=== PATIENT | female | born 1950 | race Caucasian/White ===

== ENCOUNTER 2016-08-01 19:05 | Emergency (ER) | payer OTHER ==
[2016-08-01 19:18] VITALS: BP 133/67; PULSE 94; RESP 16; TEMP 98.1; O2SAT 89
--- NOTE | 2016-08-01 20:04 | EDPHY ---
H & P Time Seen by Provider: 08/01/16 19:35 HPI/ROS: CHIEF COMPLAINT: out of medication HISTORY OF PRESENT ILLNESS: Patient is a 66-year-old female with a history of scleroderma on chronic pain medicine who presents to the emergency department running out of her Oxy IR. She states that she had medicine due to the holiday. She has been unable to get into Dr. Mcfadden's office for refill. She has no new complaints. She has her typical pain. It is mild to moderate. No shortness of breath, chest pain, nausea or vomiting. REVIEW OF SYSTEMS: My complete review of systems is negative except as mentioned in the HPI. Past Medical/Surgical History: Cecal CA, Sjogren syndrome, Raynaud syndrome, bipolar disorder, SVT, depression , diabetes, coronary artery disease, scleroderma, Past surgical history: Includes hemicolectomy right hip ORIF, cholecystectomy, bilateral hernia repair Smoking Status: Heavy smoker Physical Exam: Vitals noted GENERAL: Well-appearing, in no acute distress, alert. HEENT: Eyes normal to inspection, normal pharynx, no signs of dehydration. NECK: No thyromegaly, no lymphadenopathy, supple. RESPIRATORY: Clear to auscultation bilaterally, no rales, rhonchi or wheezing. CVS: Regular rate and rhythm, no rubs, murmurs, or gallops. ABDOMEN: Soft, nontender, nondistended, no organomegaly. BACK: Normal to inspection, no CVA tenderness. SKIN: Normal color, no rash, warm, dry. No pallor. EXTREMITIES: No pedal edema, no calf tenderness, no joint swelling. NEURO/PSYCH: Alert and oriented x3, normal mood and affect Constitutional: Initial Vital Signs Temperature (C) 36.7 C 08/01/16 19:15 Heart Rate 94 08/01/16 19:15 Respiratory Rate 16 08/01/16 19:15 Blood Pressure 133/67 H 08/01/16 19:15 O2 Sat (%) 89 L 08/01/16 19:15 O2 Delivery Mode Room Air Allergies/Adverse Reactions: lorazepam [From Ativan] Allergy (Severe, Verified 08/01/16 19:13) fluconazole [From Diflucan] Allergy (Intermediate, Verified 08/01/16 19:13) Penicillins Allergy (Intermediate, Verified 08/01/16 19:13) Sulfa (Sulfonamide Antibiotics) Allergy (Intermediate, Verified 08/01/16 19:13) haloperidol [From Haldol] Allergy (Verified 08/01/16 19:13) haloperidol lactate [From Haldol] Allergy (Verified 08/01/16 19:13) levofloxacin Allergy (Verified 08/01/16 19:13) Quinolones Allergy (Verified 08/01/16 19:13) zolpidem tartrate [From Ambien] Allergy (Verified 08/01/16 19:13) Other-Enter Comments Home Medications: Medication Instructions Recorded Diltiazem HCl [Diltiazem 24Hr ER] 120 mg PO DAILY 04/05/14 Clopidogrel Bisulfate [Plavix (*)] 75 mg PO DAILY #14 tab 04/16/14 Levothyroxine [Synthroid 75 mcg 75 mcg PO DAILY06 #14 tab 04/16/14 (*)] Acetaminophen [Tylenol 325mg (*)] 650 mg PO Q4H PRN 06/21/16 Cholecalciferol Vit D3 [Vitamin D3 2,000 units PO DAILY18 06/21/16 (*)] Diazepam [Valium 5 MG (*)] 5 mg PO DAILY PRN 06/21/16 Eszopiclone [Lunesta] 2 mg PO HS 06/21/16 FLUoxetine [Prozac 20 MG (*)] 60 mg PO DAILY 06/21/16 Furosemide [Lasix 20 MG (*)] 20 mg PO DAILY 06/21/16 Olanzapine [Zyprexa] 5 mg PO HS 06/21/16 Ondansetron HCl [Zofran] 4 mg PO Q8H PRN 06/21/16 Pantoprazole Sodium 20 mg PO BID 06/21/16 Simvastatin [Zocor 10 mg] 10 mg PO HS 06/21/16 lamOTRIGine [Lamotrigine ER] 300 mg PO DAILY 06/21/16 oxyCODONE HCL/ACETAMINOPHEN 1 each PO BID PRN 06/21/16 [Percocet 10-325 mg Tablet] Acetaminophen [Tylenol 325mg (*)] 650 mg PO Q4HRS PRN #0 tab 06/25/16 Lidocaine 5% [Lidoderm 5% Patch 1 ea TD DAILY #30 patch 06/25/16 (*)] Patch Removal 1 ea TD DAILY21 #0 patch 06/25/16 Sodium Chloride [Salt Tablet] 1 gm PO BIDAC #60 tab 06/25/16 oxyCODONE IR [Oxycodone Ir (*)] 5 - 10 mg PO Q3HRS PRN #30 tab 06/25/16 oxyCODONE IR [Oxycodone Ir (*)] 5 mg PO TID #15 tab 08/01/16 Medical Decision Making ED Course/Re-evaluation: In the emergency department I discussed medication refill. The patient will be given a single prescription for pain medication. She was informed she will not be given a 2nd refilled from the emergency department. The patient was given warnings prior to leaving. She will return with worsening symptoms. Differential Diagnosis: My differential includes but is not limited to drug-seeking behavior, medication refill, scleroderma, chronic pain Departure - Departure Disposition: Home, Routine, Self-Care Clinical Impression: Medication refill Condition: Good Instructions: Medicine Refill (ED) Referrals: Fernanda Mcfadden MD [Primary Care Provider] - 2-3 days, call for appt. Prescriptions: oxyCODONE IR [Oxycodone Ir (*)] 5 mg PO TID #15 tab
== END 2016-08-01 20:18 | disposition home or self-care (01) ==
DX: Z76.0 Encounter for issue of repeat prescription (principal); E11.9 Type 2 diabetes mellitus without complications; I25.10 Atherosclerotic heart disease of native coronary artery without angina pectoris; F17.200 Nicotine dependence, unspecified, uncomplicated; Z85.038 Personal history of other malignant neoplasm of large intestine

== ENCOUNTER 2016-08-16 22:02 | Emergency (ER) | payer OTHER ==
[2016-08-16 22:16] VITALS: TEMP 98.1
[2016-08-16 22:59] LABS: % IMMATURE GRANULYOCYTES 0.3 % (0.0-1.1); ABSOLUTE IMMATURE GRANULOCYTES 0.04 10^3/uL (0.00-0.10); ADD DIFF? NO; ADD MORPH? NO; ADD SCAN? NO; ATYPICAL LYMPHOCYTE FLAG 10 (0-99); FRAGMENT RBC FLAG 20 (0-99); HEMATOCRIT 35.3 % (38.0-47.0); HEMOGLOBIN 11.8 g/dL (12.6-16.3); LEFT SHIFT FLG 0 (0-99); LIPEMIA HEMOLYSIS FLAG 80 (0-99); MEAN CELL HEMOGLOBIN 28.1 pg (27.9-34.1); MEAN CELL HEMOGLOBIN CONCENTR. 33.4 g/dL (32.4-36.7); MEAN PLATELET VOLUME 9.8 fL (8.7-11.7); PLATELET CLUMPS FLAG 0 (0-99); PLATELET COUNT 328 10^3/uL (150-400)
[2016-08-16 23:19] LABS: ANION GAP 12 mEq/L (8-16); CARBON DIOXIDE 22 mEq/l (22-31); CHLORIDE 92 mEq/L (97-110); CREATININE 0.4 mg/dL (0.6-1.0); ETHANOL SERUM < 10 mg/dL (0-10); GLOMERULAR FILTRATION RATE > 60; GLUCOSE 102 mg/dL (70-100); POTASSIUM 4.6 mEq/L (3.5-5.2); SALICYLATE < 1.0 mg/dL (2.0-20.0); SODIUM 126 mEq/L (134-144); SPECIMEN HEMOLYSIS 102
--- NOTE | 2016-08-17 00:09 | EDPHY ---
H & P Stated Complaint: convulsions, etoh, meds withdrawal? HPI/ROS: CHIEF COMPLAINT: Shaking HISTORY OF PRESENT ILLNESS: patient presents from her independent living facility with complaints of shaking. She says that she feels she needs more pain medication than she has been giving. She has chronic pain medications prescribed by paint sprayer sandblaster, but she feels that they are not being administered appropriately. She has multiple areas of chronic pain that they are treating, including a chronic T8 fracture of the DP managed by neurosurgery. No fever chills. No chest pain or shortness of breath. No abdominal pain. No injury to the arms or legs. She has chronic abnormalities of the feet that are at baseline and managed by clean out driller. No urinary complaints. No confusion. No headache or dizziness. Some shaking/ tremors that she reports are related to not having enough pain medication. No other associated complaints or modifying factors. REVIEW OF SYSTEMS: Ten systems reviewed and are negative unless otherwise noted in the HPI EXAMINATION General Appearance: Alert, no distress Head: normocephalic, atraumatic Eyes: Pupils equal and round, no conjunctival pallor or injection ENT, Mouth: Mucous membranes moist . Uvula midline. Neck: Normal inspection, supple, non-tender . Respiratory: Scattered rhonchi. No wheezing, consolidation or diminishment Cardiovascular: Regular rate and rhythm No wheezing rhonchi or crackles Gastrointestinal: Abdomen is soft and nontender. . No tympany, rigidity. Nonacute abdomen Back: mild tenderness at multiple levels. No step-off, crepitus or deformity. No midline tenderness. Neurological: A&O x4, Two through 12 grossly intact. Strength is 5/5 in all limbs. Sensory intact. No pronator drift. No tremor or seizure activity. NIH stroke scale 0. Skin: Warm and dry, no rash Extremities: mild tenderness to palpation of the right foot. There is a postop shoe in place. Range of motion is limited the right foot which is baseline. No point tenderness of the location. Neurovascular intact with brisk cap refill. Psychiatric: Mood and affect normal . No suicidal ideation. No homicidal ideation. DIFFERENTIAL DIAGNOSES: Including but not limited to: Chronic pain, narcotic dependency, narcotic abuse MDM: chronic pain with multiple levels of pain medication. The patient provides a story that she feels she would not be medicated appropriately. I have discussed the case with the charge nurse who spoke with the nurse at her facility. The nursing facility says that she has been abusing her medication at that facility, thus they have locked her medications up and/or monitoring the administration. She denies any suicidal homicidal ideation. Does state she persistently feels she is not having enough pain medication. She is resting comfortably, hemodynamically stable in no acute distress. 1:00 a.m. I have re-evaluated this patient. Blood pressure is 96/65. Patient says that this is not abnormal for her in the evenings. She normally runs 100-110 systolic and daytime, and does decrease at night. Pulse ox has been marginal on room air, but she does have home oxygen that she has used time to time. I will obtain a chest x-ray to make sure that there is no pneumonia, although she has no complaints of cough, chest pain or fever. I asked her again what her main concern is this evening, and she was here asking for more pain medication. I discussed with her that I declined to give her side she is under contract with a paint sprayer sandblaster. She Respects this and says she does not want to do anything to ruin her contract with this patient. awaiting chest x- ray at this time. Plan for discharge back home she had a chest x-ray be normal she remained comfortable with that plan. 1:20 a.m. x-ray reveals chronic changes without any signs of pneumonia. Additionally, she has no history of this. On examination her lungs are consistent with COPD. She remains hemodynamically stable with mild, permissive hypoxia consistent with what she says she has at home. She also has access to oxygen at her residence. She has no chest pain. We discussed in detail the pain management center, and she is in agreement that she should only take her existing pain medication. She will contact her paint sprayer sandblaster to discuss medication reconciliation. Discharge home in stable condition. SUPERVISION: Patient was evaluated in conjunction with the supervising physician. Please see their note for details. Source: Patient Exam Limitations: No limitations - Personal History Current Tetanus Diphtheria and Acellular Pertussis (TDAP): Yes Tetanus Vaccine Date: unsure - Medical/Surgical History Hx Asthma: No Hx Chronic Respiratory Disease: Yes Hx Diabetes: No Hx Cardiac Disease: Yes Hx Renal Disease: No Hx Cirrhosis: No Hx Alcoholism: No Hx HIV/AIDS: No Hx Splenectomy or Spleen Trauma: No Other PMH: pmh- cecal CA, scleroderma, sjogrens, raynauds, resp failure 2/2 COPD , Bipolar, SVT, severe deperssion, CAD, DM, 50-60% R internal carotid stenosis, 70-80% L internal carotid stenosis. psh- hemicolectomy, R hip ORIF, maikol, umbilical hernia - Social History Smoking Status: Light smoker Constitutional: Initial Vital Signs Temperature (C) 98.1 F 08/16/16 22:13 Heart Rate 88 08/16/16 22:13 Respiratory Rate 20 08/16/16 22:13 Blood Pressure 124/67 H 08/16/16 22:13 O2 Sat (%) 89 L 08/16/16 22:13 O2 Delivery Mode Room Air O2 (L/minute) 2 Allergies/Adverse Reactions: lorazepam [From Ativan] Allergy (Severe, Verified 08/16/16 22:13) fluconazole [From Diflucan] Allergy (Intermediate, Verified 08/16/16 22:13) Penicillins Allergy (Intermediate, Verified 08/16/16 22:13) Sulfa (Sulfonamide Antibiotics) Allergy (Intermediate, Verified 08/16/16 22:13) haloperidol [From Haldol] Allergy (Verified 08/16/16 22:13) haloperidol lactate [From Haldol] Allergy (Verified 08/16/16 22:13) levofloxacin Allergy (Verified 08/16/16 22:13) Quinolones Allergy (Verified 08/16/16 22:13) zolpidem tartrate [From Ambien] Allergy (Verified 08/16/16 22:13) Other-Enter Comments Home Medications: Medication Instructions Recorded Diltiazem HCl [Diltiazem 24Hr ER] 120 mg PO DAILY 04/05/14 Clopidogrel Bisulfate [Plavix (*)] 75 mg PO DAILY #14 tab 04/16/14 Levothyroxine [Synthroid 75 mcg 75 mcg PO DAILY06 #14 tab 04/16/14 (*)] Acetaminophen [Tylenol 325mg (*)] 650 mg PO Q4H PRN 06/21/16 Cholecalciferol Vit D3 [Vitamin D3 2,000 units PO DAILY18 06/21/16 (*)] Diazepam [Valium 5 MG (*)] 5 mg PO DAILY PRN 06/21/16 Eszopiclone [Lunesta] 2 mg PO HS 06/21/16 FLUoxetine [Prozac 20 MG (*)] 60 mg PO DAILY 06/21/16 Furosemide [Lasix 20 MG (*)] 20 mg PO DAILY 06/21/16 Olanzapine [Zyprexa] 5 mg PO HS 06/21/16 Ondansetron HCl [Zofran] 4 mg PO Q8H PRN 06/21/16 Pantoprazole Sodium 20 mg PO BID 06/21/16 Simvastatin [Zocor 10 mg] 10 mg PO HS 06/21/16 lamOTRIGine [Lamotrigine ER] 300 mg PO DAILY 06/21/16 oxyCODONE HCL/ACETAMINOPHEN 1 each PO BID PRN 06/21/16 [Percocet 10-325 mg Tablet] Acetaminophen [Tylenol 325mg (*)] 650 mg PO Q4HRS PRN #0 tab 06/25/16 Lidocaine 5% [Lidoderm 5% Patch 1 ea TD DAILY #30 patch 06/25/16 (*)] Patch Removal 1 ea TD DAILY21 #0 patch 06/25/16 Sodium Chloride [Salt Tablet] 1 gm PO BIDAC #60 tab 06/25/16 oxyCODONE IR [Oxycodone Ir (*)] 5 - 10 mg PO Q3HRS PRN #30 tab 06/25/16 oxyCODONE IR [Oxycodone Ir (*)] 5 mg PO TID #15 tab 08/01/16 Medical Decision Making - Data Points Laboratory Results: Laboratory Results 08/16/16 22:47 08/16/16 22:50 08/17/16 08/16/16 08/16/16 00:30 22:50 22:47 WBC 11.80 H 10^3/uL (3.80-9.50) RBC 4.20 10^6/uL (4.18-5.33) Hgb 11.8 L g/dL (12.6-16.3) Hct 35.3 L % (38.0-47.0) MCV 84.0 fL (81.5-99.8) MCH 28.1 pg (27.9-34.1) MCHC 33.4 g/dL (32.4-36.7) RDW 17.0 H % (11.5-15.2) Plt Count 328 10^3/uL (150-400) MPV 9.8 fL (8.7-11.7) Neut % (Auto) 75.0 H % (39.3-74.2) Lymph % (Auto) 14.1 L % (15.0-45.0) [place] % (Auto) 8.3 % (4.5-13.0) Eos % (Auto) 1.8 % (0.6-7.6) Baso % (Auto) 0.5 % (0.3-1.7) Nucleat RBC Rel Count 0.0 % (0.0-0.2) Absolute Neuts (auto) 8.85 H 10^3/uL (1.70-6.50) Absolute Lymphs (auto) 1.66 10^3/uL (1.00-3.00) Absolute Monos (auto) 0.98 H 10^3/uL (0.30-0.80) Absolute Eos (auto) 0.21 10^3/uL (0.03-0.40) Absolute Basos (auto) 0.06 10^3/uL (0.02-0.10) Absolute Nucleated RBC 0.00 10^3/uL (0-0.01) Immature Gran % 0.3 % (0.0-1.1) Immature Gran # 0.04 10^3/uL (0.00-0.10) Sodium 126 L mEq/L (134-144) Potassium 4.6 mEq/L (3.5-5.2) Chloride 92 L mEq/L (97-110) Carbon Dioxide 22 mEq/l (22-31) Anion Gap 12 mEq/L (8-16) BUN 8 mg/dL (7-23) Creatinine 0.4 L mg/dL (0.6-1.0) Estimated GFR > 60 Glucose 102 H mg/dL (70-100) Calcium 9.0 mg/dL (8.5-10.4) Specimen Hemolysis 102 Salicylates < 1.0 L mg/dL (2.0-20.0) Urine Opiates Screen NON-NEGATIVE H (NEGATIVE) Acetaminophen < 10 L mcg/mL (10.0-30.0) Urine Barbiturates NEGATIVE (NEGATIVE) Ur Phencyclidine Scrn NEGATIVE (NEGATIVE) Ur Amphetamine Screen NEGATIVE (NEGATIVE) U Benzodiazepines Scrn NEGATIVE (NEGATIVE) Urine Cocaine Screen NEGATIVE (NEGATIVE) U Marijuana (THC) Screen NEGATIVE (NEGATIVE) Ethyl Alcohol < 10 mg/dL (0-10) Departure - Departure Disposition: Home, Routine, Self-Care Clinical Impression: Chronic pain, Chronic obstructive pulmonary disease with hypoxia Condition: Good Instructions: Chronic Pain (ED), Pain Management in the Elderly (ED) Referrals: Patient,NotPresent [Unknown] - As per Instructions
[2016-08-17 01:44] VITALS: BP 118/79; PULSE 78; RESP 16; O2SAT 96
--- NOTE | 2016-08-17 08:09 | DX ---
PA and lateral chest - August 17, 2016 HISTORY: Cough. COMPARISON: Portable chest June 21, 2016, PA and lateral chest April 21, 2014. FINDINGS: There is increased diffuse peribronchial thickening with indistinct right upper lobe opacit ies that on the lateral appeared to be related to atelectasis. Heart size is normal. Epicardial leads are present. Subacute right humeral neck fracture is again noted. Impression: 1. Bronchitis with indistinct right upper lobe opacities that appear to be related to atelectasis wit hout definite evidence of pneumonia. 2. Subacute right humeral neck fracture.
== END 2016-08-17 02:03 | disposition home or self-care (01) ==
LOC: EDUNIT#
DX: J44.9 Chronic obstructive pulmonary disease, unspecified (principal); R09.02 Hypoxemia; G89.29 Other chronic pain; E11.9 Type 2 diabetes mellitus without complications; I25.10 Atherosclerotic heart disease of native coronary artery without angina pectoris; F17.200 Nicotine dependence, unspecified, uncomplicated; Z85.038 Personal history of other malignant neoplasm of large intestine
CPT/HCPCS: 80305; G0480

== ENCOUNTER 2016-08-19 14:43 | Emergency (ER) | payer OTHER ==
--- NOTE | 2016-08-19 14:52 | EDPHY ---
H & P Time Seen by Provider: 08/19/16 14:51 HPI/ROS: CHIEF COMPLAINT: Convulsions HISTORY OF PRESENT ILLNESS: This 66-year-old woman presents to the emergency department for which she describes or 4 days of intermittent "convulsions." She describes these as generalized body shaking like muscle spasms which are primarily in her legs but also in the rest of her body. These are not associated with fever or chills or loss of consciousness or tongue biting or incontinence. She had norovirus early last week with nausea vomiting and diarrhea which worsened her pain medication. Her sister who is here relates that because the patient took extra morphine last week they put her medications in a box and on Friday she had an incident where she broke into it with a hammer and took extra. Patient says her symptoms today are severe. They are associated with an escalation of her whole body pain which is not completely adequately controlled. She is a pain clinic patient of Milla Torres. REVIEW OF SYSTEMS: Eye: no change in vision ENT: no sore throat Cardiac: no chest pain or syncope Pulmonary: no cough or change in chronic SOB Abdomen: Recent norovirus as above, no symptoms today. Musculoskeletal: Back and neck pain, chronic, slightly worse today. No new trauma. Skin: no rash Neuro: no headache Constitutional: no fever : no urinary symptoms A comprehensive 10 point review of systems is otherwise negative aside from elements mentioned in the history of present illness. PAST MEDICAL HISTORY: History and physical dated 06/21/2016 personally reviewed by myself. Includes COPD, bipolar disorder, hyponatremia, colon cancer , scleroderma, fibromyalgia, cholecystectomy, coronary artery disease, hypothyroidism. Social history: Currently lives at [place], [facility] with her sister. General Appearance: Alert and conversant, cooperative. Eyes: No scleral icterus. ENT, Mouth: Normal mucous membranes. Respiratory: Normal respiratory effort, breath sounds equal, lungs are clear to auscultation. Cardiovascular: Regular rate and rhythm. Gastrointestinal: Abdomen is soft and non tender. Neurological: Alert and oriented x3. Normally conversant. Face symmetric, normal movement and sensation in all extremities. Skin: Warm and dry, no rashes. Musculoskeletal: No peripheral edema and no joint swelling. No cogwheeling and no joint swelling. Compartments are soft both extremities. Normal range of motion of all extremities. Psychiatric: Not agitated. Mildly anxious. Emergency Department course/MDM: Patient was here 2 days ago and had chest x-ray and did not have pneumonia. I had noted the patient's vital signs include that she is afebrile. I think it is unlikely that these convulsions represent shaking chills from systemic bacterial or viral infection or sepsis. I do not think there represent seizures. I think it is most likely muscle spasm. Plan to check her sodium, discussed with her pain physician about plan for medications to control her muscle spasms. Discussed with Brian at 1521. OK to prescribe muscle relaxants such as Tizanidine but recommends against benzodiazepines. 1708: Urine noted is positive for UTI, Macrobid prescription called into pharmacy. Tizanidine 2mg oral and prescription for #11. She has followup in clinic tomorrow. Patient says she feels better on discharge and states she is comfortable going home. Smoking Status: Light smoker Constitutional: Initial Vital Signs Temperature (C) 36.8 C 08/19/16 14:51 Heart Rate 78 08/19/16 14:51 Respiratory Rate 18 08/19/16 14:51 Blood Pressure 117/61 08/19/16 14:51 O2 Sat (%) 93 08/19/16 14:51 O2 Delivery Mode Room Air Allergies/Adverse Reactions: lorazepam [From Ativan] Allergy (Severe, Verified 08/16/16 22:13) fluconazole [From Diflucan] Allergy (Intermediate, Verified 08/16/16 22:13) Penicillins Allergy (Intermediate, Verified 08/16/16 22:13) Sulfa (Sulfonamide Antibiotics) Allergy (Intermediate, Verified 08/16/16 22:13) haloperidol [From Haldol] Allergy (Verified 08/16/16 22:13) haloperidol lactate [From Haldol] Allergy (Verified 08/16/16 22:13) levofloxacin Allergy (Verified 08/16/16 22:13) Quinolones Allergy (Verified 08/16/16 22:13) zolpidem tartrate [From Ambien] Allergy (Verified 08/16/16 22:13) Other-Enter Comments Home Medications: Medication Instructions Recorded Diltiazem HCl [Diltiazem 24Hr ER] 120 mg PO DAILY 04/05/14 Clopidogrel Bisulfate [Plavix (*)] 75 mg PO DAILY #14 tab 04/16/14 Levothyroxine [Synthroid 75 mcg 75 mcg PO DAILY06 #14 tab 04/16/14 (*)] Acetaminophen [Tylenol 325mg (*)] 650 mg PO Q4H PRN 06/21/16 Cholecalciferol Vit D3 [Vitamin D3 2,000 units PO DAILY18 06/21/16 (*)] Diazepam [Valium 5 MG (*)] 5 mg PO DAILY PRN 06/21/16 Eszopiclone [Lunesta] 2 mg PO HS 06/21/16 FLUoxetine [Prozac 20 MG (*)] 60 mg PO DAILY 06/21/16 Furosemide [Lasix 20 MG (*)] 20 mg PO DAILY 06/21/16 Olanzapine [Zyprexa] 5 mg PO HS 06/21/16 Ondansetron HCl [Zofran] 4 mg PO Q8H PRN 06/21/16 Pantoprazole Sodium 20 mg PO BID 06/21/16 Simvastatin [Zocor 10 mg] 10 mg PO HS 06/21/16 lamOTRIGine [Lamotrigine ER] 300 mg PO DAILY 06/21/16 oxyCODONE HCL/ACETAMINOPHEN 1 each PO BID PRN 06/21/16 [Percocet 10-325 mg Tablet] Acetaminophen [Tylenol 325mg (*)] 650 mg PO Q4HRS PRN #0 tab 06/25/16 Lidocaine 5% [Lidoderm 5% Patch 1 ea TD DAILY #30 patch 06/25/16 (*)] Patch Removal 1 ea TD DAILY21 #0 patch 06/25/16 Sodium Chloride [Salt Tablet] 1 gm PO BIDAC #60 tab 06/25/16 oxyCODONE IR [Oxycodone Ir (*)] 5 - 10 mg PO Q3HRS PRN #30 tab 06/25/16 oxyCODONE IR [Oxycodone Ir (*)] 5 mg PO TID #15 tab 08/01/16 Nitrofurantoin Macrobid [Macrobid] 100 mg PO Q12 #14 cap 08/19/16 tiZANidine HCL [Zanaflex 2MG (*)] 2 mg PO Q12 PRN #11 tab 08/19/16 Medical Decision Making - Data Points Laboratory Results: Laboratory Results 08/19/16 14:50 08/19/16 14:50 08/19/16 08/19/16 16:35 14:50 WBC 9.46 10^3/uL (3.80-9.50) RBC 4.52 10^6/uL (4.18-5.33) Hgb 12.8 g/dL (12.6-16.3) Hct 38.2 % (38.0-47.0) MCV 84.5 fL (81.5-99.8) MCH 28.3 pg (27.9-34.1) MCHC 33.5 g/dL (32.4-36.7) RDW 16.9 H % (11.5-15.2) Plt Count 400 D 10^3/uL (150-400) MPV 10.3 fL (8.7-11.7) Neut % (Auto) 71.1 % (39.3-74.2) Lymph % (Auto) 18.7 % (15.0-45.0) [place] % (Auto) 9.0 % (4.5-13.0) Eos % (Auto) 0.6 % (0.6-7.6) Baso % (Auto) 0.3 % (0.3-1.7) Nucleat RBC Rel Count 0.0 % (0.0-0.2) Absolute Neuts (auto) 6.72 H 10^3/uL (1.70-6.50) Absolute Lymphs (auto) 1.77 10^3/uL (1.00-3.00) Absolute Monos (auto) 0.85 H 10^3/uL (0.30-0.80) Absolute Eos (auto) 0.06 10^3/uL (0.03-0.40) Absolute Basos (auto) 0.03 10^3/uL (0.02-0.10) Absolute Nucleated RBC 0.00 10^3/uL (0-0.01) Immature Gran % 0.3 % (0.0-1.1) Immature Gran # 0.03 10^3/uL (0.00-0.10) Sodium 128 L mEq/L (134-144) Potassium 4.5 mEq/L (3.5-5.2) Chloride 92 L mEq/L (97-110) Carbon Dioxide 24 mEq/l (22-31) Anion Gap 12 mEq/L (8-16) BUN 7 mg/dL (7-23) Creatinine 0.4 L mg/dL (0.6-1.0) Estimated GFR > 60 Glucose 123 H mg/dL (70-100) Calcium 9.2 mg/dL (8.5-10.4) Urine Color YELLOW Urine Appearance CLEAR Urine pH 7.0 (5.0-7.5) Ur Specific [place] 1.003 (1.002-1.030) Urine Protein NEGATIVE (NEGATIVE) Urine Ketones NEGATIVE (NEGATIVE) Urine Blood 1+ H (NEGATIVE) Urine Nitrate POSITIVE H (NEGATIVE) Urine Bilirubin NEGATIVE (NEGATIVE) Urine Urobilinogen NEGATIVE EU (0.2-1.0) Ur Leukocyte Esterase 2+ H (NEGATIVE) Urine RBC 1-3 /hpf (0-3) Urine WBC 25-50 H /hpf (0-3) Ur Epithelial Cells TRACE /lpf (NONE-1+) Urine Bacteria 1+ H /hpf (NONE SEEN) Urine Glucose NEGATIVE (NEGATIVE) Medications Given: Discontinued Medications Tizanidine HCl (Zanaflex) 2 mg PO EDNOW ONE Stop: 08/19/16 15:27 Last Admin: 08/19/16 15:49 Dose: 2 mg Departure - Departure Disposition: Home, Routine, Self-Care Clinical Impression: Muscle spasm, Urinary tract infection Condition: Good Instructions: Muscle Spasm (ED), Urinary Tract Infection in Women (ED) Additional Instructions: Your sodium was 128 today. Referrals: Fernanda Mcfadden MD [Primary Care Provider] - As per Instructions Milla Torres RN [Certified Nurse Practioner] - As per Instructions Prescriptions: Nitrofurantoin Macrobid [Macrobid] 100 mg PO Q12 #14 cap tiZANidine HCL [Zanaflex 2MG (*)] 2 mg PO Q12 PRN #11 tab PRN Reason: muscle spasm
[2016-08-19 15:14] LABS: % IMMATURE GRANULYOCYTES 0.3 % (0.0-1.1); ABSOLUTE IMMATURE GRANULOCYTES 0.03 10^3/uL (0.00-0.10); ADD DIFF? NO; ADD MORPH? NO; ADD SCAN? NO; ATYPICAL LYMPHOCYTE FLAG 20 (0-99); FRAGMENT RBC FLAG 20 (0-99); HEMATOCRIT 38.2 % (38.0-47.0); HEMOGLOBIN 12.8 g/dL (12.6-16.3); LEFT SHIFT FLG 0 (0-99); LIPEMIA HEMOLYSIS FLAG 80 (0-99); MEAN CELL HEMOGLOBIN 28.3 pg (27.9-34.1); MEAN CELL HEMOGLOBIN CONCENTR. 33.5 g/dL (32.4-36.7); MEAN CELL VOLUME 84.5 fL (81.5-99.8); MEAN PLATELET VOLUME 10.3 fL (8.7-11.7); PLATELET CLUMPS FLAG 0 (0-99); PLATELET COUNT 400 10^3/uL (150-400); RED BLOOD CELL COUNT 4.52 10^6/uL (4.18-5.33); RED CELL DISTRIBUTION WIDTH 16.9 % (11.5-15.2)
[2016-08-19 15:26] VITALS: RESP 18; TEMP 98.2; O2SAT 93
[2016-08-19] MEDS ORDERED: tiZANidine HCL 2 MG TAB PO ONE (15:26)
[2016-08-19 15:28] LABS: ANION GAP 12 mEq/L (8-16); CALCIUM 9.2 mg/dL (8.5-10.4); CARBON DIOXIDE 24 mEq/l (22-31); CHLORIDE 92 mEq/L (97-110); CREATININE 0.4 mg/dL (0.6-1.0); GLOMERULAR FILTRATION RATE > 60; GLUCOSE 123 mg/dL (70-100); POTASSIUM 4.5 mEq/L (3.5-5.2); SODIUM 128 mEq/L (134-144)
[2016-08-19 16:40] LABS: COLOR YELLOW; LEUKOCYTE ESTERASE,URINE 2+ (NEGATIVE); NITRITE,URINE POSITIVE (NEGATIVE)
[2016-08-19 16:46] LABS: BACTERIA 1+ /hpf (NONE SEEN); WBC,URINE 25-50 /hpf (0-3)
[2016-08-19 17:13] VITALS: BP 134/82; PULSE 87
== END 2016-08-19 17:06 | disposition home or self-care (01) ==
LOC: EDUNIT#
DX: M62.838 Other muscle spasm (principal); N39.0 Urinary tract infection, site not specified; B96.89 Other specified bacterial agents as the cause of diseases classified elsewhere; J44.9 Chronic obstructive pulmonary disease, unspecified; I25.10 Atherosclerotic heart disease of native coronary artery without angina pectoris; F17.200 Nicotine dependence, unspecified, uncomplicated; Z85.038 Personal history of other malignant neoplasm of large intestine

== ENCOUNTER 2016-08-22 03:53 | Inpatient (IN) | payer OTHER ==
[2016-08-22] MEDS ORDERED: NS 1,000 ML IV ONE ×2 (04:03)
[2016-08-22] MEDS ORDERED: ONDANSETRON 4 MG/2 ML VIAL IVP ONE (04:03)
--- NOTE | 2016-08-22 04:06 | EDPHY ---
H & P Time Seen by Provider: 08/22/16 04:00 HPI/ROS: CHIEF COMPLAINT: Nausea vomiting HISTORY OF PRESENT ILLNESS: The patient is a 66-year-old female who is brought to the emergency department by EMS for nausea vomiting and diarrhea. She is concerned about opiate withdrawal. She has a history of chronic back pain managed at the pain clinic by Dr. Milla Torres. She and her doctor decided to discontinue her medications yesterday because she was becoming dependent upon them. She has not had any opiates for in the last 16 hours. She states that she beginning to have nausea and vomiting and diarrhea. She did have a infection for norovirus a couple of weeks ago that has since resolved. This is her 3rd visit to the ER in the last week. She has been afebrile. She is not tachycardic. She denies chest pain or shortness of breath. She denies body aches. REVIEW OF SYSTEMS: Constitutional: denies: chills, fever, recent illness, recent injury EENTM: denies: blurred vision, double vision, nose congestion Respiratory: denies: cough, shortness of breath Cardiac: denies: chest pain, irregular heart rate, lightheadedness, palpitations Gastrointestinal/Abdominal: denies: See HPI Genitourinary: denies: dysuria, frequency, hematuria, pain Musculoskeletal: denies: joint pain, muscle pain Skin: denies: lesions, rash, jaundice, bruising Neurological: denies: headache, numbness, paresthesia, tingling, dizziness, weakness Hematologic/Lymphatic: denies: blood clots, easy bleeding, easy bruising Immunologic/allergic: denies: HIV/AIDS, transplant EXAM: GENERAL: Well-appearing, well-nourished and in no acute distress. HEAD: Atraumatic, normocephalic. EYES: Pupils equal round and reactive to light, extraocular movements intact, sclera anicteric, conjunctiva are normal. ENT: TMs normal, nares patent, oropharynx clear without exudates. Moist mucous membranes. NECK: Normal range of motion, supple without lymphadenopathy or JVD. LUNGS: Breath sounds clear to auscultation bilaterally and equal. No wheezes rales or rhonchi. HEART: Regular rate and rhythm without murmurs, rubs or gallops. ABDOMEN: Soft, scar tissue present, nontender, normoactive bowel sounds. No guarding, no rebound. No masses appreciated. BACK: No CVA tenderness, no spinal tenderness, step-offs or deformities EXTREMITIES: Normal range of motion, no pitting or edema. No clubbing or cyanosis. NEUROLOGICAL: Cranial nerves II through XII grossly intact. Normal speech, normal gait. 5/5 strength, normal movement in all extremities, normal sensation PSYCH: Normal mood, normal affect. SKIN: Warm, dry, normal turgor, no visible rashes or lesions. Source: Patient Exam Limitations: No limitations - Personal History Tetanus Vaccine Date: unsure - Medical/Surgical History Hx Asthma: No Hx Chronic Respiratory Disease: Yes Hx Diabetes: No Hx Cardiac Disease: Yes Hx Renal Disease: No Hx Cirrhosis: No Hx Alcoholism: No Hx HIV/AIDS: No Hx Splenectomy or Spleen Trauma: No Other PMH: pmh- cecal CA, scleroderma, sjogrens, raynauds, resp failure 2/2 COPD , Bipolar, SVT, severe deperssion, CAD, DM, 50-60% R internal carotid stenosis, 70-80% L internal carotid stenosis. psh- hemicolectomy, R hip ORIF, maikol, umbilical hernia - Family History Significant Family History: No pertinent family hx - Social History Smoking Status: Light smoker Alcohol Use: Sober Drug Use: None Constitutional: Initial Vital Signs Temperature (C) 36.6 C 08/22/16 04:05 Heart Rate 83 08/22/16 04:05 Respiratory Rate 16 08/22/16 04:05 Blood Pressure 105/65 08/22/16 04:05 O2 Sat (%) 95 08/22/16 04:05 O2 Delivery Mode Room Air Allergies/Adverse Reactions: lorazepam [From Ativan] Allergy (Severe, Verified 08/16/16 22:13) fluconazole [From Diflucan] Allergy (Intermediate, Verified 08/16/16 22:13) Penicillins Allergy (Intermediate, Verified 08/16/16 22:13) Sulfa (Sulfonamide Antibiotics) Allergy (Intermediate, Verified 08/16/16 22:13) haloperidol [From Haldol] Allergy (Verified 08/16/16 22:13) haloperidol lactate [From Haldol] Allergy (Verified 08/16/16 22:13) levofloxacin Allergy (Verified 08/16/16 22:13) Quinolones Allergy (Verified 08/16/16 22:13) zolpidem tartrate [From Ambien] Allergy (Verified 08/16/16 22:13) Other-Enter Comments Home Medications: Medication Instructions Recorded Diltiazem HCl [Diltiazem 24Hr ER] 120 mg PO DAILY 04/05/14 Clopidogrel Bisulfate [Plavix (*)] 75 mg PO DAILY #14 tab 04/16/14 Acetaminophen [Tylenol 325mg (*)] 650 mg PO Q4H PRN 06/21/16 Cholecalciferol Vit D3 [Vitamin D3 2,000 units PO DAILY18 06/21/16 (*)] Eszopiclone [Lunesta] 2 mg PO HS 06/21/16 FLUoxetine [Prozac 20 MG (*)] 40 mg PO DAILY 06/21/16 Furosemide [Lasix 20 MG (*)] 20 mg PO DAILY 06/21/16 Ondansetron HCl [Zofran] 4 mg PO Q8H PRN 06/21/16 Pantoprazole Sodium 20 mg PO HS 06/21/16 Simvastatin [Zocor 10 mg] 10 mg PO HS 06/21/16 lamOTRIGine [Lamotrigine ER] 300 mg PO DAILY 06/21/16 tiZANidine HCL [Zanaflex 2MG (*)] 2 mg PO Q12 PRN #11 tab 08/19/16 Levothyroxine [Synthroid 75 mcg 75 mcg PO TH 08/22/16 (*)] oxyCODONE IR [Oxycodone Ir (*)] 10 mg PO Q4 PRN 08/22/16 Medical Decision Making ED Course/Re-evaluation: Patient now tells me that she has actually been vomiting for about 10 days but it seemed to lighten up for a few days in the middle. She has been vomiting long before she decided to stop taking narcotics. Diagnosis of norovirus was clinical, no tests verifying it. Vital signs remained stable. We discussed her low sodium. Around Thanksgiving was 114 and she was admitted for 4 days at that time with her hyponatremia thought to be more multifactorial from poor p.o. intake and SSRIs and hypothyroidism. She was discharged on salt tablets which she no longer takes. She continues to deny abdominal pain. 5:35 a.m. I discussed the case with Dr. Sadia Welch will admit for hyponatremia. Differential Diagnosis: Partial list of the Differential diagnosis considered include but were not limited to; electrolyte abnormality, opiate withdrawal, gastroenteritis and although unlikely based on the history and physical exam, I also considered malabsorption, hypothyroid, psychogenic polydipsia. - Data Points Laboratory Results: Laboratory Results 08/22/16 04:25 08/22/16 04:25 Medications Given: Discontinued Medications Sodium Chloride (Ns) 1,000 mls @ 0 mls/hr IV ONCE ONE PRN Reason: Wide Open Stop: 08/22/16 04:04 Last Admin: 08/22/16 04:20 Dose: 1,000 mls Sodium Chloride (Ns) 1,000 mls @ 0 mls/hr IV ONCE ONE PRN Reason: Wide Open Stop: 08/22/16 04:04 Last Admin: 08/22/16 04:20 Dose: 1,000 mls Potassium Chloride (Potassium Cl 10 Meq (Premix)) 100 mls @ 100 mls/hr IV Q1H ECHO Stop: 08/23/16 09:59 Last Admin: 08/23/16 09:27 Dose: Not Given Ondansetron HCl (Zofran) 8 mg IVP EDNOW ONE Stop: 08/22/16 04:04 Last Admin: 08/22/16 04:20 Dose: 8 mg Oxycodone HCl (Oxycodone Ir) 5 mg PO TID ECHO Stop: 09/01/16 08:59 Last Admin: 08/23/16 08:34 Dose: 5 mg Potassium Chloride (Klor-Con) 10 - 40 meq PO ONCE ONE PRN Reason: Protocol Stop: 08/23/16 09:06 Last Admin: 08/23/16 09:13 Dose: 40 meq Departure - Departure Disposition: [facility] Inpatient Acute Clinical Impression: Hyponatremia syndrome Condition: Fair
[2016-08-22 05:01] LABS: % IMMATURE GRANULYOCYTES 0.2 % (0.0-1.1); ABSOLUTE IMMATURE GRANULOCYTES 0.03 10^3/uL (0.00-0.10); ADD DIFF? NO; ADD MORPH? NO; ADD SCAN? NO; ATYPICAL LYMPHOCYTE FLAG 10 (0-99); FRAGMENT RBC FLAG 20 (0-99); HEMATOCRIT 35.4 % (38.0-47.0); HEMOGLOBIN 12.6 g/dL (12.6-16.3); LEFT SHIFT FLG 0 (0-99); LIPEMIA HEMOLYSIS FLAG 90 (0-99); MEAN CELL HEMOGLOBIN 28.7 pg (27.9-34.1); MEAN CELL HEMOGLOBIN CONCENTR. 35.6 g/dL (32.4-36.7); MEAN CELL VOLUME 80.6 fL (81.5-99.8); MEAN PLATELET VOLUME 9.8 fL (8.7-11.7); PLATELET CLUMPS FLAG 0 (0-99); PLATELET COUNT 440 10^3/uL (150-400); RED BLOOD CELL COUNT 4.39 10^6/uL (4.18-5.33); RED CELL DISTRIBUTION WIDTH 16.1 % (11.5-15.2)
[2016-08-22 05:11] LABS: ANION GAP 12 mEq/L (8-16); CALCIUM 9.1 mg/dL (8.5-10.4); CARBON DIOXIDE 21 mEq/l (22-31); CHLORIDE 88 mEq/L (97-110); CREATININE 0.4 mg/dL (0.6-1.0); GLOMERULAR FILTRATION RATE > 60; GLUCOSE 98 mg/dL (70-100); POTASSIUM 3.8 mEq/L (3.5-5.2); SODIUM 121 mEq/L (134-144)
--- NOTE | 2016-08-22 06:31 | PDGENHP ---
History and Physical - Chief Complaint nausea and vomiting - History of Present Illness 66 yo female with h/o COPD, bipolar disorder, chronic pain and opioid dependence presents to ED with nausea, vomiting and poor oral intake. She was recently diagnosed with norovirus, though denies diarrhea at this time. She reports abruptly stopped her chronic opiates at the direction of her chronic pain provider at the [facility] pain clinic. She was apparently to go to [facility] for inpatient opiate detox, but there were no beds available. She took her last dose of opiates yesterday at noon and began having nausea and vomiting last night. She was also recently diagnosed with a UTI and was prescribed Macrobid, but did not take this as she opted to try cranberry juice first. She denies fevers, chills, abdominal pain, dysuria, frequency or urgency. In the ED, she was found to be hyponatremic and is admitted for further management. Of note, she was recently admitted for hyponatremia in 05/2016, at which time it was thought to be multi-factorial due to poor oral intake, SSRI, and hypothyroidism. SIADH was also considered to be likely per renal consultation. She was discharged home on salt tabs and a fluid restriction, but she has not been taking the salt tabs. History Information - Allergies/Home Medication List Allergies/Adverse Reactions: lorazepam [From Ativan] Allergy (Severe, Verified 08/16/16 22:13) fluconazole [From Diflucan] Allergy (Intermediate, Verified 08/16/16 22:13) Penicillins Allergy (Intermediate, Verified 08/16/16 22:13) Sulfa (Sulfonamide Antibiotics) Allergy (Intermediate, Verified 08/16/16 22:13) haloperidol [From Haldol] Allergy (Verified 08/16/16 22:13) haloperidol lactate [From Haldol] Allergy (Verified 08/16/16 22:13) levofloxacin Allergy (Verified 08/16/16 22:13) Quinolones Allergy (Verified 08/16/16 22:13) zolpidem tartrate [From Ambien] Allergy (Verified 08/16/16 22:13) Other-Enter Comments Home Medications: Diltiazem HCl [Diltiazem 24Hr ER] 120 mg PO DAILY 04/05/14 [Last Taken 07/15/14] Acetaminophen [Tylenol 325mg (*)] 650 mg PO Q4H PRN 06/21/16 [Last Taken Unknown ] Cholecalciferol Vit D3 [Vitamin D3 (*)] 2,000 units PO DAILY18 06/21/16 [Last Taken Unknown] Diazepam [Valium 5 MG (*)] 5 mg PO DAILY PRN 06/21/16 [Last Taken Unknown] Eszopiclone [Lunesta] 2 mg PO HS 06/21/16 [Last Taken Unknown] FLUoxetine [Prozac 20 MG (*)] 60 mg PO DAILY 06/21/16 [Last Taken Unknown] Furosemide [Lasix 20 MG (*)] 20 mg PO DAILY 06/21/16 [Last Taken Unknown] Olanzapine [Zyprexa] 5 mg PO HS 06/21/16 [Last Taken Unknown] Ondansetron HCl [Zofran] 4 mg PO Q8H PRN 06/21/16 [Last Taken Unknown] Pantoprazole Sodium 20 mg PO BID 06/21/16 [Last Taken Unknown] Simvastatin [Zocor 10 mg] 10 mg PO HS 06/21/16 [Last Taken Unknown] lamOTRIGine [Lamotrigine ER] 300 mg PO DAILY 06/21/16 [Last Taken Unknown] oxyCODONE HCL/ACETAMINOPHEN [Percocet 10-325 mg Tablet] 1 each PO BID PRN [Last Taken Unknown] I have personally reviewed and updated: family history, medical history, social history, surgical history - Past Medical History cancer, COPD Additional medical history: scleroderma, CREST, fibromyalgia, h/o alcohol abuse , CAD, osteoporosis, hypothyroidism, bipolar disorder, colon cancer - Surgical History Reports: cholecystectomy - Family History Positive for: non-pertinent - Social History Smoking Status: Light smoker Alcohol Use: Other (drinks 2-3 beers, variable) Drug Use: None Review of Systems ROS: 10pt was reviewed & negative except for what was stated in HPI & below Physical Exam Temp Pulse Resp BP Pulse Ox 36.5 C 81 16 141/86 H 95 08/22/16 06:00 08/22/16 06:00 08/22/16 06:00 08/22/16 06:00 08/22/16 06:00 Constitutional: no apparent distress Eyes: PERRL Ears, Nose, Mouth, Throat: moist mucous membranes Cardiovascular: regular rate and rhythym Respiratory: no respiratory distress, clear to auscultation Gastrointestinal: normoactive bowel sounds, soft, non-tender abdomen Skin: warm Musculoskeletal: full muscle strength Neurologic: AAOx3 Psychiatric: interacting appropriately Lab Data & Imaging Review 08/22/16 04:25 08/22/16 04:25 WBC 12.05 10^3/uL (3.80-9.50) H 08/22/16 04:25 RBC 4.39 10^6/uL (4.18-5.33) 08/22/16 04:25 Hgb 12.6 g/dL (12.6-16.3) 08/22/16 04:25 Hct 35.4 % (38.0-47.0) L 08/22/16 04:25 MCV 80.6 fL (81.5-99.8) L 08/22/16 04:25 MCH 28.7 pg (27.9-34.1) 08/22/16 04:25 MCHC 35.6 g/dL (32.4-36.7) 08/22/16 04:25 RDW 16.1 % (11.5-15.2) H 08/22/16 04:25 Plt Count 440 10^3/uL (150-400) H 08/22/16 04:25 MPV 9.8 fL (8.7-11.7) 08/22/16 04:25 Neut % (Auto) 81.7 % (39.3-74.2) H 08/22/16 04:25 Lymph % (Auto) 12.0 % (15.0-45.0) L 08/22/16 04:25 Isabella % (Auto) 5.7 % (4.5-13.0) 08/22/16 04:25 Eos % (Auto) 0.2 % (0.6-7.6) L 08/22/16 04:25 Baso % (Auto) 0.2 % (0.3-1.7) L 08/22/16 04:25 Nucleat RBC Rel Count 0.0 % (0.0-0.2) 08/22/16 04:25 Absolute Neuts (auto) 9.84 10^3/uL (1.70-6.50) H 08/22/16 04:25 Absolute Lymphs (auto) 1.44 10^3/uL (1.00-3.00) 08/22/16 04:25 Absolute Monos (auto) 0.69 10^3/uL (0.30-0.80) 08/22/16 04:25 Absolute Eos (auto) 0.03 10^3/uL (0.03-0.40) 08/22/16 04:25 Absolute Basos (auto) 0.02 10^3/uL (0.02-0.10) 08/22/16 04:25 Absolute Nucleated RBC 0.00 10^3/uL (0-0.01) 08/22/16 04:25 Immature Gran % 0.2 % (0.0-1.1) 08/22/16 04:25 Immature Gran # 0.03 10^3/uL (0.00-0.10) 08/22/16 04:25 Sodium 121 mEq/L (134-144) L 08/22/16 04:25 Potassium 3.8 mEq/L (3.5-5.2) 08/22/16 04:25 Chloride 88 mEq/L (97-110) L 08/22/16 04:25 Carbon Dioxide 21 mEq/l (22-31) L 08/22/16 04:25 Anion Gap 12 mEq/L (8-16) 08/22/16 04:25 BUN 8 mg/dL (7-23) 08/22/16 04:25 Creatinine 0.4 mg/dL (0.6-1.0) L 08/22/16 04:25 Estimated GFR > 60 08/22/16 04:25 Glucose 98 mg/dL (70-100) 08/22/16 04:25 Calcium 9.1 mg/dL (8.5-10.4) 08/22/16 04:25 Assessment & Plan Assessment: Hyponatremia - Na 121 on arrival. She received 2L NS in ED. Will recheck BMP now. Though volume depletion may be playing a role in her hyponatremia with the nausea and vomiting, she appears euvolemic at this time. Will defer further IVF's, fluid restrict for now and check urine studies for further evaluation. She may need to resume salt tablets, but will wait for f/u labs before initiating. SSRI may be playing a role, but this has been an important part of her mental health management. Nausea and vomiting - suspect opioid withdrawal given her history of stopping opiates cold turkey yesterday. This may have hastened her hyponatremia. Will resume low dose Oxycodone to stabilize any withdrawal symptoms. Could do a rapid taper off opiates while here. She states her pain management provider wishes for her to discontinue opiates due to concern for abuse/misuse of medications. Chronic pain with opioid dependence, likely in withdrawal- as above, will continue low dose oxycodone to prevent withdrawal symptoms ?UTI - recent UCx positive for E coli and she was Rx'd Macrobid, but didn't take it. She has no symptoms now but does have a leukocytosis (could be stress response to vomiting). Will Rx short course of Macrobid. COPD - stable, cont outpt meds once med rec completed. Scleroderma with CREST Hypothyroidism - will check TSH given hyponatremia (normal in 05/2016), resume outpt levothyroxine dose once med rec completed. DVT PPLX - Lovenox Full code Dispo - inpt. Will likely require >48 hrs hospitalization for ongoing management of her hyponatremia
[2016-08-22 08:21] LABS: ANION GAP 11 mEq/L (8-16); CALCIUM 8.4 mg/dL (8.5-10.4); CARBON DIOXIDE 20 mEq/l (22-31); CHLORIDE 97 mEq/L (97-110); CREATININE 0.4 mg/dL (0.6-1.0); GLOMERULAR FILTRATION RATE > 60; GLUCOSE 111 mg/dL (70-100); POTASSIUM 3.6 mEq/L (3.5-5.2); SODIUM 128 mEq/L (134-144)
[2016-08-22] MEDS ORDERED: NITROFURANTOIN MACROBID 100 MG CAP PO ONE (09:53)
[2016-08-22] MEDS: ENOXAPARIN 40 MG/0.4 ML SYR SC SCH (10:55)
[2016-08-22] MEDS: NITROFURANTOIN MACROBID 100 MG CAP PO SCH ×2 (10:59→21:11)
[2016-08-22] MEDS: oxyCODONE IR 5 MG TAB PO SCH ×3 (10:59→21:10)
[2016-08-22] MEDS: ACETAMINOPHEN 325 MG TAB PO PRN ×2 (12:57→18:51)
[2016-08-22] MEDS: ONDANSETRON 4 MG/2 ML VIAL IVP PRN (12:58)
[2016-08-22] MEDS: PROMETHAZINE HCL 25 MG/ML INJ IVP PRN (15:51)
--- NOTE | 2016-08-22 16:29 | HOSPPROG ---
Hospitalist Progress Note Assessment/Plan: #HYPONATREMIA: SHE APPEARS DRY. WILL PROVIDE NS. UOSM, SANDRA PENDING. #N/V: BETTER. CONT ANTI-EMETICS -POSSIBLY DUE TO OPIOID WD VS OTHER #CHRONIC PAIN SYNDROME, OPIATE WD: BETTER WITH SCHEDULED LOW DOSE OXYCODONE -CONT LOW DOSE OXYCODONE #ACUTE CYSTITIS, E-COL, ON MACROBID #COPD, NOT IN EXACERBATION #SCLERODERMA WITH CREST #DECONDITIONING: NEEDS PT #HYPOTHYROIDISM -LEVOTHYROXINE -TSH: 1.7 #DVT PROPH: LOVENOX #FULL CODE S: FEELS BETTER, NO FURTHER EMESIS O: VSS NAD AAOX3 MM DRY RRR CTA B S/NT/ND NO EDEMA Objective: Vital Signs Temp Pulse Resp BP Pulse Ox 36.7 C 77 16 156/69 H 98 08/22/16 16:05 08/22/16 12:11 08/22/16 12:11 08/22/16 12:11 08/22/16 12:11 Laboratory Results 08/22/16 07:26 08/21/16 08/22/16 08/23/16 05:59 05:59 05:59 Intake Total 2150 Output Total 500 Balance 1650 ICD10 Worksheet Patient Problems: Problems Problem Status Diagnosed Colon adenocarcinoma Acute Hyponatremia syndrome Acute
[2016-08-22] MEDS ORDERED: NS 1,000 ML IV SCH (16:30)
[2016-08-22] MEDS: tiZANidine HCL 2 MG TAB PO PRN (18:51)
[2016-08-23] MEDS: ONDANSETRON DISINTEGRATING 4 MG TAB PO PRN ×3 (01:12→23:15)
[2016-08-23] MEDS: ACETAMINOPHEN 325 MG TAB PO PRN ×5 (01:12→23:15)
[2016-08-23] MEDS: tiZANidine HCL 2 MG TAB PO PRN ×4 (01:48→19:49)
[2016-08-23 05:25] LABS: % IMMATURE GRANULYOCYTES 0.4 % (0.0-1.1); ABSOLUTE IMMATURE GRANULOCYTES 0.03 10^3/uL (0.00-0.10); ADD DIFF? NO; ADD MORPH? NO; ADD SCAN? NO; ATYPICAL LYMPHOCYTE FLAG 20 (0-99); FRAGMENT RBC FLAG 0 (0-99); HEMATOCRIT 34.5 % (38.0-47.0); HEMOGLOBIN 11.6 g/dL (12.6-16.3); LEFT SHIFT FLG 0 (0-99); LIPEMIA HEMOLYSIS FLAG 80 (0-99); MEAN CELL HEMOGLOBIN 27.9 pg (27.9-34.1); MEAN CELL HEMOGLOBIN CONCENTR. 33.6 g/dL (32.4-36.7); MEAN CELL VOLUME 82.9 fL (81.5-99.8); MEAN PLATELET VOLUME 9.6 fL (8.7-11.7); PLATELET CLUMPS FLAG 0 (0-99); PLATELET COUNT 375 10^3/uL (150-400); RED BLOOD CELL COUNT 4.16 10^6/uL (4.18-5.33); RED CELL DISTRIBUTION WIDTH 16.4 % (11.5-15.2)
[2016-08-23 05:37] LABS: ANION GAP 12 mEq/L (8-16); CALCIUM 8.6 mg/dL (8.5-10.4); CARBON DIOXIDE 18 mEq/l (22-31); CHLORIDE 101 mEq/L (97-110); CREATININE 0.4 mg/dL (0.6-1.0); GLOMERULAR FILTRATION RATE > 60; GLUCOSE 97 mg/dL (70-100); MAGNESIUM 1.7 mg/dL (1.6-2.3); POTASSIUM 2.9 mEq/L (3.5-5.2); SODIUM 131 mEq/L (134-144)
[2016-08-23] MEDS ORDERED: PROTOCOL POTASSIUM 1 DOSE MISC PRN (06:35)
[2016-08-23] MEDS: POTASSIUM Cl (KCl) 100 ML IV SCH ×3 (07:23→09:27)
[2016-08-23] MEDS: oxyCODONE IR 5 MG TAB PO SCH ×2 (08:34→19:48)
[2016-08-23] MEDS: ENOXAPARIN 40 MG/0.4 ML SYR SC SCH (08:35)
[2016-08-23] MEDS: NITROFURANTOIN MACROBID 100 MG CAP PO SCH ×2 (08:37→21:27)
[2016-08-23] MEDS ORDERED: POTASSIUM CL 10 MEQ TAB PO ONE ×2 (09:05→19:41)
[2016-08-23] MEDS: ONDANSETRON 4 MG/2 ML VIAL IVP PRN ×3 (09:16→18:11)
--- NOTE | 2016-08-23 12:01 | HOSPPROG ---
Hospitalist Progress Note Assessment/Plan: #HYPONATREMIA: -NOW EUVOLEMIC ON EXAM -LABS C/W SIADH. SHE HAS LONGSTANDING SIADH -CONT WITH FLUID RESTRICTION -START SALT SUPPLEMENTATION #SIADH (LONG STANDING) #N/V: BETTER. CONT ANTI-EMETICS -POSSIBLY DUE TO OPIOID WD VS OTHER #CHRONIC PAIN SYNDROME, OPIATE WD: BETTER WITH SCHEDULED LOW DOSE OXYCODONE -CONT LOW DOSE OXYCODONE, I WILL START TO TAPER -PER NURSING REPORTS, THE PT HAS BEEN RECENTLY FIRED FROM HER PAIN SPECIALIST DUE TO MEDICATION ABUSE. HE RECCS THAT WE TAPER OFF PAIN MEDS AND NOT PROVIDE ANY AT DISCHARGE #ACUTE CYSTITIS, E-COL, ON MACROBID #COPD, NOT IN EXACERBATION #SCLERODERMA WITH CREST #MUSCLE SPASM: ZANAFLEX #DECONDITIONING: NEEDS PT #HYPOTHYROIDISM -LEVOTHYROXINE -TSH: 1.7 #HTN: START HOME MEDS #DVT PROPH: LOVENOX #FULL CODE #DISPO: CONTINUE INPATIENT. CONT PT. WEAN OFF PAIN MEDS. START SALT SUPPLEMENTATION S: FEELS BETTER, NO FURTHER EMESIS STILL WITH SOME DIARRHEA, MILD STILL SOMEWHAT WEAK BP ELEVATED O: VSS NAD AAOX3 MM DRY RRR CTA B S/NT/ND NO EDEMA LABS REVIEWED: Objective: Vital Signs Temp Pulse Resp BP Pulse Ox 36.6 C 76 16 125/70 H 100 08/23/16 07:36 08/23/16 11:26 08/23/16 11:26 08/23/16 11:26 08/23/16 11:26 Laboratory Results 08/23/16 05:04 08/23/16 05:04 08/22/16 08/23/16 08/24/16 05:59 05:59 05:59 Intake Total 3020 Output Total 1401 Balance 1619 ICD10 Worksheet Patient Problems: Problems Problem Status Diagnosed Colon adenocarcinoma Acute Hyponatremia syndrome Acute
[2016-08-23] MEDS: DILTIAZEM CD 120 MG CAP PO SCH (14:13)
[2016-08-23] MEDS: PROMETHAZINE HCL 25 MG/ML INJ IVP PRN (16:55)
--- NOTE | 2016-08-23 18:38 | HOSPPROG ---
Hospitalist Progress Note Assessment/Plan: Received call from ID that a nurse that was taking care of this patient was diagnosed with influenza. Patient agrees to take tamiflu prophylaxis. Objective: Vital Signs Temp Pulse Resp BP Pulse Ox 36.6 C 71 16 203/84 H 95 08/23/16 16:00 08/23/16 16:00 08/23/16 16:00 08/23/16 16:00 08/23/16 16:00 Laboratory Results 08/23/16 05:04 08/23/16 05:04 08/22/16 08/23/16 08/24/16 05:59 05:59 05:59 Intake Total 3020 450 Output Total 1401 Balance 1619 450 ICD10 Worksheet Patient Problems: Problems Problem Status Diagnosed Colon adenocarcinoma Acute Hyponatremia syndrome Acute
[2016-08-23] MEDS: SODIUM CHLORIDE 1,000 MG TAB PO SCH (19:00)
[2016-08-23 19:21] LABS: POTASSIUM 3.5 mEq/L (3.5-5.2)
[2016-08-23] MEDS: hydrALAZINE 20 MG/ML VIAL IVP PRN (19:50)
[2016-08-23] MEDS ORDERED: PANTOPRAZOLE SODIUM 20 MG PO SCH (21:00)
[2016-08-23] MEDS ORDERED: NON-FORMULARY NEW DRUG (Simvastatin [Zocor 10 Mg] 10 MG) PO SCH (21:00)
[2016-08-23] MEDS ORDERED: Eszopiclone [Lunesta] 2 MG PO SCH (21:00)
[2016-08-23] MEDS ORDERED: ESZOPICLONE 2 MG PO SCH (21:00)
[2016-08-23] MEDS: OSELTAMIVIR PHOSPHATE 75 MG CAP PO SCH (21:26)
[2016-08-23] MEDS: PRAVASTATIN SODIUM 20 MG TAB PO SCH (21:27)
[2016-08-23] MEDS ORDERED: traZODone 50 MG TAB PO ONE (22:13)
[2016-08-23] MEDS ORDERED: traZODone 50 MG TAB ONE (22:21)
[2016-08-24] MEDS: tiZANidine HCL 2 MG TAB PO PRN ×3 (03:38→18:31)
[2016-08-24] MEDS: ONDANSETRON DISINTEGRATING 4 MG TAB PO PRN (03:44)
[2016-08-24] MEDS: hydrALAZINE 20 MG/ML VIAL IVP PRN (03:54)
[2016-08-24 05:42] LABS: % IMMATURE GRANULYOCYTES 0.4 % (0.0-1.1); ABSOLUTE IMMATURE GRANULOCYTES 0.05 10^3/uL (0.00-0.10); ADD DIFF? NO; ADD MORPH? NO; ADD SCAN? NO; ATYPICAL LYMPHOCYTE FLAG 10 (0-99); FRAGMENT RBC FLAG 20 (0-99); HEMATOCRIT 42.7 % (38.0-47.0); HEMOGLOBIN 14.7 g/dL (12.6-16.3); LEFT SHIFT FLG 0 (0-99); LIPEMIA HEMOLYSIS FLAG 90 (0-99); MEAN CELL HEMOGLOBIN 28.1 pg (27.9-34.1); MEAN CELL HEMOGLOBIN CONCENTR. 34.4 g/dL (32.4-36.7); MEAN CELL VOLUME 81.5 fL (81.5-99.8); MEAN PLATELET VOLUME 9.8 fL (8.7-11.7); PLATELET CLUMPS FLAG 0 (0-99); PLATELET COUNT 522 10^3/uL (150-400); RED BLOOD CELL COUNT 5.24 10^6/uL (4.18-5.33); RED CELL DISTRIBUTION WIDTH 16.7 % (11.5-15.2)
[2016-08-24 05:54] LABS: ANION GAP 20 mEq/L (8-16); CALCIUM 9.5 mg/dL (8.5-10.4); CARBON DIOXIDE 17 mEq/l (22-31); CHLORIDE 91 mEq/L (97-110); CREATININE 0.5 mg/dL (0.6-1.0); GLOMERULAR FILTRATION RATE > 60; GLUCOSE 102 mg/dL (70-100); MAGNESIUM 1.6 mg/dL (1.6-2.3); POTASSIUM 3.3 mEq/L (3.5-5.2); SODIUM 128 mEq/L (134-144)
[2016-08-24] MEDS: oxyCODONE IR 5 MG TAB PO SCH ×2 (07:35→21:31)
[2016-08-24] MEDS: ACETAMINOPHEN 325 MG TAB PO PRN ×3 (07:35→21:47)
[2016-08-24] MEDS: ONDANSETRON 4 MG/2 ML VIAL IVP PRN (07:42)
[2016-08-24] MEDS: DILTIAZEM CD 120 MG CAP PO SCH (07:47)
[2016-08-24] MEDS: ENOXAPARIN 40 MG/0.4 ML SYR SC SCH (07:47)
[2016-08-24] MEDS: CLOPIDOGREL BISULFATE 75 MG TAB PO SCH (07:48)
[2016-08-24] MEDS: PANTOPRAZOLE SODIUM 40 MG TAB PO SCH (07:48)
[2016-08-24] MEDS: SODIUM CHLORIDE 1,000 MG TAB PO SCH ×3 (07:49→17:15)
[2016-08-24] MEDS: FLUoxetine 20 MG CAP PO SCH (07:49)
[2016-08-24] MEDS: OSELTAMIVIR PHOSPHATE 75 MG CAP PO SCH (07:49)
[2016-08-24] MEDS: LAMOTRIGINE 300 MG PO SCH (07:50)
[2016-08-24] MEDS: PROMETHAZINE HCL 25 MG/ML INJ IVP PRN (08:20)
[2016-08-24] MEDS: POTASSIUM Cl (KCl) 100 ML IV SCH ×2 (08:45→09:59)
[2016-08-24] MEDS ORDERED: LAMOTRIGINE 300 MG PO SCH (09:00)
[2016-08-24] MEDS ORDERED: MAGNESIUM SULF 1 GM/DEXTROSE 100 ML IV ONE (09:17)
[2016-08-24] MEDS ORDERED: POTASSIUM CL 20 MEQ TAB PO ONE (09:17)
[2016-08-24] MEDS: NITROFURANTOIN MACROBID 100 MG CAP PO SCH ×2 (09:30→21:32)
[2016-08-24] MEDS ORDERED: ONDANSETRON 4 MG/2 ML VIAL IVP PRN (09:42)
[2016-08-24] MEDS ORDERED: POTASSIUM CL 20 MEQ PKT PO ONE (11:54)
[2016-08-24] MEDS ORDERED: DILTIAZEM 30 MG TAB PO SCH (12:00)
[2016-08-24 14:55] LABS: ANION GAP 16 mEq/L (8-16); CALCIUM 9.5 mg/dL (8.5-10.4); CARBON DIOXIDE 20 mEq/l (22-31); CHLORIDE 91 mEq/L (97-110); CREATININE 1.1 mg/dL (0.6-1.0); GLOMERULAR FILTRATION RATE 50; GLUCOSE 121 mg/dL (70-100); MAGNESIUM 2.3 mg/dL (1.6-2.3); POTASSIUM 3.2 mEq/L (3.5-5.2); SODIUM 127 mEq/L (134-144)
[2016-08-24] MEDS ORDERED: NS 500 ML IV ONE (17:09)
[2016-08-24] MEDS: CHOLECALCIFEROL VIT D3 1,000 UNITS TAB PO SCH (17:15)
--- NOTE | 2016-08-24 17:17 | HOSPPROG ---
Hospitalist Progress Note Assessment/Plan: Assessment: 66-year-old female presents with acute nausea vomiting and diarrhea in the setting of acute opiate withdrawal Plan: 1. Nausea vomiting and diarrhea. Acute, new problem this provider, further workup indicated. Suspect that there is at least some component of opiate withdrawal as well as possible viral gastroenteritis -patient has requested a stool panel, 1 will be sent with her next bowel movement -continue supportive care with antiemetics premedicating her before meals -encourage nutritional fluid such as Ensure, and live, smoothies -provide IV normal saline with supplemental potassium 2. Hyponatremia. Acute on chronic, most likely secondary to a combination of hypovolemia as well as underlying SIADH -urine sodium level 98 indicating that patient reached euvolemic after receiving IV fluids -after holding IV fluids today, patient's serum sodium level has begun to downtrend, reinitiate IV normal saline -continue free water restriction and salt tab supplementation 3. Hypokalemia. Secondary to GI losses and poor oral intake, level remains low despite oral supplementation this a.m. -provide IV supplementation with IV fluids, continue to monitor magnesium and potassium levels 4. Chronic pain with continuous opiate dependency. Patient previously on oxycodone immediate release 10-20 mg q.4 hours, patient no longer has an outside pain medication prescriber and her previous prescriber recommends that the patient be tapered off her medications and not provided any opiates at time of discharge -oxycodone immediate release has been reduced to 5 mg twice daily, continue at this dosage in consider taper tomorrow -continue Zanaflex in the setting of opiate withdrawal 5. Acute cystitis. E coli, Macrobid sensitive, day 3 of 3 of antibiotics, discontinue tomorrow 6. COPD. Chronic, no evidence of acute exacerbation 7. Scleroderma. Chronic, continue home medications 8. Hypertension. Chronic, continue home medications 9. Acute kidney injury. Most likely secondary to hypovolemia in the setting of poor oral intake as well as ongoing use of antihypertensive medications -reinitiate IV normal saline, monitor urine output, repeat serum creatinine level tomorrow a.m. 10. Hypotension. Acute, most likely secondary to a combination of hypovolemia as well as ongoing use of diltiazem -bolus with 500 cc of normal saline -if worsening, send serum lactic acid level Diet. Encourage regular diet with supplements Code. Full Prophylaxis. Risk patient, heparin subcu Disposition. Anticipated discharge is uncertain this time, pending stabilization of above. Subjective: Reports ongoing nausea, inability to tolerate oral intake Objective: Vital Signs Temp Pulse Resp BP Pulse Ox 36.4 C 84 16 89/47 L 98 08/24/16 16:00 08/24/16 16:00 08/24/16 16:00 08/24/16 16:00 08/24/16 16:00 Laboratory Results 08/24/16 04:44 08/24/16 14:10 08/23/16 08/24/16 08/25/16 05:59 05:59 05:59 Intake Total 3020 980 540 Output Total 1401 1400 Balance 1619 -420 540 - Time Spent With Patient Time Spent with Patient: greater than 35 minutes Time Spent with Patient: Greater than 35 minutes spent on this patients care, greater than 50% of time spent counseling, educating, and coordinating care regarding the above mentioned plan. - Physical Exam Constitutional: no apparent distress, not in pain, chronically ill appearing, uncomfortable Cardiovascular: regular rate and rhythym, no murmur, rub, or gallop, No tachycardia, No bradycardia, No edema Respiratory: no respiratory distress, no rales or rhonchi, clear to auscultation Gastrointestinal: normoactive bowel sounds, soft, non-tender abdomen, no palpable masses Neurologic: AAOx3 Psychiatric: interacting appropriately, not anxious, not encephalopathic, thought process linear ICD10 Worksheet Patient Problems: Problems Problem Status Diagnosed Colon adenocarcinoma Acute Hyponatremia syndrome Acute
[2016-08-24] MEDS ORDERED: tiZANidine HCL 2 MG TAB PO PRN (19:48)
[2016-08-24] MEDS: POTASSIUM Cl (KCl) 40 MEQ in NS 1,000 ML IV SCH (19:51)
[2016-08-24] MEDS: Eszopiclone [Lunesta] 2 MG PO SCH (21:30)
[2016-08-24] MEDS: PRAVASTATIN SODIUM 20 MG TAB PO SCH ×2 (21:31→21:32)
[2016-08-24] MEDS ORDERED: traZODone 50 MG TAB PO ONE (22:13)
[2016-08-25] MEDS: tiZANidine HCL 2 MG TAB PO PRN ×5 (02:10→22:00)
[2016-08-25 05:41] LABS: % IMMATURE GRANULYOCYTES 0.2 % (0.0-1.1); ABSOLUTE IMMATURE GRANULOCYTES 0.02 10^3/uL (0.00-0.10); ADD DIFF? NO; ADD MORPH? NO; ADD SCAN? NO; ATYPICAL LYMPHOCYTE FLAG 10 (0-99); FRAGMENT RBC FLAG 0 (0-99); HEMATOCRIT 34.6 % (38.0-47.0); HEMOGLOBIN 11.6 g/dL (12.6-16.3); LEFT SHIFT FLG 0 (0-99); LIPEMIA HEMOLYSIS FLAG 80 (0-99); MEAN CELL HEMOGLOBIN 27.9 pg (27.9-34.1); MEAN CELL HEMOGLOBIN CONCENTR. 33.5 g/dL (32.4-36.7); MEAN CELL VOLUME 83.2 fL (81.5-99.8); MEAN PLATELET VOLUME 9.7 fL (8.7-11.7); PLATELET CLUMPS FLAG 0 (0-99); PLATELET COUNT 390 10^3/uL (150-400); RED BLOOD CELL COUNT 4.16 10^6/uL (4.18-5.33); RED CELL DISTRIBUTION WIDTH 16.9 % (11.5-15.2)
[2016-08-25 06:18] LABS: ANION GAP 10 mEq/L (8-16); CALCIUM 8.7 mg/dL (8.5-10.4); CARBON DIOXIDE 18 mEq/l (22-31); CHLORIDE 101 mEq/L (97-110); CREATININE 0.7 mg/dL (0.6-1.0); GLOMERULAR FILTRATION RATE > 60; GLUCOSE 108 mg/dL (70-100); MAGNESIUM 2.1 mg/dL (1.6-2.3); SODIUM 129 mEq/L (134-144)
[2016-08-25] MEDS: POTASSIUM Cl (KCl) 40 MEQ in NS 1,000 ML IV SCH (07:16)
[2016-08-25] MEDS: oxyCODONE IR 5 MG TAB PO SCH ×2 (08:08→19:58)
[2016-08-25] MEDS: CLOPIDOGREL BISULFATE 75 MG TAB PO SCH (08:10)
[2016-08-25] MEDS: OSELTAMIVIR PHOSPHATE 75 MG CAP PO SCH (08:11)
[2016-08-25] MEDS: FLUoxetine 20 MG CAP PO SCH (08:11)
[2016-08-25] MEDS: NITROFURANTOIN MACROBID 100 MG CAP PO SCH (08:13)
[2016-08-25] MEDS: SODIUM CHLORIDE 1,000 MG TAB PO SCH ×3 (08:13→17:04)
[2016-08-25] MEDS: PANTOPRAZOLE SODIUM 40 MG TAB PO SCH (08:13)
[2016-08-25] MEDS: LAMOTRIGINE 300 MG PO SCH (08:15)
[2016-08-25] MEDS: ENOXAPARIN 40 MG/0.4 ML SYR SC SCH (08:19)
[2016-08-25] MEDS: ACETAMINOPHEN 325 MG TAB PO PRN ×4 (08:52→19:53)
[2016-08-25] MEDS: PROMETHAZINE HCL 25 MG/ML INJ IVP PRN ×3 (08:55→21:21)
[2016-08-25] MEDS ORDERED: DILTIAZEM CD 120 MG CAP PO SCH ×2 (09:00→12:00)
[2016-08-25] MEDS ORDERED: DILTIAZEM CD 180 MG CAP PO SCH (10:00)
--- NOTE | 2016-08-25 14:48 | HOSPPROG ---
Hospitalist Progress Note Assessment/Plan: Assessment: 66-year-old female presents with acute nausea vomiting and diarrhea in the setting of acute opiate withdrawal Plan: 1. Nausea vomiting and diarrhea. Acute, suspect that there is at least some component of opiate withdrawal as well as possible viral gastroenteritis -neg stool panel -continue supportive care with antiemetics premedicating her before meals -encourage nutritional fluid such as Ensure, and live, smoothies -stop IVF -remains weak, engaging w/ PT/OT today to determine whether safe for home w/ home care vs. SNF 2. Hyponatremia. Acute on chronic, most likely secondary to a combination of hypovolemia as well as underlying SIADH -urine sodium level 98 indicating that patient reached euvolemic after receiving IV fluids -continue free water restriction and salt tab supplementation -repeat in AM 3. Hypokalemia. Secondary to GI losses and poor oral intake, level remains low despite oral supplementation this a.m. 4. Chronic pain with continuous opiate dependency. Patient previously on oxycodone immediate release 10-20 mg q.4 hours, patient no longer has an outside pain medication prescriber and her previous prescriber recommends that the patient be tapered off her medications and not provided any opiates at time of discharge -oxycodone immediate release has been reduced to 5 mg twice daily, continue at this dosage in consider taper tomorrow -continue Zanaflex in the setting of opiate withdrawal, uptitrated -introduced gabapentin 300mg HS 5. Acute cystitis. E coli, Macrobid sensitive, day 3 of 3 of antibiotics, discontinued 6. COPD. Chronic, no evidence of acute exacerbation 7. Scleroderma. Chronic, continue home medications 8. Hypertension. Chronic, dilt 120 9. Acute kidney injury. Most likely secondary to hypovolemia in the setting of poor oral intake as well as ongoing use of antihypertensive medications -resolved, repeat in AM, monitor UOP 10. Hypotension. Acute, most likely secondary to a combination of hypovolemia as well as ongoing use of diltiazem -resolved Diet. Encourage regular diet with supplements Code. Full Prophylaxis. Risk patient, heparin subcu Disposition. Anticipated discharge 08/26, pending stabilization of above. Subjective: Patient reports that her spasms have worsened since the Zanaflex was reduced her urine output has increased since IV fluids last night Objective: Vital Signs Temp Pulse Resp BP Pulse Ox 36.6 C 66 20 125/62 H 97 08/25/16 11:52 08/25/16 11:52 08/25/16 11:52 08/25/16 11:52 08/25/16 11:52 Microbiology 08/24/16 18:20 Gastrointestinal Tract Panel (PCR) - Final Stool No Organisms Detected Laboratory Results 08/25/16 05:00 08/25/16 05:00 08/24/16 08/25/16 08/26/16 05:59 05:59 05:59 Intake Total 980 2490 1475 Output Total 1400 1100 800 Balance -420 1390 675 - Time Spent With Patient Time Spent with Patient: greater than 35 minutes Time Spent with Patient: Greater than 35 minutes spent on this patients care, greater than 50% of time spent counseling, educating, and coordinating care regarding the above mentioned plan. - Pending Discharge Pending Discharge Within 24 Hours: Yes Pending Discharge Date: 08/26/16 Pending Discharge Time: 11:00 - Physical Exam Constitutional: no apparent distress, not in pain, chronically ill appearing, uncomfortable Cardiovascular: regular rate and rhythym, no murmur, rub, or gallop, No edema Respiratory: no respiratory distress, no rales or rhonchi, clear to auscultation Gastrointestinal: normoactive bowel sounds, soft, non-tender abdomen, no palpable masses Neurologic: AAOx3, other (Intermittent myoclonic jerks) Psychiatric: interacting appropriately, not anxious, not encephalopathic, thought process linear ICD10 Worksheet Patient Problems: Problems Problem Status Diagnosed Colon adenocarcinoma Acute Hyponatremia syndrome Acute
[2016-08-25] MEDS ORDERED: NS 500 ML IV ONE (16:06)
[2016-08-25] MEDS: CHOLECALCIFEROL VIT D3 1,000 UNITS TAB PO SCH (17:05)
[2016-08-25] MEDS: PRAVASTATIN SODIUM 20 MG TAB PO SCH (19:53)
[2016-08-25] MEDS: ONDANSETRON DISINTEGRATING 4 MG TAB PO PRN (20:21)
[2016-08-25] MEDS ORDERED: GABAPENTIN 300 MG CAP PO SCH (21:00)
[2016-08-25] MEDS: Eszopiclone [Lunesta] 2 MG PO SCH (22:21)
[2016-08-25] MEDS: PROMETHAZINE HCL 25 MG TAB PO PRN (22:26)
[2016-08-25] MEDS ORDERED: hydrALAZINE 20 MG/ML VIAL IVP PRN (23:42)
[2016-08-26] MEDS ORDERED: diphenhydrAMINE 25 MG CAP PO ONE (00:12)
[2016-08-26] MEDS ORDERED: MAGNESIUM OXIDE 400 MG TAB PO ONE (00:13)
[2016-08-26] MEDS: tiZANidine HCL 2 MG TAB PO PRN ×2 (02:45→11:32)
[2016-08-26] MEDS: ONDANSETRON DISINTEGRATING 4 MG TAB PO PRN (02:45)
[2016-08-26 05:27] LABS: % IMMATURE GRANULYOCYTES 0.3 % (0.0-1.1); ABSOLUTE IMMATURE GRANULOCYTES 0.04 10^3/uL (0.00-0.10); ADD DIFF? NO; ADD MORPH? NO; ADD SCAN? NO; ATYPICAL LYMPHOCYTE FLAG 10 (0-99); FRAGMENT RBC FLAG 0 (0-99); LEFT SHIFT FLG 0 (0-99); LIPEMIA HEMOLYSIS FLAG 90 (0-99); MEAN CELL HEMOGLOBIN 28.2 pg (27.9-34.1); MEAN CELL VOLUME 80.6 fL (81.5-99.8); MEAN PLATELET VOLUME 9.4 fL (8.7-11.7); PLATELET CLUMPS FLAG 0 (0-99); PLATELET COUNT 513 10^3/uL (150-400); RED BLOOD CELL COUNT 4.96 10^6/uL (4.18-5.33); RED CELL DISTRIBUTION WIDTH 16.7 % (11.5-15.2)
[2016-08-26 05:43] LABS: ANION GAP 12 mEq/L (8-16); CALCIUM 9.8 mg/dL (8.5-10.4); CARBON DIOXIDE 21 mEq/l (22-31); CHLORIDE 93 mEq/L (97-110); CREATININE 0.4 mg/dL (0.6-1.0); GLOMERULAR FILTRATION RATE > 60; GLUCOSE 106 mg/dL (70-100); MAGNESIUM 1.6 mg/dL (1.6-2.3); POTASSIUM 3.9 mEq/L (3.5-5.2); SODIUM 126 mEq/L (134-144)
[2016-08-26] MEDS: ACETAMINOPHEN 325 MG TAB PO PRN ×2 (05:46→15:37)
[2016-08-26] MEDS ORDERED: PROTOCOL MAGNESIUM 1 DOSE IV PRN (06:05)
[2016-08-26] MEDS ORDERED: MAGNESIUM SULF 1 GM/DEXTROSE 100 ML IV ONE (07:46)
[2016-08-26] MEDS: oxyCODONE IR 5 MG TAB PO SCH ×2 (08:49→20:05)
[2016-08-26] MEDS: SODIUM CHLORIDE 1,000 MG TAB PO SCH ×3 (08:49→18:24)
[2016-08-26] MEDS: CLOPIDOGREL BISULFATE 75 MG TAB PO SCH (08:49)
[2016-08-26] MEDS: OSELTAMIVIR PHOSPHATE 75 MG CAP PO SCH (08:50)
[2016-08-26] MEDS: FLUoxetine 20 MG CAP PO SCH (08:50)
[2016-08-26] MEDS: PANTOPRAZOLE SODIUM 40 MG TAB PO SCH (08:50)
[2016-08-26] MEDS: ENOXAPARIN 40 MG/0.4 ML SYR SC SCH (08:51)
[2016-08-26] MEDS ORDERED: DILTIAZEM CD 120 MG CAP PO SCH (09:00)
[2016-08-26] MEDS: PROMETHAZINE HCL 25 MG TAB PO PRN (09:02)
[2016-08-26] MEDS: LAMOTRIGINE 300 MG PO SCH ×2 (09:04→11:36)
[2016-08-26] MEDS ORDERED: IBUPROFEN 600 MG TAB PO PRN ×2 (09:36→10:15)
[2016-08-26] MEDS ORDERED: MAGNESIUM SULF 1 GM/DEXTROSE 100 ML BAG IV ONE (11:27)
[2016-08-26] MEDS: GABAPENTIN 300 MG CAP PO SCH ×2 (11:32→20:13)
[2016-08-26 12:11] LABS: COLOR YELLOW; LEUKOCYTE ESTERASE,URINE NEGATIVE (NEGATIVE); NITRITE,URINE NEGATIVE (NEGATIVE)
--- NOTE | 2016-08-26 14:38 | HOSPPROG ---
Hospitalist Progress Note Assessment/Plan: Assessment: 66-year-old female presents with acute nausea vomiting and diarrhea in the setting of acute opiate withdrawal Plan: 1. Nausea vomiting and diarrhea. Acute, suspect that there is at least some component of opiate withdrawal as well as possible viral gastroenteritis -neg stool panel -continue supportive care with antiemetics premedicating her before meals -encourage nutritional fluid such as Ensure, enlive, smoothies -stopped IVF -remains weak, engaging w/ PT/OT today to determine whether safe for home w/ home care vs. SNF 2. Hyponatremia. Acute on chronic, most likely secondary to a combination of hypovolemia as well as underlying SIADH -urine sodium level 98 indicating that patient reached euvolemic after receiving IV fluids -continue free water restriction and salt tab supplementation -repeat in AM 3. Hypokalemia. Secondary to GI losses and poor oral intake, resolved 4. Chronic pain with continuous opiate dependency. Patient previously on oxycodone immediate release 10-20 mg q.4 hours, patient no longer has an outside pain medication prescriber and her previous prescriber recommends that the patient be tapered off her medications and not provided any opiates at time of discharge -oxycodone immediate release has been reduced to 5 mg twice daily, continue at this dosage -continue Zanaflex in the setting of opiate withdrawal, uptitrated -introduced gabapentin 300mg HS, up titrated to twice daily given ongoing myoclonus 5. Acute cystitis. E coli, Macrobid sensitive, status post 3 days of antibiotics, discontinue 6. COPD. Chronic, no evidence of acute exacerbation 7. Scleroderma. Chronic, continue home medications 8. Hypertension. Chronic, discontinue diltiazem given complicating hypotension 9. Acute kidney injury. Most likely secondary to hypovolemia in the setting of poor oral intake as well as ongoing use of antihypertensive medications -resolved, repeat in AM, monitor UOP 10. Hypotension. Acute, most likely secondary to a combination of hypovolemia as well as ongoing use of diltiazem -resolved Diet. Encourage regular diet with supplements Code. Full Prophylaxis. Risk patient, heparin subcu Disposition. Anticipated discharge 08/27, pending safe lower level of care obtained, suspect patient will require intermediate facility given her significant deconditioning which she has experienced during this episode of care. Subjective: Patient reports worsening myoclonus, improved Zanaflex Objective: Vital Signs Temp Pulse Resp BP Pulse Ox 36.4 C 64 18 90/48 L 97 08/26/16 12:00 08/26/16 12:00 08/26/16 12:00 08/26/16 12:00 08/26/16 12:00 Laboratory Results 08/26/16 05:10 08/26/16 05:10 08/25/16 08/26/16 08/27/16 05:59 05:59 05:59 Intake Total 2490 2325 Output Total 1100 2300 300 Balance 1390 25 -300 - Pending Discharge Pending Discharge Within 24 Hours: Yes Pending Discharge Date: 08/27/16 Pending Discharge Time: 11:00 - Physical Exam Constitutional: no apparent distress, not in pain, chronically ill appearing, uncomfortable Cardiovascular: regular rate and rhythym, no murmur, rub, or gallop, No irregularly irregular, No edema Respiratory: no respiratory distress, no rales or rhonchi, clear to auscultation Gastrointestinal: normoactive bowel sounds, soft, non-tender abdomen, no palpable masses Neurologic: AAOx3, other (Intermittent myoclonic jerking) Psychiatric: interacting appropriately, not encephalopathic, thought process linear, anxious, No agitated ICD10 Worksheet Patient Problems: Problems Problem Status Diagnosed Colon adenocarcinoma Acute Hyponatremia syndrome Acute
[2016-08-26] MEDS: CHOLECALCIFEROL VIT D3 1,000 UNITS TAB PO SCH (18:23)
[2016-08-26] MEDS: PRAVASTATIN SODIUM 20 MG TAB PO SCH (20:05)
[2016-08-26] MEDS ORDERED: NS 1,000 ML IV ONE (21:13)
[2016-08-26] MEDS: Eszopiclone [Lunesta] 2 MG PO SCH (22:09)
[2016-08-27 00:52] LABS: ANION GAP 8 mEq/L (8-16); CALCIUM 7.6 mg/dL (8.5-10.4); CARBON DIOXIDE 19 mEq/l (22-31); CHLORIDE 100 mEq/L (97-110); CREATININE 0.6 mg/dL (0.6-1.0); GLOMERULAR FILTRATION RATE > 60; GLUCOSE 75 mg/dL (70-100); POTASSIUM 4.4 mEq/L (3.5-5.2); SODIUM 127 mEq/L (134-144)
[2016-08-27 01:03] LABS: SPECIMEN HEMOLYSIS 217
[2016-08-27] MEDS: ACETAMINOPHEN 325 MG TAB PO PRN ×2 (03:32→15:54)
[2016-08-27] MEDS: PROMETHAZINE HCL 25 MG TAB PO PRN (03:32)
[2016-08-27 05:47] LABS: ANION GAP 7 mEq/L (8-16); CALCIUM 8.8 mg/dL (8.5-10.4); CARBON DIOXIDE 23 mEq/l (22-31); CHLORIDE 98 mEq/L (97-110); CREATININE 0.6 mg/dL (0.6-1.0); GLOMERULAR FILTRATION RATE > 60; GLUCOSE 93 mg/dL (70-100); POTASSIUM 3.7 mEq/L (3.5-5.2); SODIUM 128 mEq/L (134-144)
[2016-08-27] MEDS: GABAPENTIN 300 MG CAP PO SCH (08:02)
[2016-08-27 09:24] LABS: % IMMATURE GRANULYOCYTES 0.2 % (0.0-1.1); ABSOLUTE IMMATURE GRANULOCYTES 0.02 10^3/uL (0.00-0.10); ADD DIFF? NO; ADD MORPH? NO; ADD SCAN? NO; ATYPICAL LYMPHOCYTE FLAG 20 (0-99); FRAGMENT RBC FLAG 20 (0-99); HEMATOCRIT 35.7 % (38.0-47.0); HEMOGLOBIN 12.1 g/dL (12.6-16.3); LEFT SHIFT FLG 0 (0-99); LIPEMIA HEMOLYSIS FLAG 90 (0-99); MEAN CELL HEMOGLOBIN 28.2 pg (27.9-34.1); MEAN CELL HEMOGLOBIN CONCENTR. 33.9 g/dL (32.4-36.7); MEAN CELL VOLUME 83.2 fL (81.5-99.8); PLATELET CLUMPS FLAG 0 (0-99); PLATELET COUNT 385 10^3/uL (150-400); RED BLOOD CELL COUNT 4.29 10^6/uL (4.18-5.33); RED CELL DISTRIBUTION WIDTH 17.3 % (11.5-15.2)
--- NOTE | 2016-08-27 09:45 | PDIAF ---
- Diagnosis Diagnosis: Opiate/Benzo withdraw, deconditioning, Chronic Hyponatremia Code Status: Full Code - Medication Management Discharge Medications: Medications to Continue on Transfer Clopidogrel Bisulfate [Plavix (*)] 75 mg PO DAILY #14 tab 04/16/14 [Last Taken 08/21/16] Acetaminophen [Tylenol 325mg (*)] 650 mg PO Q4H PRN 06/21/16 [Last Taken Unknown ] Cholecalciferol Vit D3 [Vitamin D3 (*)] 2,000 units PO DAILY18 06/21/16 [Last Taken 08/21/16] Eszopiclone [Lunesta] 2 mg PO HS 06/21/16 [Last Taken 08/21/16] FLUoxetine [Prozac 20 MG (*)] 40 mg PO DAILY 06/21/16 [Last Taken 08/21/16] Pantoprazole Sodium 20 mg PO HS 06/21/16 [Last Taken 08/21/16] Simvastatin [Zocor 10 mg] 10 mg PO HS 06/21/16 [Last Taken 08/21/16] lamOTRIGine [Lamotrigine ER] 300 mg PO DAILY 06/21/16 [Last Taken 08/21/16] Levothyroxine [Synthroid 75 mcg (*)] 75 mcg PO TH 08/22/16 [Last Taken 08/15/16] Gabapentin [Neurontin 300 MG (*)] 100 mg PO HS cap 08/27/16 [Last Taken Unknown ] Ibuprofen [Motrin (*)] 600 mg PO Q6H PRN #0 tab 08/27/16 [Last Taken Unknown] Magnesium Oxide [Magnesium] 400 mg PO DAILY #30 tablet 08/27/16 [Last Taken Unknown] Ondansetron Odt [Zofran Odt 4 mg (*)] 4 - 8 mg PO Q4HRS PRN #0 tab 08/27/16 [ Last Taken Unknown] Promethazine HCl [Phenergan 25mg (*)] 12.5 - 25 mg PO Q6HRS PRN #0 tab 08/27/16 [Last Taken Unknown] Sodium Chloride [Salt Tablet] 1,000 mg PO TIDMEAL tab 08/27/16 [Last Taken Unknown] clonazePAM [Klonopin (*)] 0.5 mg PO BID tab 08/27/16 [Last Taken Unknown] oxyCODONE IR [Oxycodone Ir (*)] 5 mg PO BID tab 08/27/16 [Last Taken Unknown] tiZANidine HCL [Zanaflex] 2 - 4 mg PO TID PRN #0 tab 08/27/16 [Last Taken Unknown] Halfway Antibiotics: NA Discharge Medications: Refer to the Discharge Home Medication list for PRN reason. PICC Care - Routine: N/A - Orders Services needed: Registered Nurse, Master Operations Scheduler, Physical Therapy, Occupational Therapy Diet Recommendation: fluid restriction (use comment for amount) (1.5L/day) Weigh Patient: weekly Zaman: Not applicable Equipment: walker Additional: if patient is able to be scheduled for outpatient follow-up appointment with Dr. Mcfadden for pain management, please arrange - Labs/Radiology BMP Date: 08/28/16 Call or Fax Lab and Imaging Results to: Dr. Velazquez and Dr. Mcfadden - Follow Up Care Current Providers and Referrals: [place] STATE,. [Primary Care Provider] - As per Instructions Fernanda Mcfadden MD [Medical Doctor] - 3 days of d/c SNF/Rehab Naomy Velazquez MD [Medical Doctor] - 08/28/16 (as scheduled) Ilene Dubon MD [Medical Doctor] - 09/02/16 (please call office to schedule)
[2016-08-27] MEDS: SODIUM CHLORIDE 1,000 MG TAB PO SCH ×2 (09:57→14:16)
[2016-08-27] MEDS: ENOXAPARIN 40 MG/0.4 ML SYR SC SCH (09:58)
[2016-08-27] MEDS: CLOPIDOGREL BISULFATE 75 MG TAB PO SCH (09:58)
[2016-08-27] MEDS: FLUoxetine 20 MG CAP PO SCH (09:59)
[2016-08-27] MEDS ORDERED: clonazePAM 0.5 MG TAB PO SCH (10:00)
[2016-08-27] MEDS: oxyCODONE IR 5 MG TAB PO SCH (10:00)
[2016-08-27] MEDS: LAMOTRIGINE 300 MG PO SCH (10:01)
[2016-08-27] MEDS: PANTOPRAZOLE SODIUM 40 MG TAB PO SCH (10:02)
[2016-08-27] MEDS: OSELTAMIVIR PHOSPHATE 75 MG CAP PO SCH (10:02)
--- NOTE | 2016-08-27 10:04 | PDDCSUM ---
Discharge Summary Discharge Summary: DISCHARGE SUMMARY FOLLOW-UP ITEMS: Repeat serum sodium level tomorrow and follow up at Dr. Velazquez office Continue to wean oxycodone and clonazepam as an outpatient over the next several weeks DATE OF ADMISSION: 08/22/2016 DATE OF DISCHARGE: 08/27/2016 DISCHARGE DIAGNOSES: 1. Acute opiate and benzodiazepine withdrawal 2. Acute nausea vomiting diarrhea 3. Acute on chronic hyponatremia 4. Acute hypokalemia 5. Chronic pain with continuous opiate and benzodiazepine dependency 6. Acute cystitis 7. COPD without exacerbation 8. Acute kidney injury 9. Acute hypotension CONSULTATIONS: None PROCEDURES / IMAGING: None CHIEF COMPLAINT: Acute nausea vomiting diarrhea SUBJECTIVE: Patient's diarrhea has resolved, she has has ongoing myoclonic jerks, cognition is normal PHYSICAL EXAM ON DISCHARGE: Systolic blood pressure is 115, heart rate is 70, afebrile overnight, satting well on room air, intermittent myoclonic jerks, alert awake oriented x3, not encephalopathic, but no lower extremity edema LABS ON DISCHARGE: Serum sodium of 128, potassium 3.7, creatinine 0.6 HOSPITAL COURSE BY PROBLEM: 1. Acute opiate and benzodiazepine withdrawal. Patient presented with gastrointestinal symptoms as well as myoclonic jerks and generalized weakness in the setting of acute opiate and benzodiazepine withdrawal. The reason the patient was withdrawing was that her pain management provider recently. Prescribing her Valium and oxycodone. The patient has been taking both of these medications for quite some time. The patient was initiated on low-dose oxycodone and clonazepam with as needed tizanidine. Patient's GI symptoms have significantly improved and her her myoclonic jerks persisted at a lower level and have not of altered to seizures. 2. Chronic pain with continuous opiate and benzodiazepine dependency. The patient will continue to require pain management as well as anxiety management in the outpatient setting. Her previous prescribing provider is no longer involved in her care. The patient has been placed on a strict regimen of oxycodone immediate release 5 mg twice daily as well as clonazepam 0.5 mg twice daily. These dosages should prevent her withdrawal symptoms from worsening and should reduce her risk of a seizure as well as withdrawal complications. The patient will require a slow taper of these medications over the next several weeks and this should be conducted by her primary care provider, the patient should follow up on a very basis at least once weekly. We will also need her on low-dose in 100 mg at bedtime at as both an anti-epileptic and neuropathic pain relieving agent. As mentioned above she will continue as needed to in and this should be tapered possible to reduce risk of additional dependency. 3. Acute nausea vomiting diarrhea. Most likely secondary to withdrawal symptoms outlined above as well as possible gastroenteritis precipitating this will presentation. Her abdominal symptoms have resolved at time of discharge. 4. Acute on chronic hyponatremia. Most likely secondary to a combination of hypovolemia as well as underlying, known, SIADH. Urine sodium level is 98 s/p receiving IVF, indicating she is at a euvolemic state. She will continue on a free water restriction and sodium tabs. Her sodium level has stabilized and she will be seen in clinic tomorrow by Dr. Velazquez. 5. Acute Hypokalemia. 2/2 GI losses and poor oral intake, received K/Mg supplementation and will be discharged w/ oral Magnesium per patient request. 6. Acute cystitis. E coli, s/p 3 days of macrobid. 7. Chronic hypertension. Discontinued diltiazem given her intermittent hypotension. 8. COPD. Chronic, no e/o exacerbation. 9. EDDIE. 2/2 hypovolemia in setting of poor oral intake, s/p IVF, stabilized. 10. Acute Hypotension. Most likely 2/2 combination of hypovolemia w/ poor oral intake and concomitant use of diltiazem. Dilt has been discontinued and SBP 100- 120s. DISCHARGE MEDICATIONS: Please see official discharge medication reconciliation sheet in chart discontinued diltiazem, initiated salt tabs, initiated clonazepam 0.5 mg twice daily, addition of oxycodone 5 mg immediate release twice daily, up titrated to Dorothy in to 2-4 mg as needed 3 times daily, discontinued Valium, discontinued high-dose oxycodone immediate release. DISCHARGE INSTRUCTIONS: Please follow up with primary care provider immediately after leaving rehab, follow up with Dr. Velazquez tomorrow as scheduled, follow up with Dr. Dubon next Friday. TIME SPENT: Greater than 30 minutes were spent on direct patient care, as well as discharge planning and preparation.
[2016-08-27 11:24] VITALS: BP 105/55; O2SAT 96
[2016-08-27 15:34] VITALS: PULSE 88; RESP 19; TEMP 98.1
[2016-08-27] MEDS: ONDANSETRON DISINTEGRATING 4 MG TAB PO PRN (15:55)
[2016-08-27] MEDS ORDERED: GABAPENTIN 300 MG CAP PO SCH (21:00)
[2016-08-27] MEDS ORDERED: GABAPENTIN 100 MG CAP PO SCH (21:00)
[2016-08-29] MEDS ORDERED: LEVOTHYROXINE 75 MCG TAB PO SCH (11:12)
== END 2016-08-27 17:20 | DRG 897 ==
LOC: EDUNIT# → OBSVTOIN 06:30 → F3E 12:15
PROVIDERS: ADMIT Hospitalist; ATTEND Internal Medicine
DX: F11.23 Opioid dependence with withdrawal (principal); R11.2 Nausea with vomiting, unspecified; R19.7 Diarrhea, unspecified; E86.9 Volume depletion, unspecified; G25.3 Myoclonus; E87.1 Hypo-osmolality and hyponatremia; E22.2 Syndrome of inappropriate secretion of antidiuretic hormone; E87.6 Hypokalemia; I95.2 Hypotension due to drugs; T46.1X5A Adverse effect of calcium-channel blockers, initial encounter; N30.00 Acute cystitis without hematuria; B96.20 Unspecified Escherichia coli [E. coli] as the cause of diseases classified elsewhere; N17.9 Acute kidney failure, unspecified; M54.89 Other dorsalgia; G89.29 Other chronic pain; M34.1 CR(E)ST syndrome; J44.9 Chronic obstructive pulmonary disease, unspecified; F17.210 Nicotine dependence, cigarettes, uncomplicated; I65.23 Occlusion and stenosis of bilateral carotid arteries; I25.10 Atherosclerotic heart disease of native coronary artery without angina pectoris; M81.0 Age-related osteoporosis without current pathological fracture; F31.9 Bipolar disorder, unspecified; E03.9 Hypothyroidism, unspecified; Z86.59 Personal history of other mental and behavioral disorders; Z85.038 Personal history of other malignant neoplasm of large intestine; Z90.49 Acquired absence of other specified parts of digestive tract
CPT/HCPCS: 96374; 97116-GP; 97162-GP; 97164-GP; 97165-GO; G8978-GP-CI; G8978-GP-CJ; G8978-GP-CK; G8979-GP-CI; G8980-GP-CI; G8987-GO-CI; G8988-GO-CI; J0360; J1650; J2405; J2550; J3475

== ENCOUNTER 2016-09-13 18:39 | Inpatient (IN) | payer OTHER ==
[2016-09-13] MEDS ORDERED: NS 500 ML IV ONE (19:01)
[2016-09-13 19:08] LABS: % IMMATURE GRANULYOCYTES 0.3 % (0.0-1.1); ABSOLUTE IMMATURE GRANULOCYTES 0.03 10^3/uL (0.00-0.10); ADD DIFF? NO; ADD MORPH? NO; ADD SCAN? NO; ATYPICAL LYMPHOCYTE FLAG 10 (0-99); FRAGMENT RBC FLAG 20 (0-99); HEMATOCRIT 31.4 % (38.0-47.0); HEMOGLOBIN 10.7 g/dL (12.6-16.3); LEFT SHIFT FLG 0 (0-99); LIPEMIA HEMOLYSIS FLAG 90 (0-99); MEAN CELL HEMOGLOBIN 28.3 pg (27.9-34.1); MEAN CELL HEMOGLOBIN CONCENTR. 34.1 g/dL (32.4-36.7); MEAN CELL VOLUME 83.1 fL (81.5-99.8); MEAN PLATELET VOLUME 9.9 fL (8.7-11.7); PLATELET CLUMPS FLAG 10 (0-99); PLATELET COUNT 362 10^3/uL (150-400); RED BLOOD CELL COUNT 3.78 10^6/uL (4.18-5.33); RED CELL DISTRIBUTION WIDTH 18.6 % (11.5-15.2)
--- NOTE | 2016-09-13 19:08 | EDPHY ---
H & P Stated Complaint: Vomiting HPI/ROS: CHIEF COMPLAINT: Abdominal pain, "I think my hernia is incarcerate" HISTORY OF PRESENT ILLNESS: Has 2 week duration of increasing pain in her periumbilical hernia. This been present for 9 months and managed by surgeon Dr. Marino. They have been monitoring this conservatively as it not caused any problems. Over the past 6 days she notes significant change in her pain that abruptly changes morning. She has also been vomiting since this morning. No constipation, fever or chills. She feels that the hernia stockings she cannot push it down as he lays she is to be able to. There is significant pain around it but no where else. No urinary complaints. No chest pain or shortness of breath. No cough. No headache or dizziness. No rash or lesions. No other associated complaints or modifying factors. PREVIOUS ABDOMINAL SURGERIES/DIAGNOSES: Periumbilical hernia NPO: greater than 24 hours REVIEW OF SYSTEMS: Ten systems reviewed and are negative unless otherwise noted in the HPI EXAMINATION: General Appearance: Alert, no distress Head: normocephalic, atraumatic Eyes: Pupils equal and round, no conjunctival pallor or injection ENT, Mouth: Mucous membranes moist. Uvula midline. No erythema or edema Neck: Normal inspection, supple, non-tender Respiratory: Lungs are clear to auscultation. No wheezing, rhonchi or crackles. Cardiovascular: Regular rate and rhythm . No murmur. Pulses intact distally Gastrointestinal: Abdomen is soft. There is periumbilical hernia that is large and soft. I can partially reduced but it returned with any Valsalva. It is significantly tender to palpation. There is no necrosis about it. I do hear bowel sounds in all taken. Bowel sounds are present in all 4 quadrants but there is moderate tympany and distention. Back: non-tender, no bony abnormalities Neurological: A&O, nonfocal, normal gait Skin: Warm and dry, no rash Extremities: Nontender, no pedal edema Psychiatric: Mood and affect normal DIFFERENTIAL DIAGNOSES: Including but not limited to Periumbilical hernia with incarceration versus strangulation, umbilical hernia, abdominal pain, bowel obstruction, enteritis, colitis MDM: 7:00 p.m. abdominal pain with large, periumbilical hernia that the patient has concern for incarceration. abdominal exam reveals a large hernia can be partially reduced. I do appreciate bowel sounds but is very tender to palpation. There is tympany but no rigidity. CT scan was immediately ordered but she is in no acute distress. 9:20 p.m. notified by radiologist Dr. Michelle of the CT findings of the abdomen and pelvis. She does have distention of the small bowel with obstruction evident, with a possible mechanical transition point near a previous anastomosis on the right side near the hepatic flexure. There may be some air in the bladder of uncertain etiology. No other acute findings. Colon is well appearing. There is no incarceration of the periumbilical hernia involving the transverse colon. At this time we will page her established general surgeon Dr. Marino 9:30 p.m. case discussed with Dr. Marino. She recommends admission to the hospital since she will advise consultation in the morning. After discussing the case together , we both agree that she does not need an NG tube at this time. I will contact the hospitalist for admission. 9:40 p.m. I discussed case with Dr. Bustos here in the emergency department. He will admit the patient and Dr. Marino will provide consultation. SUPERVISION: This patient was independently evaluated without the aide of supervising physician. Source: Patient Exam Limitations: No limitations - Personal History Current Tetanus/Diphtheria Vaccine: Yes Current Tetanus Diphtheria and Acellular Pertussis (TDAP): Yes Tetanus Vaccine Date: unsure - Medical/Surgical History Hx Asthma: No Hx Chronic Respiratory Disease: Yes Hx Diabetes: No Hx Cardiac Disease: Yes Hx Renal Disease: No Hx Cirrhosis: No Hx Alcoholism: No Hx HIV/AIDS: No Hx Splenectomy or Spleen Trauma: No Other PMH: pmh- cecal CA, scleroderma, sjogrens, raynauds, resp failure 2/2 COPD , Bipolar, SVT, severe deperssion, CAD, DM, 50-60% R internal carotid stenosis, 70-80% L internal carotid stenosis. psh- hemicolectomy, R hip ORIF, maikol, umbilical hernia - Social History Smoking Status: Light smoker Constitutional: Initial Vital Signs Temperature (C) 98.6 F 09/13/16 18:39 Heart Rate 98 09/13/16 18:39 Respiratory Rate 20 09/13/16 18:39 Blood Pressure 98/62 L 09/13/16 18:39 O2 Sat (%) 94 09/13/16 18:39 O2 Delivery Mode Nasal Cannula O2 (L/minute) 2 Allergies/Adverse Reactions: lorazepam [From Ativan] Allergy (Severe, Verified 08/16/16 22:13) fluconazole [From Diflucan] Allergy (Intermediate, Verified 08/16/16 22:13) Penicillins Allergy (Intermediate, Verified 08/16/16 22:13) Sulfa (Sulfonamide Antibiotics) Allergy (Intermediate, Verified 08/16/16 22:13) levofloxacin Allergy (Mild, Verified 09/14/16 00:07) Other-Enter Comments haloperidol [From Haldol] Allergy (Verified 08/16/16 22:13) haloperidol lactate [From Haldol] Allergy (Verified 08/16/16 22:13) Quinolones Allergy (Verified 08/16/16 22:13) zolpidem tartrate [From Ambien] Allergy (Verified 08/16/16 22:13) Other-Enter Comments Home Medications: Medication Instructions Recorded Clopidogrel Bisulfate [Plavix (*)] 75 mg PO DAILY #14 tab 04/16/14 Acetaminophen [Tylenol 325mg (*)] 650 mg PO Q4H PRN 06/21/16 Cholecalciferol Vit D3 [Vitamin D3 2,000 units PO DAILY18 06/21/16 (*)] Eszopiclone [Lunesta] 2 mg PO HS 06/21/16 FLUoxetine [Prozac 20 MG (*)] 40 mg PO DAILY 06/21/16 Pantoprazole Sodium 20 mg PO HS 06/21/16 Simvastatin [Zocor 10 mg] 10 mg PO DAILY18 06/21/16 Levothyroxine [Synthroid 75 mcg 75 mcg PO TH@06 08/22/16 (*)] Magnesium Oxide [Magnesium] 400 mg PO DAILY #30 tablet 08/27/16 Ondansetron Odt [Zofran Odt 4 mg 4 - 8 mg PO Q4HRS PRN #0 tab 08/27/16 (*)] Promethazine HCl [Phenergan 25mg 12.5 - 25 mg PO Q6HRS PRN #0 tab 08/27/16 (*)] Sodium Chloride [Salt Tablet] 1,000 mg PO TIDMEAL tab 08/27/16 clonazePAM [Klonopin (*)] 0.5 mg PO BID tab 08/27/16 tiZANidine HCL [Zanaflex] 2 - 4 mg PO TID PRN #0 tab 08/27/16 Diltiazem Cd [Cardizem ER 120 MG 120 mg PO DAILY 09/13/16 (*)] Gabapentin [Neurontin 100 MG (*)] 100 mg PO DAILY18 09/13/16 lamOTRIGine [Lamictal] 300 mg PO DAILY 09/13/16 oxyCODONE IR [Oxycodone Ir (*)] 5 mg PO BIDMEAL 09/13/16 Medical Decision Making - Data Points Laboratory Results: Laboratory Results 09/13/16 18:50 09/13/16 18:50 Medications Given: Discontinued Medications Sodium Chloride (Ns) 500 mls @ 0 mls/hr IV ONCE ONE PRN Reason: Wide Open Stop: 09/13/16 19:02 Last Admin: 09/13/16 19:31 Dose: 500 mls Levofloxacin (Levaquin) 500 mg PO DAILY AT 10AM ECHO PRN Reason: Protocol Stop: 09/14/16 00:02 Last Admin: 09/14/16 00:26 Dose: Not Given Tizanidine HCl (Zanaflex) 2 - 4 mg PO TID PRN PRN Reason: muscle spasms Stop: 03/13/17 01:45 Last Admin: 09/14/16 08:14 Dose: 4 mg Departure - Departure Disposition: [facility] Inpatient Acute Clinical Impression: Periumbilical hernia, Small bowel obstruction Abdominal pain Qualifiers: Abdominal location: periumbilical Qualified Code(s): R10.33 - Periumbilical pain Condition: Good
[2016-09-13 19:18] LABS: INR 1.04 (0.83-1.16); PROTIME(PATIENT) 13.5 SEC (12.0-15.0)
[2016-09-13 19:19] LABS: APTT 29.7 SEC (23.0-38.0)
[2016-09-13 19:35] LABS: ALANINE AMINOTRANSFERASE 31 IU/L (9-52); ALKALINE PHOSPHATASE 72 IU/L (38-126); ANION GAP 15 mEq/L (8-16); ASPARTATE AMINOTRANSFERASE 38 IU/L (14-46); BILIRUBIN-CONJUGATED 0.6 mg/dL (0.0-0.5); BILIRUBIN-UNCONJUGATED 0.4 mg/dL (0.0-1.1); CALCIUM 8.5 mg/dL (8.5-10.4); CARBON DIOXIDE 20 mEq/l (22-31); CHLORIDE 95 mEq/L (97-110); CREATININE 0.4 mg/dL (0.6-1.0); GLOMERULAR FILTRATION RATE > 60; GLUCOSE 80 mg/dL (70-100); POTASSIUM 4.1 mEq/L (3.5-5.2); SODIUM 130 mEq/L (134-144); SPECIMEN HEMOLYSIS 168; TOTAL PROTEIN 7.4 g/dL (6.3-8.2)
[2016-09-13] MEDS ORDERED: IOPAMIDOL (ISOVUE-300) 100 ML BTL IV ONE (19:56)
[2016-09-13 21:44] LABS: COLOR YELLOW; LEUKOCYTE ESTERASE,URINE 2+ (NEGATIVE); NITRITE,URINE NEGATIVE (NEGATIVE)
[2016-09-13 21:52] LABS: BACTERIA TRACE /hpf (NONE SEEN); MUCUS TRACE /lpf (NONE-1+); RBC,URINE 50-182 /hpf (0-3); WBC,URINE 50-182 /hpf (0-3)
[2016-09-13] MEDS ORDERED: ALBUTEROL 3 ML DEYVIAL IH PRN (22:42)
[2016-09-13] MEDS ORDERED: ONDANSETRON 4 MG/2 ML VIAL IVP PRN (22:42)
[2016-09-13] MEDS ORDERED: ONDANSETRON DISINTEGRATING 4 MG TAB PO PRN (22:42)
[2016-09-14] MEDS: NS 1,000 ML IV SCH
[2016-09-14] MEDS: NITROFURANTOIN MACROBID 100 MG CAP PO SCH ×3 (00:55→20:55)
[2016-09-14] MEDS: tiZANidine HCL 2 MG TAB PO PRN ×2 (02:23→08:14)
[2016-09-14] MEDS: oxyCODONE IR 5 MG TAB PO PRN ×2 (02:23→12:27)
--- NOTE | 2016-09-14 05:53 | PDGENHP ---
History and Physical - Chief Complaint nausea, vomiting diarrhea - History of Present Illness patient is a 66-year-old female with history of COPD, chronic pain syndrome on chronic opioid therapy, scleroderma, bipolar disorder, chronic hyponatremia and recent admission for acute opioid and benzo withdrawal manifested with GI symptoms who presents to the ED complaining of 3 days of nausea vomiting and diarrhea. Patient was discharged on 08/27 and has not had any change in medications since discharge. She states that about 6 days ago she began having cramping abdominal pain, associated with several episodes of diarrhea daily. Denies any melena or bloody stool. About 3 days ago she began developing nausea and vomiting, also noticed increased abdominal distention. on day of presentation patient reports having at least about 5 episodes of which she describes as bilious vomiting and abdominal pain. She denies any associated fever, chills, chest pain, shortness of breath, cough or dysuria. She was unable to maintain any p. o. intake today so she decided to come to the ED for further evaluation. She reported last BM was earlier in the day and no longer diarrhea. She continues to pass flatus. On arrival to the ED patient was afebrile, mildly hypertensive. Labs revealed mild leukocytosis, normal BMP and LFTs including lipase. She was give IVF resuscitation, with improvement in BP. CT abd/pelvis was then obtained and revealed evidence of mechanical small-bowel obstruction. Surgery was consulted by the ER physician, and given minimal symptoms in the ED NG tube was not placed. Patient was admitted to the hospital service for conservative management of SBO. History Information - Allergies/Home Medication List Allergies/Adverse Reactions: lorazepam [From Ativan] Allergy (Severe, Verified 08/16/16 22:13) fluconazole [From Diflucan] Allergy (Intermediate, Verified 08/16/16 22:13) Penicillins Allergy (Intermediate, Verified 08/16/16 22:13) Sulfa (Sulfonamide Antibiotics) Allergy (Intermediate, Verified 08/16/16 22:13) levofloxacin Allergy (Mild, Verified 09/14/16 00:07) Other-Enter Comments haloperidol [From Haldol] Allergy (Verified 08/16/16 22:13) haloperidol lactate [From Haldol] Allergy (Verified 08/16/16 22:13) Quinolones Allergy (Verified 08/16/16 22:13) zolpidem tartrate [From Ambien] Allergy (Verified 08/16/16 22:13) Other-Enter Comments Home Medications: Acetaminophen [Tylenol 325mg (*)] 650 mg PO Q4H PRN 06/21/16 [Last Taken 17:00] Cholecalciferol Vit D3 [Vitamin D3 (*)] 2,000 units PO DAILY18 06/21/16 [Last Taken 09/13/16] Eszopiclone [Lunesta] 2 mg PO HS 06/21/16 [Last Taken 09/12/16] FLUoxetine [Prozac 20 MG (*)] 40 mg PO DAILY 06/21/16 [Last Taken 09/13/16] Pantoprazole Sodium 20 mg PO HS 06/21/16 [Last Taken 09/13/16] Simvastatin [Zocor 10 mg] 10 mg PO DAILY18 06/21/16 [Last Taken 09/13/16] Levothyroxine [Synthroid 75 mcg (*)] 75 mcg PO TH@06 08/22/16 [Last Taken ] Diltiazem Cd [Cardizem ER 120 MG (*)] 120 mg PO DAILY 09/13/16 [Last Taken 09/13] Gabapentin [Neurontin 100 MG (*)] 100 mg PO DAILY18 09/13/16 [Last Taken ] lamOTRIGine [Lamictal] 300 mg PO DAILY 09/13/16 [Last Taken 09/13/16] oxyCODONE IR [Oxycodone Ir (*)] 5 mg PO BIDMEAL 09/13/16 [Last Taken 09/13/16] I have personally reviewed and updated: family history, medical history, social history, surgical history - Past Medical History COPD Additional medical history: scleroderma, CREST, fibromyalgia, h/o alcohol abuse , CAD, osteoporosis, hypothyroidism, bipolar disorder, colon cancer - Surgical History Reports: cholecystectomy Additional surgical history: partial colectomy. appendectomy - Family History Positive for: non-pertinent - Social History Smoking Status: Light smoker (e-cigarettes) Alcohol Use: None Drug Use: None Additional social history: Patient lives in assisted living facility Review of Systems ROS: 10pt was reviewed & negative except for what was stated in HPI & below Physical Exam Temp Pulse Resp BP Pulse Ox 36.5 C 101 H 16 126/64 H 93 02/18/17 04:46 09/14/16 04:46 09/14/16 04:46 09/14/16 04:46 09/14/16 04:46 Constitutional: no apparent distress, appears nourished, not in pain Eyes: PERRL, anicteric sclera, EOMI Ears, Nose, Mouth, Throat: moist mucous membranes, hearing normal, ears appear normal, no oral mucosal ulcers Cardiovascular: regular rate and rhythym, no murmur, rub, or gallop, pulses symmetric bilaterally, No JVD, No edema Peripheral Pulses: 2+: dorsalis-pedis (R), dorsalis-pedis (L) Respiratory: no respiratory distress, no rales or rhonchi, clear to auscultation Gastrointestinal: soft, non-tender abdomen, no palpable masses, distension ( mild), other (large reducible ventral hernia, nontender), No hepatosplenomegally , No guarding, No rebound Genitourinary: no bladder fullness, no bladder tenderness Skin: warm, normal color, no rashes or abrasions, no fluctuance, no induration, No mottled Musculoskeletal: full muscle strength, no muscle tenderness, normal joint ROM, no joint effusions Neurologic: AAOx3, sensation intact bilaterally, CN II-XII Intact, No weakness, No numbness Psychiatric: interacting appropriately, not anxious, not encephalopathic, thought process linear Lab Data & Imaging Review 09/13/16 18:50 09/13/16 18:50 WBC 11.15 10^3/uL (3.80-9.50) H 09/13/16 18:50 RBC 3.78 10^6/uL (4.18-5.33) L 09/13/16 18:50 Hgb 10.7 g/dL (12.6-16.3) L 09/13/16 18:50 Hct 31.4 % (38.0-47.0) L 09/13/16 18:50 MCV 83.1 fL (81.5-99.8) 09/13/16 18:50 MCH 28.3 pg (27.9-34.1) 09/13/16 18:50 MCHC 34.1 g/dL (32.4-36.7) 09/13/16 18:50 RDW 18.6 % (11.5-15.2) H 09/13/16 18:50 Plt Count 362 10^3/uL (150-400) 09/13/16 18:50 MPV 9.9 fL (8.7-11.7) 09/13/16 18:50 Neut % (Auto) 74.5 % (39.3-74.2) H 09/13/16 18:50 Lymph % (Auto) 15.9 % (15.0-45.0) 09/13/16 18:50 Casey % (Auto) 7.6 % (4.5-13.0) 09/13/16 18:50 Eos % (Auto) 1.3 % (0.6-7.6) 09/13/16 18:50 Baso % (Auto) 0.4 % (0.3-1.7) 09/13/16 18:50 Nucleat RBC Rel Count 0.0 % (0.0-0.2) 09/13/16 18:50 Absolute Neuts (auto) 8.31 10^3/uL (1.70-6.50) H 09/13/16 18:50 Absolute Lymphs (auto) 1.77 10^3/uL (1.00-3.00) 09/13/16 18:50 Absolute Monos (auto) 0.85 10^3/uL (0.30-0.80) H 09/13/16 18:50 Absolute Eos (auto) 0.15 10^3/uL (0.03-0.40) 09/13/16 18:50 Absolute Basos (auto) 0.04 10^3/uL (0.02-0.10) 09/13/16 18:50 Absolute Nucleated RBC 0.00 10^3/uL (0-0.01) 09/13/16 18:50 Immature Gran % 0.3 % (0.0-1.1) 09/13/16 18:50 Immature Gran # 0.03 10^3/uL (0.00-0.10) 09/13/16 18:50 PT 13.5 SEC (12.0-15.0) 09/13/16 18:50 INR 1.04 (0.83-1.16) 09/13/16 18:50 APTT 29.7 SEC (23.0-38.0) 09/13/16 18:50 VBG Lactic Acid 1.0 mmol/L (0.7-2.1) 09/13/16 18:50 Sodium 130 mEq/L (134-144) L 09/13/16 18:50 Potassium 4.1 mEq/L (3.5-5.2) 09/13/16 18:50 Chloride 95 mEq/L (97-110) L 09/13/16 18:50 Carbon Dioxide 20 mEq/l (22-31) L 09/13/16 18:50 Anion Gap 15 mEq/L (8-16) 09/13/16 18:50 BUN 11 mg/dL (7-23) 09/13/16 18:50 Creatinine 0.4 mg/dL (0.6-1.0) L 09/13/16 18:50 Estimated GFR > 60 09/13/16 18:50 Glucose 80 mg/dL (70-100) 09/13/16 18:50 Calcium 8.5 mg/dL (8.5-10.4) 09/13/16 18:50 Total Bilirubin 1.0 mg/dL (0.1-1.4) 09/13/16 18:50 Conjugated Bilirubin 0.6 mg/dL (0.0-0.5) H 09/13/16 18:50 Unconjugated Bilirubin 0.4 mg/dL (0.0-1.1) 09/13/16 18:50 AST 38 IU/L (14-46) 09/13/16 18:50 ALT 31 IU/L (9-52) 09/13/16 18:50 Alkaline Phosphatase 72 IU/L (38-126) 09/13/16 18:50 Total Protein 7.4 g/dL (6.3-8.2) 09/13/16 18:50 Albumin 4.0 g/dL (3.5-5.0) 09/13/16 18:50 Lipase 22.0 IU/L (23-300) L 09/13/16 18:50 Specimen Hemolysis 168 09/13/16 18:50 Urine Color YELLOW 09/13/16 21:30 Urine Appearance HAZY 09/13/16 21:30 Urine pH 5.0 (5.0-7.5) 09/13/16 21:30 Ur Specific [place] 1.026 (1.002-1.030) 09/13/16 21:30 Urine Protein NEGATIVE (NEGATIVE) 09/13/16 21:30 Urine Ketones TRACE (NEGATIVE) H 09/13/16 21:30 Urine Blood 3+ (NEGATIVE) H 09/13/16 21:30 Urine Nitrate NEGATIVE (NEGATIVE) 09/13/16 21:30 Urine Bilirubin NEGATIVE (NEGATIVE) 09/13/16 21:30 Urine Urobilinogen NEGATIVE EU (0.2-1.0) 09/13/16 21:30 Ur Leukocyte Esterase 2+ (NEGATIVE) H 09/13/16 21:30 Urine RBC 50-182 /hpf (0-3) H 09/13/16 21:30 Urine WBC 50-182 /hpf (0-3) H 09/13/16 21:30 Ur Epithelial Cells TRACE /lpf (NONE-1+) 09/13/16 21:30 Urine Bacteria TRACE /hpf (NONE SEEN) H 09/13/16 21:30 Urine Mucus TRACE /lpf (NONE-1+) 09/13/16 21:30 Ur Culture Indicated? INDICATED (NI) H 09/13/16 21:30 Urine Glucose NEGATIVE (NEGATIVE) 09/13/16 21:30 Visualized and Interpreted imaging results: Yes Interpretation: CT abd/pelvis: Mechanical small bowel obstruction, Ventral abdominal hernia, without strangulatio; evidence of cystitis Assessment & Plan Assessment: patient is a 66-year-old female with COPD, scleroderma, the bipolar disorder, chronic pain syndrome with degenerative disc disease and osteoporosis of the spine on chronic opioid therapy presents to the ED with 1 week of abdominal pain , nausea vomiting and diarrhea. CT abdomen pelvis reveals small bowel obstruction. Plan: # acute small bowel obstruction Patient continues to pass BM and flatus and on my evaluation states nausea/ vomiting had significantly improved. Imaging reveals evidence of mechanical SBO. Surgery was contacted by ED, given minimal symptoms, recommended conservative management. Will maintain NPO overnight, give IVF hydration and symptomatic treatment of nausea and pain. # nausea, vomiting, diarrhea N/v likely related to acute SBO, but infectious etiology also a possibility, likely viral. Patient with mild leukocytosis, afebrile and without evidence of SIRS/sepsis. Reports diarrhea has resolved and nausea/vomiting improving. Will cont to monitor, if recurrent diarrhea, will check stool studies. # positive UA Patient was recently treated for acute cystitis with macrobid in previous admission. Today's admission UA is grossly positive, but patient denies any significant symptoms. CT reveals evidence of cystitis, so will treat again with macrobid. No evidence of pyelonephritis on imaging. f/u today's urine culture. # COPD Resp status stable, without wheezing on exam. Will provide nebs and supplemental O2 prn. # chronic pain, osteoporosis, degenerative disc disease Patient reports pain is at baseline, will continue home oxycodone, Valium and tizanidine prn. # hypothyroidism Cont home synthroid. # bipolar disorder. Stable mood, cont home med. # dispo: admit to inpt service for > 2 [place] stay for acute SBO # gen: NPO DVT ppx: lovenox DNR
[2016-09-14 06:39] LABS: % IMMATURE GRANULYOCYTES 0.3 % (0.0-1.1); ABSOLUTE IMMATURE GRANULOCYTES 0.03 10^3/uL (0.00-0.10); ADD DIFF? NO; ADD MORPH? NO; ADD SCAN? NO; ATYPICAL LYMPHOCYTE FLAG 10 (0-99); FRAGMENT RBC FLAG 20 (0-99); HEMATOCRIT 29.3 % (38.0-47.0); HEMOGLOBIN 9.8 g/dL (12.6-16.3); LEFT SHIFT FLG 0 (0-99); LIPEMIA HEMOLYSIS FLAG 80 (0-99); MEAN CELL HEMOGLOBIN 28.2 pg (27.9-34.1); MEAN CELL HEMOGLOBIN CONCENTR. 33.4 g/dL (32.4-36.7); MEAN CELL VOLUME 84.4 fL (81.5-99.8); MEAN PLATELET VOLUME 10.3 fL (8.7-11.7); PLATELET CLUMPS FLAG 0 (0-99); PLATELET COUNT 340 10^3/uL (150-400); RED BLOOD CELL COUNT 3.47 10^6/uL (4.18-5.33); RED CELL DISTRIBUTION WIDTH 18.7 % (11.5-15.2)
[2016-09-14 06:58] LABS: ANION GAP 9 mEq/L (8-16); CALCIUM 8.1 mg/dL (8.5-10.4); CARBON DIOXIDE 19 mEq/l (22-31); CHLORIDE 105 mEq/L (97-110); CREATININE 0.5 mg/dL (0.6-1.0); GLOMERULAR FILTRATION RATE > 60; GLUCOSE 67 mg/dL (70-100); MAGNESIUM 1.9 mg/dL (1.6-2.3); POTASSIUM 3.6 mEq/L (3.5-5.2); SODIUM 133 mEq/L (134-144)
[2016-09-14] MEDS: ENOXAPARIN 40 MG/0.4 ML SYR SC SCH (08:14)
[2016-09-14] MEDS: ACETAMINOPHEN 500 MG TAB PO PRN ×2 (08:14→19:36)
[2016-09-14] MEDS ORDERED: ONDANSETRON DISINTEGRATING 4 MG TAB PO PRN (10:29)
[2016-09-14] MEDS ORDERED: PROMETHAZINE HCL 25 MG TAB PO PRN (10:29)
[2016-09-14] MEDS ORDERED: ACETAMINOPHEN 325 MG TAB PO PRN (10:29)
--- NOTE | 2016-09-14 11:38 | GCON ---
[f rep st] CONSULTATION DATE OF CONSULTATION: 07/14/2016 CHIEF COMPLAINT: Small bowel obstruction. HISTORY OF PRESENT ILLNESS: The patient is a 66-year-old woman who is well known to me. I originally took her to the operating room for a da Carlos ventral hernia repair in July 2014. She developed a bowel obstruction after and returned to the operating room, and there was an unrelated internal hernia. She has a known hernia containing transverse colon and a known hiatal hernia. We have discussed multiple times about repairing the midline hernia. Yesterday, she presented to the ER because she had had a week's worth of diarrhea followed by intense vomiting. She had a CT scan that shows a partial small bowel obstruction. PAST MEDICAL HISTORY: Colon cancer, COPD, scleroderma with CREST, Sjogren syndrome, hypoparathyroid, palpitations, bipolar, carotid artery stenosis, hyperlipidemia, insomnia, Hodge esophagus. PAST SURGICAL HISTORY: Ventral hernia repair in 2014; reduction of internal hernia in 2014; right hemicolectomy for colon cancer September 04, 2013; laparoscopic cholecystectomy; right hip surgery. MEDICATIONS: Reviewed in chart. ALLERGIES: Penicillin, Ativan, Diflucan, sulfa, and Levaquin. SOCIAL HISTORY: She does smoke. She lives with assistance. FAMILY HISTORY: Significant for hyperlipidemia, heart disease, and hypertension. She has a sister with cancer. REVIEW OF SYSTEMS: She does suffer from lower extremity edema, and she is currently complaining of the history of diarrhea and the emesis. She has not had emesis in over 12 hours. She denies chest pain, shortness of breath, or headaches. PHYSICAL EXAMINATION: GENERAL: Pleasant, well-nourished, well-groomed woman sitting up in bed. She appears well. HEENT: Normocephalic. No gross hearing deficits. Mucous membranes moist. Pupils equal and round. No scleral icterus. LUNGS: Clear to auscultation bilaterally. No increased work of breathing. CARDIAC: Regular rate. ABDOMEN: Bowel sounds are hypoactive. She does have a palpable reducible ventral hernia. It is at the left superior aspect of the midline surgical incision. She is distended but the patient reports this is much improved from yesterday. SKIN: Warm and dry. IMPRESSION AND PLAN: The patient is a 66-year-old with a hiatal hernia. Due to CREST and this being asymptomatic, she should not have repair of the hiatal hernia with a fundoplication. In terms of her ventral hernia, when she is stable, I am happy to repair this. I have been in contact with her PCP about this conversation for over 6 months and this is elective. I believe her small bowel obstruction was related to her GI virus. We will see how she improves from this. It is possible we might do a Gastrografin small bowel follow- through to see if there is a true obstruction in this area. For now, mychal guzman and n.p.o. /[id number]/MODL MTDD
[2016-09-14] MEDS: SODIUM CHLORIDE 1,000 MG TAB PO SCH ×2 (13:46→17:38)
--- NOTE | 2016-09-14 15:08 | HOSPPROG ---
Hospitalist Progress Note Assessment/Plan: 66-year-old female with COPD, scleroderma, the bipolar disorder, chronic pain syndrome with degenerative disc disease and osteoporosis of the spine on chronic opioid therapy presents to the ED with 1 week of abdominal pain, nausea vomiting and diarrhea. CT abdomen pelvis reveals small bowel obstruction. Assessment 1st encounter with the patient, chart reviewed. Patient discussed with Dr. Marino of surgery. Plan: # acute small bowel obstruction Patient continues to pass BM and flatus and on my evaluation states nausea/ vomiting had significantly improved. Imaging reveals evidence of mechanical SBO. Surgery was consult, given minimal symptoms, recommended conservative management. Will maintain NPO, give IVF hydration and symptomatic treatment of nausea and pain. # nausea, vomiting, diarrhea N/v likely related to acute SBO, but infectious etiology also a possibility, likely viral. Patient with mild leukocytosis, afebrile and without evidence of SIRS/sepsis. Reports diarrhea has resolved and nausea/vomiting improving. Will cont to monitor, if recurrent diarrhea, will check stool studies. # positive UA Patient was recently treated for acute cystitis with macrobid in previous admission. Today's admission UA is grossly positive, but patient denies any significant symptoms. CT reveals evidence of cystitis, so will treat again with macrobid. No evidence of pyelonephritis on imaging. f/u today's urine culture. # COPD Resp status stable, without wheezing on exam. Will provide nebs and supplemental O2 prn. # anemia Stable Chronic condition # chronic pain, osteoporosis, degenerative disc disease Patient reports pain is at baseline, will continue home oxycodone, Valium and tizanidine prn. # hypothyroidism Cont home synthroid. # bipolar disorder. Stable mood, cont home med. # dispo: admit to inpt service for > 2 [place] stay for acute SBO # gen: NPO DVT ppx: lovenox DNR Subjective: Feeling significantly better today. Less abdominal distention. Passing gas with decreased abdominal pain. No more complaints of nausea and vomiting. Objective: Vital Signs Temp Pulse Resp BP Pulse Ox 36.7 C 89 16 149/82 H 92 09/14/16 08:00 09/14/16 08:00 09/14/16 08:00 09/14/16 08:00 09/14/16 08:00 Laboratory Results 09/14/16 06:15 09/14/16 06:15 09/13/16 09/14/16 09/15/16 05:59 05:59 05:59 Intake Total 500 344 Balance 500 344 PT 13.5 SEC (12.0-15.0) 09/13/16 18:50 INR 1.04 (0.83-1.16) 09/13/16 18:50 - Physical Exam Constitutional: appears nourished, not in pain, chronically ill appearing Eyes: PERRL, anicteric sclera, EOMI Ears, Nose, Mouth, Throat: moist mucous membranes, hearing normal, ears appear normal Cardiovascular: No JVD, No tachycardia, No edema Respiratory: no respiratory distress, no rales or rhonchi, reduced air movement Gastrointestinal: tenderness, distension, No ascites Skin: warm, normal color, No erythema Musculoskeletal: no joint effusions, muscular tenderness, generalized weakness Neurologic: AAOx3 Psychiatric: interacting appropriately, not anxious, not encephalopathic ICD10 Worksheet Patient Problems: Problems Problem Status Onset Colon adenocarcinoma Acute Hyponatremia syndrome Acute Abdominal pain Acute Periumbilical hernia Acute Small bowel obstruction Acute
[2016-09-14] MEDS: oxyCODONE IR 5 MG TAB PO SCH (17:38)
[2016-09-14] MEDS ORDERED: NON-FORMULARY NEW DRUG (Simvastatin [Zocor 10 Mg] 10 MG) PO SCH (18:00)
[2016-09-14] MEDS ORDERED: CHOLECALCIFEROL VIT D3 1,000 UNITS TAB PO SCH (18:00)
[2016-09-14] MEDS ORDERED: GABAPENTIN 100 MG CAP PO SCH (18:00)
[2016-09-14] MEDS: clonazePAM 0.5 MG TAB PO SCH (20:55)
[2016-09-14] MEDS ORDERED: PANTOPRAZOLE SODIUM 40 MG TAB PO SCH ×2 (21:00)
[2016-09-14] MEDS ORDERED: ESZOPICLONE 2 MG PO SCH (21:00)
[2016-09-14] MEDS ORDERED: PANTOPRAZOLE SODIUM 20 MG PO SCH (21:00)
[2016-09-14 22:26] VITALS: RESP 16
[2016-09-15] MEDS: NS 1,000 ML IV SCH (01:01)
[2016-09-15] MEDS: ACETAMINOPHEN 500 MG TAB PO PRN (02:26)
[2016-09-15] MEDS: oxyCODONE IR 5 MG TAB PO PRN (06:45)
[2016-09-15] MEDS: ENOXAPARIN 40 MG/0.4 ML SYR SC SCH (08:03)
[2016-09-15] MEDS: NITROFURANTOIN MACROBID 100 MG CAP PO SCH (08:07)
[2016-09-15] MEDS: SODIUM CHLORIDE 1,000 MG TAB PO SCH (08:13)
[2016-09-15] MEDS: clonazePAM 0.5 MG TAB PO SCH (08:13)
[2016-09-15 08:22] VITALS: BP 121/67; PULSE 110
[2016-09-15] MEDS: oxyCODONE IR 5 MG TAB PO SCH (08:25)
[2016-09-15 08:30] VITALS: TEMP 97.9; O2SAT 94
[2016-09-15] MEDS ORDERED: NON-FORMULARY NEW DRUG (Lamotrigine [Lamictal] 300 MG) PO SCH (09:00)
[2016-09-15] MEDS ORDERED: MAGNESIUM OXIDE 400 MG TAB PO SCH (09:00)
[2016-09-15] MEDS ORDERED: ATORVASTATIN CALCIUM 10 MG TAB PO SCH (09:00)
[2016-09-15] MEDS ORDERED: DILTIAZEM CD 120 MG CAP PO SCH (09:00)
[2016-09-15] MEDS ORDERED: CLOPIDOGREL BISULFATE 75 MG TAB PO SCH (09:00)
[2016-09-15] MEDS ORDERED: FLUoxetine 20 MG CAP PO SCH (09:00)
[2016-09-15] MEDS ORDERED: lamoTRIgine 100 MG TAB PO SCH (09:00)
--- NOTE | 2016-09-15 13:07 | GDS ---
[f rep st] DISCHARGE SUMMARY DISCHARGE DIAGNOSES: 1. Small bowel obstruction. 2. Nausea, vomiting with diarrhea. 3. Escherichia coli urinary tract infection. 4. History of chronic obstructive pulmonary disease. 5. Anemia. 6. Chronic pain. 7. Hypothyroidism. 8. Bipolar disorder. CONSULTATIONS: Dr. Dubon of General Surgery. STUDIES AND PROCEDURES DONE: CT of the abdomen. PHYSICAL EXAM: GENERAL: The patient is alert and oriented. VITAL SIGNS: Afebrile at 36.6, pulse is 110, respiratory rate 16, blood pressure is 121/67. She is saturating 94% on room air. I have s een and evaluated the patient on the day of discharge. HOSPITAL COURSE: The patient is a 66-year-old female with multiple medical problems. She presented to the emergency room with complaints of nausea, vomiting, and diarrhea. She was evaluated and stephanie gnosed with 1. Acute small-bowel obstruction. During this hospitalization, the patient's condition has complet amy resolved. She was given supportive management and she is able to tolerate a regular diet. She is passing flatulence and having bowel movements. She did receive a consultation from Dr. Dubon, nakia o is her primary surgeon, with no further intervention warranted. 2. Nausea, vomiting, diarrhea. This was in the setting of a small-bowel obstruction and has [facility] ed. 3. E coli urinary tract infection. The patient has been initiated on Macrobid and will continue th is in the outpatient setting. I provided her a prescription for continued antibiotic therapy. 4. History of COPD. She has no signs of exacerbation at this time and is stable. 5. Anemia. This is a chronic condition for the patient and is stable at the time of disposition. 6. Chronic pain. The patient has been able to return to her regular pain regimen and is tolerating this well. DISPOSITION: The patient will be discharged home independently. She does reside at assisted living . She will return to her normal living environment. I reviewed the patient's care with Dr. Jagdish osorio Surgery. She is in agreement with this plan. DISCHARGE MEDICATIONS: Please refer to EMR form. I have not adjusted the patient's previously pres cribed home medications, with the exception of the addition of Macrobid 100 mg p.o. b.i.d. She has been provided a prescription for this medication at the time of disposition. I spent greater than 35 minutes in the care, coordination, and management of this patient's disposit ion. /[id number]/MODL
[2016-09-19] MEDS ORDERED: LEVOTHYROXINE 75 MCG TAB PO SCH (06:00)
== END 2016-09-15 11:17 | DRG 389 ==
LOC: EDUNIT# → EDBD → F3E 22:46
PROVIDERS: ADMIT Internal Medicine; ATTEND Internal Medicine
DX: K56.60 Unspecified intestinal obstruction (principal); N39.0 Urinary tract infection, site not specified; B96.20 Unspecified Escherichia coli [E. coli] as the cause of diseases classified elsewhere; J44.9 Chronic obstructive pulmonary disease, unspecified; D64.9 Anemia, unspecified; G89.4 Chronic pain syndrome; E03.9 Hypothyroidism, unspecified; F31.9 Bipolar disorder, unspecified; Z85.038 Personal history of other malignant neoplasm of large intestine; I25.10 Atherosclerotic heart disease of native coronary artery without angina pectoris; M34.9 Systemic sclerosis, unspecified; Z88.0 Allergy status to penicillin; Z72.0 Tobacco use
CPT/HCPCS: J1650; Q9967

== ENCOUNTER 2016-10-04 11:54 | Inpatient (IN) | payer OTHER ==
[2016-10-04] MEDS ORDERED: IPRATROPIUM/ALBUTEROL 3 ML DEYVIAL IH ONE (12:22)
--- NOTE | 2016-10-04 12:27 | EDPHY ---
General Narrative: CHIEF COMPLAINT: Cough, congestion, runny nose ; possible sepsis from [facility] HISTORY OF PRESENT ILLNESS: patient complains of cough, congestion, runny nose , body aches and chills. No fever. No chest pain. No shortness of breath. The cough is dry and nonproductive. She says that the symptoms are mild to moderate over the past 2 days. She has no neck pain or stiffness. No headache. No dizziness. No syncope. No urinary complaints. She does have a abdominal periumbilical hernia, for which I have evaluated her here in the past. No changes from this. No constipation. No vomiting. No diarrhea. She was seen earlier today at [facility] to be evaluated for pain management for chronic pain. She said that the vital signs are abnormal, and they were concerned for sepsis and sent her here. She says she does not feel that ill. No other associated complaints or modifying factors. REVIEW OF SYSTEMS: Ten systems reviewed and are negative unless otherwise noted in the HPI EXAMINATION General Appearance: Alert, no distress Head: normocephalic, atraumatic Eyes: Pupils equal and round, no conjunctival pallor or injection . EOMs intact. ENT, Mouth: Mucous membranes moist . Uvula midline. No erythema or edema Neck: Normal inspection, supple, non-tender. No meningismus. Respiratory: Scattered rhonchi on the right. No consolidation on the left. Minimal wheezing on the right. No distress. Cardiovascular: Regular rate and rhythm . No murmur. Pulses intact distally. Gastrointestinal: Abdomen is soft and nontender . There is a palpable periumbilical hernia that is easily reducible. No tympany or rigidity. Back: non-tender, no bony abnormalities Neurological: A&O, nonfocal, Strength is 5/5 in all limbs. Skin: Warm and dry, no rash Extremities: Nontender, no pedal edema Psychiatric: Mood and affect normal DIFFERENTIAL DIAGNOSES: Including but not limited to Viral illness, influenza, pneumonia, COPD, chronic pain, sepsis MDM: 12:25 p.m. cough, congestion, body aches and chills. The patient has complains more consistent with viral and/or influenzae. However she was sent here from the [facility] due to reportedly abnormal vital signs. She says that she was told that her blood pressure was in the 70 systolic. She is 102/80 during my examination. Her heart rate was mildly elevated, and she was mildly tachypneic. She was sent here due to the possibility of sepsis. While I do not appreciate an examination consistent with sepsis, I have ordered blood cultures , lactic acid laboratory studies and chest x-ray. We will rule in or out sepsis. I suspect she is viral in etiology. She does have a mild hypoxia at 89 -90%. We will place her on oxygen and administer a DuoNeb. 1:20 p.m. notified by radiologist Dr. Lucero that there is a lung nodule on the left side of the chest. He recommends that the patient have a follow-up CT scan of the chest for further delineation within the next month. He does not recommend emergent CT scan of the chest. No other acute findings on the x-ray. 2:05 p.m. I have re-evaluated the patient. Although her workup is relatively benign, she remains hypoxic off of her supplemental oxygen. We have trialed her twice on room air, and she is consistently at 86-88% on room air. She will need admission for supplemental oxygen. I suspect this is a viral etiology but may be an atypical pneumonia not evident on examination or x-ray. We are awaiting her urinalysis for final disposition. 2:25 p.m. patient remains hypoxic on room air. I will proceed with admission. This is likely viral versus atypical pneumonia. Influenza test is pending at this time. I will discuss case with the hospitalist. 2:35 p.m. no discussed the case with Dr. Bustos. He will admit the patient. Influenza swab pending at this time. UA pending. 3:05 p.m. influenza negative. UA minimally positive with 1+ leukocyte esterase and nitrates I will defer antibiosis to admitting hospitalist as her etiology is not clear at this time. Cultures were drawn lactic acid is negative. She is admitted in stable condition with mild hypoxia, resolved with nasal cannula. SUPERVISION: independent evaluation Case discussed with Dr. Ferguson - History Smoking Status: Light smoker - Objective Vital Signs: Initial Vital Signs Temperature (C) 98.2 F 10/04/16 12:01 Heart Rate 112 H 10/04/16 12:01 Respiratory Rate 22 H 10/04/16 12:01 Blood Pressure 102/64 10/04/16 12:01 O2 Sat (%) 90 L 10/04/16 12:01 O2 Delivery Mode Nasal Cannula O2 (L/minute) 2 Allergies/Adverse Reactions: lorazepam [From Ativan] Allergy (Severe, Verified 10/04/16 11:58) fluconazole [From Diflucan] Allergy (Intermediate, Verified 10/04/16 11:58) Penicillins Allergy (Intermediate, Verified 10/04/16 11:58) Sulfa (Sulfonamide Antibiotics) Allergy (Intermediate, Verified 10/04/16 11:58) levofloxacin Allergy (Mild, Verified 10/04/16 11:58) Other-Enter Comments haloperidol [From Haldol] Allergy (Verified 10/04/16 11:58) haloperidol lactate [From Haldol] Allergy (Verified 10/04/16 11:58) Quinolones Allergy (Verified 10/04/16 11:58) zolpidem tartrate [From Ambien] Allergy (Verified 10/04/16 11:58) Other-Enter Comments Home Medications: Medication Instructions Recorded Clopidogrel Bisulfate [Plavix (*)] 75 mg PO DAILY #14 tab 04/16/14 Acetaminophen [Tylenol 325mg (*)] 650 mg PO Q4H PRN 06/21/16 Cholecalciferol Vit D3 [Vitamin D3 2,000 units PO DAILY18 06/21/16 (*)] Eszopiclone [Lunesta] 2 mg PO HS 06/21/16 FLUoxetine [Prozac 20 MG (*)] 40 mg PO DAILY 06/21/16 Pantoprazole Sodium 20 mg PO HS 06/21/16 Simvastatin [Zocor 10 mg] 10 mg PO DAILY18 06/21/16 Levothyroxine [Synthroid 75 mcg 75 mcg PO TH@06 08/22/16 (*)] Magnesium Oxide [Magnesium] 400 mg PO DAILY #30 tablet 08/27/16 Ondansetron Odt [Zofran Odt 4 mg 4 - 8 mg PO Q4HRS PRN #0 tab 08/27/16 (*)] Promethazine HCl [Phenergan 25mg 12.5 - 25 mg PO Q6HRS PRN #0 tab 08/27/16 (*)] Sodium Chloride [Salt Tablet] 1,000 mg PO TIDMEAL tab 08/27/16 clonazePAM [Klonopin (*)] 0.5 mg PO BID tab 08/27/16 tiZANidine HCL [Zanaflex] 2 - 4 mg PO TID PRN #0 tab 08/27/16 Gabapentin [Neurontin 100 MG (*)] 100 mg PO DAILY18 09/13/16 lamOTRIGine [Lamictal] 300 mg PO DAILY 09/13/16 oxyCODONE IR [Oxycodone Ir (*)] 5 mg PO BIDMEAL 09/13/16 Laboratory Results: Laboratory Results 10/04/16 12:35 10/04/16 12:35 10/04/16 10/04/16 10/04/16 12:35 12:35 12:35 WBC RBC Hgb Hct MCV MCH MCHC RDW Plt Count MPV Neut % (Auto) Lymph % (Auto) [place] % (Auto) Eos % (Auto) Baso % (Auto) Nucleat RBC Rel Count Absolute Neuts (auto) Absolute Lymphs (auto) Absolute Monos (auto) Absolute Eos (auto) Absolute Basos (auto) Absolute Nucleated RBC Immature Gran % Immature Gran # Platelet Estimate Hypochromasia Target Cells Keratocytes PT 12.8 SEC SEC (12.0-15.0) INR 0.97 (0.83-1.16) APTT 31.0 SEC SEC (23.0-38.0) VBG Lactic Acid Sodium 130 mEq/L L mEq/L (134-144) Potassium 4.2 mEq/L mEq/L (3.5-5.2) Chloride 100 mEq/L mEq/L (97-110) Carbon Dioxide 20 mEq/l L mEq/l (22-31) Anion Gap 10 mEq/L mEq/L (8-16) BUN 8 mg/dL mg/dL (7-23) Creatinine 0.4 mg/dL L mg/dL (0.6-1.0) Estimated GFR > 60 Glucose 91 mg/dL mg/dL (70-100) Calcium 8.7 mg/dL mg/dL (8.5-10.4) Total Bilirubin 0.6 mg/dL mg/dL (0.1-1.4) Influenza A & B (PCR) NEGATIVE FOR FLU (NEGATIVE) 10/04/16 10/04/16 12:35 12:35 WBC 13.85 10^3/uL H 10^3/uL (3.80-9.50) RBC 4.04 10^6/uL L 10^6/uL (4.18-5.33) Hgb 11.4 g/dL L g/dL (12.6-16.3) Hct 33.7 % L % (38.0-47.0) MCV 83.4 fL fL (81.5-99.8) MCH 28.2 pg pg (27.9-34.1) MCHC 33.8 g/dL g/dL (32.4-36.7) RDW 22.3 % H % (11.5-15.2) Plt Count 327 10^3/uL 10^3/uL (150-400) MPV 9.8 fL fL (8.7-11.7) Neut % (Auto) 73.5 % % (39.3-74.2) Lymph % (Auto) 19.1 % % (15.0-45.0) [place] % (Auto) 6.7 % % (4.5-13.0) Eos % (Auto) 0.2 % L % (0.6-7.6) Baso % (Auto) 0.1 % L % (0.3-1.7) Nucleat RBC Rel Count 0.0 % % (0.0-0.2) Absolute Neuts (auto) 10.16 10^3/uL H 10^3/uL (1.70-6.50) Absolute Lymphs (auto) 2.65 10^3/uL 10^3/uL (1.00-3.00) Absolute Monos (auto) 0.93 10^3/uL H 10^3/uL (0.30-0.80) Absolute Eos (auto) 0.03 10^3/uL 10^3/uL (0.03-0.40) Absolute Basos (auto) 0.02 10^3/uL 10^3/uL (0.02-0.10) Absolute Nucleated RBC 0.00 10^3/uL 10^3/uL (0-0.01) Immature Gran % 0.4 % % (0.0-1.1) Immature Gran # 0.06 10^3/uL 10^3/uL (0.00-0.10) Platelet Estimate ADEQUATE (ADEQ) Hypochromasia 1+ H Target Cells 1+ H Keratocytes 1+ H PT INR APTT VBG Lactic Acid 1.3 mmol/L mmol/L (0.7-2.1) Sodium Potassium Chloride Carbon Dioxide Anion Gap BUN Creatinine Estimated GFR Glucose Calcium Total Bilirubin Influenza A & B (PCR) Medications Given: Discontinued Medications Albuterol/Ipratropium (Duoneb) 3 ml IH EDNOW ONE Stop: 10/04/16 12:23 Last Admin: 10/04/16 12:52 Dose: 3 ml Sodium Chloride (Ns) 1,000 mls @ 0 mls/hr IV ONCE ONE PRN Reason: Wide Open Stop: 10/04/16 13:35 Last Admin: 10/04/16 13:48 Dose: 1,000 mls Departure - Departure Disposition: [facility] Inpatient Acute Clinical Impression: Hypoxia, Lower respiratory infection Condition: Good
[2016-10-04 12:49] LABS: % IMMATURE GRANULYOCYTES 0.4 % (0.0-1.1); ABSOLUTE IMMATURE GRANULOCYTES 0.06 10^3/uL (0.00-0.10); ADD DIFF? NO; ADD MORPH? YES; ADD SCAN? NO; ATYPICAL LYMPHOCYTE FLAG 30 (0-99); FRAGMENT RBC FLAG 20 (0-99); HEMATOCRIT 33.7 % (38.0-47.0); HEMOGLOBIN 11.4 g/dL (12.6-16.3); LEFT SHIFT FLG 0 (0-99); LIPEMIA HEMOLYSIS FLAG 90 (0-99); MEAN CELL HEMOGLOBIN 28.2 pg (27.9-34.1); MEAN CELL HEMOGLOBIN CONCENTR. 33.8 g/dL (32.4-36.7); MEAN CELL VOLUME 83.4 fL (81.5-99.8); MEAN PLATELET VOLUME 9.8 fL (8.7-11.7); PLATELET CLUMPS FLAG 0 (0-99); PLATELET COUNT 327 10^3/uL (150-400); RED BLOOD CELL COUNT 4.04 10^6/uL (4.18-5.33)
[2016-10-04 12:55] LABS: RED CELL DISTRIBUTION WIDTH 22.3 % (11.5-15.2)
[2016-10-04 12:59] LABS: INR 0.97 (0.83-1.16); PROTIME(PATIENT) 12.8 SEC (12.0-15.0)
[2016-10-04 13:16] LABS: ANION GAP 10 mEq/L (8-16); BILIRUBIN,TOTAL 0.6 mg/dL (0.1-1.4); CALCIUM 8.7 mg/dL (8.5-10.4); CARBON DIOXIDE 20 mEq/l (22-31); CHLORIDE 100 mEq/L (97-110); CREATININE 0.4 mg/dL (0.6-1.0); GLOMERULAR FILTRATION RATE > 60; GLUCOSE 91 mg/dL (70-100); POTASSIUM 4.2 mEq/L (3.5-5.2); SODIUM 130 mEq/L (134-144)
[2016-10-04 13:27] LABS: HYPOCHROMIA 1+
[2016-10-04 13:28] LABS: KERATOCYTES 1+; PLATELET ESTIMATE ADEQUATE (ADEQ); TARGET CELLS 1+
[2016-10-04] MEDS ORDERED: NS 1,000 ML IV ONE (13:34)
[2016-10-04 15:00] LABS: COLOR YELLOW; LEUKOCYTE ESTERASE,URINE TRACE (NEGATIVE); NITRITE,URINE POSITIVE (NEGATIVE)
[2016-10-04 15:09] LABS: BACTERIA 3+ /hpf (NONE SEEN); MUCUS TRACE /lpf (NONE-1+); WBC,URINE 15-25 /hpf (0-3)
[2016-10-04] MEDS ORDERED: ALBUTEROL 3 ML DEYVIAL IH PRN (15:56)
[2016-10-04] MEDS ORDERED: ONDANSETRON 4 MG/2 ML VIAL IVP PRN (15:56)
--- NOTE | 2016-10-04 16:16 | GHP ---
[f rep st] HISTORY AND PHYSICAL DATE OF ADMISSION: 10/04/2016 CHIEF COMPLAINT: Shortness of breath. HISTORY OF PRESENT ILLNESS: This is a 66-year-old female with a history of COPD. She also has a hi story of bipolar and chronic hyponatremia. She presents with 2-3 days of upper respiratory tract in fection symptoms as well as cough. She has clear sputum. She does have some wheezing. Also some s hortness of breath. No fevers or chills. No chest pain. REVIEW OF SYSTEMS: A 10-point review of systems was obtained and was otherwise negative. PAST MEDICAL HISTORY: 1. Bipolar. 2. Chronic hyponatremia. 3. Scleroderma/CREST/fibromyalgia. 4. Coronary artery disease. 5. Osteoporosis. 6. Hypothyroidism. 7. History of colon cancer. 8. History of alcohol abuse. 9. COPD. SOCIAL HISTORY: Smokes E-cigarettes. She was a smoker prior. Patient lives in assisted living. FAMILY HISTORY: Reviewed and noncontributory. PHYSICAL EXAM: VITAL SIGNS: Afebrile, blood pressure is 105/78, heart rate is 80, oxygen saturatio n 94% on 2 L. GENERAL: The patient is well developed, no apparent distress. HEENT: Nonicteric sc lerae. NECK: Supple. No thyromegaly. LUNGS: Good effort. Some slight expiratory fine expirator y wheezes. Rhonchi especially on the left. Decent air movement but decreased. CARDIOVASCULAR: Re gular rate and rhythm. No murmurs, gallops. ABDOMEN: Positive bowel sounds. Soft, nontender, non distended. No hepatosplenomegaly. EXTREMITIES: No clubbing, cyanosis, edema. SKIN: No rash. In tact. NEUROLOGIC: Alert and oriented x3. Moving all 4 extremities equally. PSYCH: Normal affect . LABS: White blood cell count slightly elevated at 13, hemoglobin 11, platelets 327. Chemistry show s sodium 130, creatinine 0.4. UA does show some positive nitrites and 3+ bacteria. Chest x-ray maya ws some bronchitis versus early viral pneumonia ASSESSMENT: This is a 66-year-old female presenting with what sounds like viral upper respiratory i nfection, bronchitis/chronic obstructive pulmonary disease exacerbation. PLAN: 1. Bronchitis/COPD exacerbation. We will continue with nebulizer treatments. We will start her on prednisone. At this point, even though the patient does have a slightly elevated white blood cell count, I am hesitating to place her on antibiotics. Monitor white blood cell count in response to j ust prednisone and nebulizer treatments. 2. Chronic hyponatremia. We will continue on fluid restriction and monitor sodium. 3. Bipolar. Continue medications. 4. History of recent small bowel obstruction. This is resolved. 5. Pyuria. The patient is not having any symptoms of urinary tract infections; thus, we will hold off on any antibiotics. 6. History of coronary artery disease. 7. Admission: Patient will be admitted under observation status. Case discussed with ER physician . Old records reviewed and summarized in HPI. Chest x-ray was personally reviewed and interpreted. /[id number]/MODL
[2016-10-04] MEDS: IPRATROPIUM/ALBUTEROL 3 ML DEYVIAL IH SCH ×2 (16:37→21:44)
[2016-10-04] MEDS: ONDANSETRON DISINTEGRATING 4 MG TAB PO PRN (16:58)
[2016-10-04] MEDS: predniSONE 20 MG TAB PO SCH (16:58)
[2016-10-04] MEDS: NICOTINE 7 MG/24 HR PATCH TD SCH (17:01)
[2016-10-04] MEDS ORDERED: PROMETHAZINE HCL 25 MG TAB PO PRN (18:27)
[2016-10-04] MEDS: tiZANidine HCL 2 MG TAB PO PRN (18:44)
[2016-10-04] MEDS: clonazePAM 0.5 MG TAB PO SCH (18:45)
[2016-10-04] MEDS: Eszopiclone [Lunesta] 2 MG PO SCH (20:02)
[2016-10-05 05:03] LABS: % IMMATURE GRANULYOCYTES 0.4 % (0.0-1.1); ABSOLUTE IMMATURE GRANULOCYTES 0.04 10^3/uL (0.00-0.10); ADD DIFF? NO; ADD MORPH? YES; ADD SCAN? NO; ATYPICAL LYMPHOCYTE FLAG 40 (0-99); FRAGMENT RBC FLAG 40 (0-99); HEMATOCRIT 33.3 % (38.0-47.0); HEMOGLOBIN 11.1 g/dL (12.6-16.3); LEFT SHIFT FLG 10 (0-99); LIPEMIA HEMOLYSIS FLAG 80 (0-99); MEAN CELL HEMOGLOBIN 28.2 pg (27.9-34.1); MEAN CELL HEMOGLOBIN CONCENTR. 33.3 g/dL (32.4-36.7); MEAN CELL VOLUME 84.5 fL (81.5-99.8); MEAN PLATELET VOLUME 9.9 fL (8.7-11.7); PLATELET CLUMPS FLAG 0 (0-99); PLATELET COUNT 319 10^3/uL (150-400); RED BLOOD CELL COUNT 3.94 10^6/uL (4.18-5.33)
[2016-10-05 05:07] LABS: RED CELL DISTRIBUTION WIDTH 22.5 % (11.5-15.2)
[2016-10-05 05:18] LABS: ANION GAP 11 mEq/L (8-16); CALCIUM 8.5 mg/dL (8.5-10.4); CARBON DIOXIDE 20 mEq/l (22-31); CHLORIDE 101 mEq/L (97-110); CREATININE 0.4 mg/dL (0.6-1.0); GLOMERULAR FILTRATION RATE > 60; GLUCOSE 144 mg/dL (70-100); POTASSIUM 4.2 mEq/L (3.5-5.2); SODIUM 132 mEq/L (134-144)
[2016-10-05 05:34] LABS: PLATELET ESTIMATE ADEQUATE (ADEQ)
[2016-10-05 05:36] LABS: HYPOCHROMIA 1+
[2016-10-05 05:38] LABS: TARGET CELLS 1+
[2016-10-05] MEDS: IPRATROPIUM/ALBUTEROL 3 ML DEYVIAL IH SCH ×4 (06:09→20:04)
[2016-10-05] MEDS: tiZANidine HCL 2 MG TAB PO PRN ×3 (06:34→23:45)
[2016-10-05] MEDS: ENOXAPARIN 40 MG/0.4 ML SYR SC SCH (08:14)
[2016-10-05] MEDS: FLUoxetine 20 MG CAP PO SCH (08:15)
[2016-10-05] MEDS: predniSONE 20 MG TAB PO SCH (08:15)
[2016-10-05] MEDS: clonazePAM 0.5 MG TAB PO SCH ×2 (08:15→17:21)
[2016-10-05] MEDS: oxyCODONE IR 5 MG TAB PO SCH ×2 (08:15→17:22)
[2016-10-05] MEDS: SODIUM CHLORIDE 1,000 MG TAB PO SCH ×3 (08:15→17:21)
[2016-10-05] MEDS: CLOPIDOGREL BISULFATE 75 MG TAB PO SCH (08:15)
[2016-10-05] MEDS: Lamotrigine [Lamictal Xr] 300 MG PO SCH (08:34)
[2016-10-05] MEDS: NICOTINE 7 MG/24 HR PATCH TD SCH (08:34)
[2016-10-05] MEDS: ACETAMINOPHEN 325 MG TAB PO PRN ×2 (11:17→15:28)
--- NOTE | 2016-10-05 11:18 | HOSPPROG ---
Hospitalist Progress Note Assessment/Plan: 66-year-old female with a history of COPD presents to the emergency room with complaints of shortness of breath. This is my 1st encounter with this patient chart reviewed. # COPD exacerbation Continue oral prednisone Continue breathing treatments Patient continues to be short of breath Wheezing # chronic hyponatremia stable #Bipolar cont home meds #Dispo change to inpt status requires further supportive care in hospital setting Will DC in 1-2 days PT/OT eval Subjective: Feeling weak and short of breath. Slept well last night. No pain. Objective: Vital Signs Temp Pulse Resp BP Pulse Ox 36.4 C 75 14 93/53 L 92 10/05/16 08:29 10/05/16 10:09 10/05/16 10:09 10/05/16 08:29 10/05/16 10:09 Laboratory Results 10/05/16 04:56 10/05/16 04:56 10/04/16 10/05/16 10/06/16 05:59 05:59 06:59 Intake Total 1500 Balance 1500 PT 12.8 SEC (12.0-15.0) 10/04/16 12:35 INR 0.97 (0.83-1.16) 10/04/16 12:35 - Physical Exam Constitutional: appears nourished, not in pain, chronically ill appearing Eyes: PERRL, anicteric sclera, EOMI Ears, Nose, Mouth, Throat: moist mucous membranes, hearing normal, ears appear normal Cardiovascular: No JVD, No tachycardia, No edema Respiratory: no respiratory distress, reduced air movement, expiratory wheeze Gastrointestinal: No tenderness, No ascites, No guarding Skin: warm, normal color, No erythema Musculoskeletal: normal joint ROM, no joint effusions, generalized weakness Neurologic: AAOx3 Psychiatric: interacting appropriately, not anxious, not encephalopathic ICD10 Worksheet Patient Problems: Problems Problem Status Onset Colon adenocarcinoma Acute Hyponatremia syndrome Acute Abdominal pain Acute Periumbilical hernia Acute Small bowel obstruction Acute Hypoxia Acute Lower respiratory infection Acute
[2016-10-05] MEDS: PRAVASTATIN SODIUM 20 MG TAB PO SCH ×2 (17:21→17:30)
[2016-10-05] MEDS: ONDANSETRON DISINTEGRATING 4 MG TAB PO PRN (17:21)
[2016-10-05] MEDS ORDERED: PANTOPRAZOLE SODIUM 40 MG TAB PO SCH (18:00)
[2016-10-05] MEDS ORDERED: NON-FORMULARY NEW DRUG (Simvastatin [Zocor 10 Mg] 10 MG) PO SCH (18:00)
[2016-10-05] MEDS ORDERED: CARIPRAZINE HYDROCHLORIDE 3 MG PO SCH (18:00)
[2016-10-05] MEDS ORDERED: PANTOPRAZOLE SODIUM 20 MG PO SCH (18:00)
[2016-10-05] MEDS: Eszopiclone [Lunesta] 2 MG PO SCH (20:35)
[2016-10-05] MEDS ORDERED: diphenhydrAMINE 25 MG CAP PO PRN (23:16)
[2016-10-06] MEDS: IPRATROPIUM/ALBUTEROL 3 ML DEYVIAL IH SCH (05:35)
[2016-10-06 05:37] VITALS: RESP 16
[2016-10-06] MEDS: ACETAMINOPHEN 325 MG TAB PO PRN (05:48)
[2016-10-06 07:53] VITALS: BP 112/60; PULSE 89; TEMP 97.9; O2SAT 91
[2016-10-06] MEDS: tiZANidine HCL 2 MG TAB PO PRN (07:56)
[2016-10-06] MEDS: SODIUM CHLORIDE 1,000 MG TAB PO SCH (07:58)
[2016-10-06] MEDS: clonazePAM 0.5 MG TAB PO SCH (07:58)
[2016-10-06] MEDS: oxyCODONE IR 5 MG TAB PO SCH (07:58)
[2016-10-06] MEDS: predniSONE 20 MG TAB PO SCH (08:00)
[2016-10-06] MEDS: FLUoxetine 20 MG CAP PO SCH (08:01)
[2016-10-06] MEDS: ENOXAPARIN 40 MG/0.4 ML SYR SC SCH (08:01)
[2016-10-06] MEDS: CLOPIDOGREL BISULFATE 75 MG TAB PO SCH (08:01)
[2016-10-06] MEDS: NICOTINE 7 MG/24 HR PATCH TD SCH (08:16)
[2016-10-06] MEDS: Lamotrigine [Lamictal Xr] 300 MG PO SCH (08:16)
--- NOTE | 2016-10-06 12:18 | GDS ---
[f rep st] DISCHARGE SUMMARY DISCHARGE DIAGNOSES: 1. Acute chronic obstructive pulmonary disease exacerbation. 2. Acute hypoxemic respiratory failure. 3. Chronic hyponatremia. 4. Bipolar disorder. PHYSICAL EXAMINATION: GENERAL: The patient is alert. VITAL SIGNS: Afebrile at 36.6, pulse is 89, respiratory rate 16, blood pressure is 112/60. She is saturating 91% on room air. I have seen and evaluated the patient on the day of discharge. HOSPITAL COURSE: The patient is a 66-year-old female who presented to the emergency room with compl aints of shortness of breath. She was evaluated and diagnosed with: 1. Acute chronic obstructive pulmonary disease exacerbation. During this hospitalization, she was treated with oral prednisone as well as nebulizing treatments. Her condition has resolved. Her whe ezing has discontinued and she will continue prednisone in the outpatient setting for a total of 3 m ore days. 2. Acute hypoxemic respiratory failure. This has resolved with treatment of the patient's acute ch ronic obstructive pulmonary disease exacerbation. She is saturating greater than 90% on room air at the time of disposition. 3. Chronic hyponatremia. This is stable with no intervention warranted. 4. Bipolar disorder. We will continue the patient's previously prescribed home medications with no signs of complications. DISPOSITION: The patient will be discharged home to her assisted-living facility where she normally resides. PENDING STUDIES: There are no pending studies. DISCHARGE MEDICATIONS: Please refer to EMR form. I have provided the patient a prescription for pr ednisone 40 mg daily for a total of 3 more days. I reviewed the patient's disposition with the test case developer. I have also recommended to the patient that she follow up with her primary care physician, and potentially get a nebulizing machine for ti e. She is in agreement with this plan. I spent greater than 35 minutes in the care, coordination, and management of this patient's disposit ion. /[id number]/MODL
[2016-10-10] MEDS ORDERED: LEVOTHYROXINE 75 MCG TAB PO SCH (06:00)
== END 2016-10-06 10:29 | DRG 190 ==
LOC: INTOOBSV 14:28 → F3E 15:27 → OBSVTOIN 10-05 11:14
PROVIDERS: ADMIT Internal Medicine; ATTEND Internal Medicine
DX: J44.1 Chronic obstructive pulmonary disease with (acute) exacerbation (principal); J96.01 Acute respiratory failure with hypoxia; E87.1 Hypo-osmolality and hyponatremia; F31.9 Bipolar disorder, unspecified; Z72.0 Tobacco use; Z88.0 Allergy status to penicillin; I25.10 Atherosclerotic heart disease of native coronary artery without angina pectoris; M81.0 Age-related osteoporosis without current pathological fracture; E03.9 Hypothyroidism, unspecified; Z85.038 Personal history of other malignant neoplasm of large intestine
CPT/HCPCS: 97161-GP; G0378; G8978-GP-CI; G8979-GP-CI; J1650

== ENCOUNTER 2016-10-15 14:28 | Inpatient (IN) | payer OTHER ==
[2016-10-15] MEDS ORDERED: NS 500 ML IV ONE (15:00)
--- NOTE | 2016-10-15 15:04 | EDPHY ---
H & P Stated Complaint: slurred speech x45 min, weakness, low BP at [place] office Time Seen by Provider: 10/15/16 15:03 - Personal History Current Tetanus Diphtheria and Acellular Pertussis (TDAP): Yes Tetanus Vaccine Date: unsure - Medical/Surgical History Hx Asthma: No Hx Chronic Respiratory Disease: Yes Hx Diabetes: No Hx Cardiac Disease: Yes Hx Renal Disease: No Hx Cirrhosis: No Hx Alcoholism: No Hx HIV/AIDS: No Hx Splenectomy or Spleen Trauma: No Other PMH: pmh- cecal CA, scleroderma, sjogrens, raynauds, resp failure 2/2 COPD , Bipolar, SVT, severe deperssion, CAD, 50-60% R internal carotid stenosis, 70- 80% L internal carotid stenosis. psh- hemicolectomy, R hip ORIF, maikol, umbilical hernia x3 - Social History Smoking Status: Light smoker Constitutional: Initial Vital Signs Temperature (C) 36.3 C 10/15/16 14:34 Heart Rate 76 10/15/16 14:34 Respiratory Rate 14 10/15/16 14:34 Blood Pressure 61/41 L 10/15/16 14:34 O2 Sat (%) 94 10/15/16 14:34 O2 Delivery Mode Room Air Allergies/Adverse Reactions: lorazepam [From Ativan] Allergy (Severe, Verified 10/04/16 11:58) fluconazole [From Diflucan] Allergy (Intermediate, Verified 10/04/16 11:58) Penicillins Allergy (Intermediate, Verified 10/04/16 11:58) Sulfa (Sulfonamide Antibiotics) Allergy (Intermediate, Verified 10/04/16 11:58) levofloxacin Allergy (Mild, Verified 10/04/16 11:58) Other-Enter Comments haloperidol [From Haldol] Allergy (Verified 10/04/16 11:58) haloperidol lactate [From Haldol] Allergy (Verified 10/04/16 11:58) Quinolones Allergy (Verified 10/04/16 11:58) zolpidem tartrate [From Ambien] Allergy (Verified 10/04/16 11:58) Other-Enter Comments Home Medications: Medication Instructions Recorded Clopidogrel Bisulfate [Plavix (*)] 75 mg PO DAILY #14 tab 04/16/14 Acetaminophen [Tylenol 325mg (*)] 650 mg PO Q4HRS PRN 06/21/16 Cholecalciferol Vit D3 [Vitamin D3 2,000 units PO DAILY18 06/21/16 (*)] Eszopiclone [Lunesta] 2 mg PO HS 06/21/16 FLUoxetine [Prozac 20 MG (*)] 40 mg PO DAILY 06/21/16 Pantoprazole Sodium 20 mg PO DAILY18 06/21/16 Simvastatin [Zocor 10 mg] 10 mg PO DAILY18 06/21/16 Levothyroxine [Synthroid 75 mcg 75 mcg PO TH@06 08/22/16 (*)] Sodium Chloride [Salt Tablet] 1,000 mg PO TIDMEAL tab 08/27/16 oxyCODONE IR [Oxycodone Ir (*)] 5 mg PO BIDMEAL 09/13/16 Cariprazine Hydrochloride [Vraylar] 3 mg PO DAILY18 10/04/16 Promethazine HCl 25 mg PO Q6HRS PRN 10/04/16 clonazePAM [Klonopin (*)] 0.5 mg PO BID@08,18 10/04/16 lamOTRIGine [LamICTAL XR] 300 mg PO DAILY 10/04/16 tiZANidine HCL [Zanaflex 2MG (*)] 2 mg PO Q8HRS PRN 10/04/16 Acetaminophen [Tylenol 325mg (*)] 650 mg PO Q4HRS PRN #0 tab 10/06/16 Nicotine [Nicoderm Cq 7 mg (*)] 7 mg TD DAILY #0 patch 10/06/16 diphenhydrAMINE [Benadryl 25 MG 25 mg PO HS PRN #0 cap 10/06/16 (*)] predniSONE 40 mg PO DAILY #6 tablet 10/06/16 Medical Decision Making ED Course/Re-evaluation: CHIEF COMPLAINT: Near syncope HISTORY OF PRESENT ILLNESS: This patient is an anticoagulated 66 year old female who presents to the Emergency Department complaining of an acute episode of near syncope while at Dr. Marino's office this afternoon. She tells me that she stood up from a chair when she felt acutely lightheaded and felt as though she may pass out. Her blood pressure was taken at that time and was found to be hypotensive at 67/41. She lives in an assisted living facility where she is given her medications but reports that she took one each of Zanaflex and oxycodone today and does not usually take these medications together. Upon arrival, she continues to complain of generalized weakness and reports that she feels dehydrated. She denies any additional complaints. Denies headache, vision changes, or paresthesias. No fever, chills, or other indications of infection. She has an extensive medical history that includes chronic hyponatremia and coronary artery disorder. She was discharged from the hospital earlier this month after treatment for pneumonia. REVIEW OF SYSTEMS: A 10 point review of systems was performed and is negative with the exception of the elements mentioned in the history of present illness. PHYSICAL EXAM: HR 76, BP 61/41, O2 Sat 94%, RR 14. Temp noted General Appearance: Alert, appropriate, and non-toxic appearing. Mild slurred speech. Head: Atraumatic without scalp tenderness or obvious injury Eyes: Pupils equal, round, reactive to light and accommodation, EOMI, no trauma , no injection. Ears: Clear bilaterally, no perforation, normal landmarks Nose: Atraumatic, no rhinorrhea, clear. Throat: There is no erythema or exudates, no lesions, normal tonsils, mucus membranes moist. Neck: Supple, 2+ carotid upstroke, nontender, no lymphadenopathy. Respiratory: No retractions, no distress, no wheezes, and no accessory muscle use. Lungs are clear to auscultation bilaterally. Cardiovascular: Regular rate and rhythm, no murmurs, rubs, or gallops. Bilateral carotid, radial, dorsalis pedis, and posterior tibial pulses intact. Good capillary refill all extremities. Gastrointestinal: Abdomen is soft, nontender, non-distended, no masses, no rebound, no guarding, no peritoneal signs. Musculoskeletal: Normal active ROM of all extremities, atraumatic. Neurological: Alert, appropriate, and interactive. The patient has normal DTRs and non-focal cranial nerves, motor, sensory, and cerebellar exam. Skin: No rashes, good turgor, no nodules on palpation. Past medical history: Prior medical records reviewed by myself, including recent admission on 10/04/2016. PMH includes: Coronary artery disease, bipolar disorder, chronic hyponatremia, COPD, fibromyalgia with chronic pain, osteoporosis, hypothyroidism, history of colon cancer. Past surgical history: Hemicolectomy, R hip ORIF, cholecystectomy, umbilical hernia x3. Family history: Non-contributory. Social history: Lives in assisted living facility. History of alcohol abuse. DIAGNOSTICS/PROCEDURES/CRITICAL CARE TIME: EKG INTERPRETATION: The 12 lead EKG was interpreted by myself: Sinus rhythm, rate 54; first degree AV block. See hard copy and/or "tracemaster" electronic copy for interpretation. DIFFERENTIAL DIAGNOSIS: Differential diagnosis for the patient's near syncope and hypotension includes but is not limited to: hyponatremia, dehydration, medication overdose, or sepsis. MEDICAL DECISION MAKING: This patient presents after an episode of near syncope while seen in Dr. Marino' s office. She is hypotensive upon arrival and appears weak with intermittent slurred speech. She has an extensive medical history for which she receives regular medication at her assisted living facility. While the patient attributes her symptoms to possible medication overdose, given the distribution of her medication by staff this seems unlikely. Medical history includes chronic hyponatremia. Will proceed with labs to investigate suspected electrolyte imbalance and/or persistent infection. Will also plan for EKG and UA. IV established. 1.5L IV NS administered. EKG obtained and is unchanged from previous. Labs obtained. WBC elevated at 22.26. Will proceed with sepsis rule out. Lactic acid is within normal range at 1.5. Chemistries obtained. The patient is hyponatremic at 118. I have slowed down the normal saline to a trickle so as not to cause a too fast rehydration and/or central pontine myelinolysis. Will proceed with admission. 1608: Consultation with Dr. Simin Bustos, hospitalist, who accepts admission. I discussed lab results with the patient who agrees with the plan for admission. - Data Points Laboratory Results: Laboratory Results 10/15/16 14:50 10/15/16 14:50 10/15/16 10/15/16 10/15/16 15:20 14:50 14:50 WBC RBC Hgb Hct MCV MCH MCHC RDW Plt Count MPV Neut % (Auto) Lymph % (Auto) [place] % (Auto) Eos % (Auto) Baso % (Auto) Nucleat RBC Rel Count Absolute Neuts (auto) Absolute Lymphs (auto) Absolute Monos (auto) Absolute Eos (auto) Absolute Basos (auto) Absolute Nucleated RBC Immature Gran % Immature Gran # Platelet Estimate Hypochromasia Target Cells Acanthocytes (Spur) Keratocytes Schistocytes PT 13.6 SEC SEC (12.0-15.0) INR 1.05 (0.83-1.16) APTT 31.9 SEC SEC (23.0-38.0) VBG Lactic Acid 1.5 mmol/L mmol/L (0.7-2.1) Sodium 118 mEq/L L* mEq/L (134-144) Potassium 3.8 mEq/L mEq/L (3.5-5.2) Chloride 87 mEq/L L mEq/L (97-110) Carbon Dioxide 18 mEq/l L mEq/l (22-31) Anion Gap 13 mEq/L mEq/L (8-16) BUN 11 mg/dL mg/dL (7-23) Creatinine 0.6 mg/dL mg/dL (0.6-1.0) Estimated GFR > 60 Glucose 99 mg/dL mg/dL (70-100) Calcium 8.5 mg/dL mg/dL (8.5-10.4) Total Bilirubin 1.3 mg/dL mg/dL (0.1-1.4) 10/15/16 14:50 WBC 22.26 10^3/uL H 10^3/uL (3.80-9.50) RBC 3.96 10^6/uL L 10^6/uL (4.18-5.33) Hgb 11.6 g/dL L g/dL (12.6-16.3) Hct 32.5 % L % (38.0-47.0) MCV 82.1 fL fL (81.5-99.8) MCH 29.3 pg pg (27.9-34.1) MCHC 35.7 g/dL g/dL (32.4-36.7) RDW 22.5 % H % (11.5-15.2) Plt Count 580 10^3/uL H 10^3/uL (150-400) MPV 8.7 fL fL (8.7-11.7) Neut % (Auto) 89.0 % H % (39.3-74.2) Lymph % (Auto) 5.6 % L % (15.0-45.0) [place] % (Auto) 4.4 % L % (4.5-13.0) Eos % (Auto) 0.0 % L % (0.6-7.6) Baso % (Auto) 0.2 % L % (0.3-1.7) Nucleat RBC Rel Count 0.0 % % (0.0-0.2) Absolute Neuts (auto) 19.82 10^3/uL H 10^3/uL (1.70-6.50) Absolute Lymphs (auto) 1.24 10^3/uL 10^3/uL (1.00-3.00) Absolute Monos (auto) 0.99 10^3/uL H 10^3/uL (0.30-0.80) Absolute Eos (auto) 0.00 10^3/uL L 10^3/uL (0.03-0.40) Absolute Basos (auto) 0.04 10^3/uL 10^3/uL (0.02-0.10) Absolute Nucleated RBC 0.00 10^3/uL 10^3/uL (0-0.01) Immature Gran % 0.8 % % (0.0-1.1) Immature Gran # 0.17 10^3/uL H 10^3/uL (0.00-0.10) Platelet Estimate INCREASED H (ADEQ) Hypochromasia 1+ H Target Cells 1+ H Acanthocytes (Spur) 1+ H Keratocytes 1+ H Schistocytes 1+ H PT INR APTT VBG Lactic Acid Sodium Potassium Chloride Carbon Dioxide Anion Gap BUN Creatinine Estimated GFR Glucose Calcium Total Bilirubin Medications Given: Discontinued Medications Sodium Chloride (Ns) 500 mls @ 0 mls/hr IV ONCE ONE PRN Reason: As Directed Stop: 10/15/16 15:01 Last Admin: 10/15/16 15:12 Dose: 500 mls Sodium Chloride (Ns) 1,000 mls @ 0 mls/hr IV ONCE ONE PRN Reason: Wide Open Stop: 10/15/16 15:14 Last Admin: 10/15/16 15:19 Dose: 500 mls Departure - Departure Disposition: [facility] Acute Clinical Impression: Hyponatremia Leukocytosis Qualifiers: Leukocytosis type: unspecified Qualified Code(s): D72.829 - Elevated white blood cell count, unspecified Hypotension Qualifiers: Hypotension type: other hypotension type Qualified Code(s): I95.89 - Other hypotension Condition: Fair Report Scribed for: Keegan Vee Report Scribed by: Donna Peacock Date of Report: 10/15/16 Time of Report: 15:06
--- NOTE | 2016-10-15 15:10 | CPEKG ---
Heart Rate: 54 RR Interval: 1111 P-R Interval: 224 QRSD Interval: 84 QT Interval: 500 QTC Interval: 474 P Castana: 59 QRS Castana: 59 T Wave Castana: 15 EKG Severity - ABNORMAL ECG - EKG Impression: SINUS RHYTHM EKG Impression: FIRST DEGREE AV BLOCK Electronically Signed By: Keegan Vee 15-Oct-2016 22:18:22
[2016-10-15] MEDS ORDERED: NS 1,000 ML IV ONE (15:13)
[2016-10-15 15:22] LABS: % IMMATURE GRANULYOCYTES 0.8 % (0.0-1.1); ABSOLUTE IMMATURE GRANULOCYTES 0.17 10^3/uL (0.00-0.10); ADD DIFF? NO; ADD MORPH? YES; ADD SCAN? NO; ATYPICAL LYMPHOCYTE FLAG 10 (0-99); FRAGMENT RBC FLAG 20 (0-99); HEMATOCRIT 32.5 % (38.0-47.0); HEMOGLOBIN 11.6 g/dL (12.6-16.3); LEFT SHIFT FLG 0 (0-99); LIPEMIA HEMOLYSIS FLAG 90 (0-99); MEAN CELL HEMOGLOBIN 29.3 pg (27.9-34.1); MEAN CELL HEMOGLOBIN CONCENTR. 35.7 g/dL (32.4-36.7); MEAN CELL VOLUME 82.1 fL (81.5-99.8); MEAN PLATELET VOLUME 8.7 fL (8.7-11.7); PLATELET CLUMPS FLAG 10 (0-99); PLATELET COUNT 580 10^3/uL (150-400); RED BLOOD CELL COUNT 3.96 10^6/uL (4.18-5.33)
[2016-10-15 15:25] LABS: RED CELL DISTRIBUTION WIDTH 22.5 % (11.5-15.2)
[2016-10-15 15:32] LABS: INR 1.05 (0.83-1.16); PROTIME(PATIENT) 13.6 SEC (12.0-15.0)
[2016-10-15 15:33] LABS: ANION GAP 13 mEq/L (8-16); BILIRUBIN,TOTAL 1.3 mg/dL (0.1-1.4); CALCIUM 8.5 mg/dL (8.5-10.4); CARBON DIOXIDE 18 mEq/l (22-31); CHLORIDE 87 mEq/L (97-110); CREATININE 0.6 mg/dL (0.6-1.0); GLOMERULAR FILTRATION RATE > 60; GLUCOSE 99 mg/dL (70-100); POTASSIUM 3.8 mEq/L (3.5-5.2)
[2016-10-15 15:34] LABS: APTT 31.9 SEC (23.0-38.0)
[2016-10-15 15:57] LABS: SODIUM 118 mEq/L (134-144)
[2016-10-15 16:14] LABS: PLATELET ESTIMATE INCREASED (ADEQ)
[2016-10-15 16:15] LABS: KERATOCYTES 1+
[2016-10-15 16:16] LABS: ACANTHOCYTES 1+
[2016-10-15 16:18] LABS: HYPOCHROMIA 1+; TARGET CELLS 1+
[2016-10-15 16:19] LABS: SCHISTOCYTES 1+
[2016-10-15] MEDS ORDERED: NS 1,000 ML IV SCH (19:00)
[2016-10-15] MEDS ORDERED: ONDANSETRON 4 MG/2 ML VIAL IVP PRN (19:50)
[2016-10-15] MEDS ORDERED: NON-FORMULARY NEW DRUG (Clonazepam [Klonopin] 0.5 MG) PO PRN (19:53)
--- NOTE | 2016-10-15 20:35 | GHP ---
[f rep st] HISTORY AND PHYSICAL DATE OF ADMISSION: 10/15/2016 CHIEF COMPLAINT: Weakness, dizziness. HISTORY OF PRESENT ILLNESS: This is a 66-year-old female who has a known history of hyponatremia an d SIADH. She was recently admitted to the hospital about a week ago for viral bronchitis and reacti ve airway disease. She was not started on antibiotics but was given prednisone which she has finish ed. Her breathing is actually okay, but she was in Dr. Dubon's office getting a hernia looked at, a nd when she stood up, she felt dizzy, and thus she came to the emergency department. She states she has been having diarrhea for the last several days and has been nauseated and with decreased p.o. i ntake. She does not have any fevers or chills. Her blood pressure was low at Dr. Dubon's office at 67/41. She had no chest pain. No shortness of breath. No wheezing. No dysuria. REVIEW OF SYSTEMS: A 10-point review of systems is obtained. She does have chronic pain due to mul tiple conditions, but other than stated above is negative. PAST MEDICAL HISTORY: 1. Bipolar. 2. Chronic hyponatremia. 3. Scleroderma/CREST/fibromyalgia. 4. Coronary artery disease. 5. Osteoporosis. 6. Hypothyroidism. 7. History of colon cancer. 8. History of alcohol abuse. 9. COPD. SOCIAL HISTORY: Smokes E-cigarettes. Lives in assisted living. FAMILY HISTORY: Reviewed and noncontributory. PHYSICAL EXAMINATION: VITAL SIGNS: Afebrile. Blood pressure is 109/59, heart rate 70, oxygen satu ration is 96% on room air. GENERAL: The patient is well developed, in no apparent distress. HEENT : Nonicteric sclerae. Extraocular movements intact. Slightly dry mucous membranes. NECK: Supple . No thyromegaly. LUNGS: Good effort with pretty good air movement with no wheezes. CARDIOVASCUL AR: Regular rate and rhythm. No murmurs or gallops. ABDOMEN: Positive bowel sounds. Soft. Some mild epigastric tenderness. No rebound or guarding. EXTREMITIES: No clubbing, cyanosis, or edema . SKIN: Without rash. Warm, dry, and intact. NEUROLOGIC: Alert and oriented x3. Moves all 4 ex tremities equally. PSYCHIATRIC: Normal affect. LABORATORIES: Her white blood cell count is elevated at 22, hemoglobin 11, platelets are 580. Sodi um 118 with a discharge sodium of 132. EKG was personally reviewed and interpreted. It shows deena l sinus rhythm with a first-degree AV block. ASSESSMENT: This is a 66-year-old female presenting with acute on chronic hyponatremia. 1. Hyponatremia. This is most likely due to her prior chronic syndrome of inappropriate antidiuret ic hormone along with low solute and dehydration. She has received 500 mL of IV fluids in the ER. We will gently hydrate overnight. I am going to check another sodium in an hour or so just to see w here she is at and if she is correcting too fast. 2. Hypertension. This most likely due to volume depletion due from her diarrhea. Again, we will g kati IV fluids as above. 3. Diarrhea. Even though she is not on an antibiotic, she was hospitalized and she has an elevated white blood cell count, which is all concerning for Clostridium difficile colitis. Because of this , I am going to empirically treat her until we get her Clostridium difficile back. 4. Bipolar. This is stable. 5. Recent viral bronchitis and reactive airway disease. This seems to be a lot better. Her lungs sound really clear. DISPOSITION: Admission. Patient being admitted to observation status. Case discussed with ER kelly penn. Old records were reviewed and summarized in the HPI. /[id number]/MODL
[2016-10-15 21:09] LABS: COLOR YELLOW; LEUKOCYTE ESTERASE,URINE 2+ (NEGATIVE); NITRITE,URINE POSITIVE (NEGATIVE)
[2016-10-15 21:24] LABS: BACTERIA 3+ /hpf (NONE SEEN); MUCUS TRACE /lpf (NONE-1+); WBC,URINE 25-50 /hpf (0-3)
[2016-10-15 21:45] LABS: ANION GAP 8 mEq/L (8-16); CALCIUM 8.3 mg/dL (8.5-10.4); CARBON DIOXIDE 21 mEq/l (22-31); CHLORIDE 91 mEq/L (97-110); CREATININE 0.5 mg/dL (0.6-1.0); GLOMERULAR FILTRATION RATE > 60; GLUCOSE 96 mg/dL (70-100); POTASSIUM 3.6 mEq/L (3.5-5.2); SODIUM 120 mEq/L (134-144)
[2016-10-15] MEDS: VANCOMYCIN 125 MG/2.5 ML UDL PO SCH (21:47)
[2016-10-15] MEDS: PANTOPRAZOLE SODIUM 40 MG TAB PO SCH (21:47)
[2016-10-15] MEDS: PRAVASTATIN SODIUM 20 MG TAB PO SCH (21:47)
[2016-10-15] MEDS: oxyCODONE IR 5 MG TAB PO PRN (21:49)
[2016-10-15] MEDS: tiZANidine HCL 2 MG TAB PO PRN (21:50)
[2016-10-15] MEDS: ONDANSETRON DISINTEGRATING 4 MG TAB PO PRN (21:53)
[2016-10-16] MEDS: ONDANSETRON DISINTEGRATING 4 MG TAB PO PRN ×3 (04:55→15:58)
[2016-10-16] MEDS: ACETAMINOPHEN 325 MG TAB PO PRN ×3 (04:55→19:57)
[2016-10-16] MEDS: VANCOMYCIN 125 MG/2.5 ML UDL PO SCH ×4 (04:55→19:57)
[2016-10-16 05:48] LABS: % IMMATURE GRANULYOCYTES 0.9 % (0.0-1.1); ABSOLUTE IMMATURE GRANULOCYTES 0.12 10^3/uL (0.00-0.10); ADD DIFF? NO; ADD MORPH? YES; ADD SCAN? NO; ATYPICAL LYMPHOCYTE FLAG 10 (0-99); FRAGMENT RBC FLAG 20 (0-99); HEMATOCRIT 28.4 % (38.0-47.0); HEMOGLOBIN 9.9 g/dL (12.6-16.3); LEFT SHIFT FLG 10 (0-99); LIPEMIA HEMOLYSIS FLAG 90 (0-99); MEAN CELL HEMOGLOBIN 29.1 pg (27.9-34.1); MEAN CELL HEMOGLOBIN CONCENTR. 34.9 g/dL (32.4-36.7); MEAN CELL VOLUME 83.5 fL (81.5-99.8); MEAN PLATELET VOLUME 8.5 fL (8.7-11.7); PLATELET CLUMPS FLAG 0 (0-99); PLATELET COUNT 446 10^3/uL (150-400)
[2016-10-16 06:08] LABS: ALANINE AMINOTRANSFERASE 89 IU/L (9-52); ALBUMIN 2.7 g/dL (3.5-5.0); ALKALINE PHOSPHATASE 128 IU/L (38-126); ANION GAP 7 mEq/L (8-16); ASPARTATE AMINOTRANSFERASE 119 IU/L (14-46); BILIRUBIN,TOTAL 0.9 mg/dL (0.1-1.4); CALCIUM 8.1 mg/dL (8.5-10.4); CARBON DIOXIDE 18 mEq/l (22-31); CHLORIDE 97 mEq/L (97-110); CREATININE 0.4 mg/dL (0.6-1.0); GLOMERULAR FILTRATION RATE > 60; GLUCOSE 85 mg/dL (70-100); RED CELL DISTRIBUTION WIDTH 22.5 % (11.5-15.2); SODIUM 122 mEq/L (134-144); TOTAL PROTEIN 5.4 g/dL (6.3-8.2)
[2016-10-16 06:31] LABS: HYPOCHROMIA 1+; KERATOCYTES 1+; MACROCYTES 1+; MICROCYTES 1+; PLATELET ESTIMATE ADEQUATE (ADEQ); TARGET CELLS 1+
--- NOTE | 2016-10-16 08:28 | HOSPPROG ---
Hospitalist Progress Note Assessment/Plan: #Hypovolemic hyponatremia/SIADH: known h/o SIADH, but was dehydrated here on admission, thus was gently hydrated. Na 125. Will hold off on more fluids and cont home salt tabs. Fluid restriction #Leukocytosis: improved on abx #UTI: IV CTX, culture pending. Blood cx NGTD #Transaminitis: likely due to hypovolemia. Trend in AM #Scleroderma/CREST/fibromyalgia: home meds CAD: statin, Plavix #Hypothyroidism: LT4 #COPD: no acute exacerbation #Diet: regular #DVT ppx: Lovenox #Disp: warrants inpatient admission with severe hyponatremia, cont serial BMP Subjective: feeling better Objective: Vital Signs Temp Pulse Resp BP Pulse Ox 36.4 C 58 L 16 105/48 L 94 10/16/16 04:00 10/16/16 04:00 10/16/16 04:00 10/16/16 04:00 10/16/16 04:00 Laboratory Results 10/16/16 05:30 10/16/16 05:30 10/15/16 10/16/16 10/17/16 05:59 05:59 05:59 Intake Total 1000 Output Total 700 Balance 300 PT 13.6 SEC (12.0-15.0) 10/15/16 14:50 INR 1.05 (0.83-1.16) 10/15/16 14:50 - Physical Exam Constitutional: no apparent distress Eyes: PERRL Ears, Nose, Mouth, Throat: dry mucous membranes Cardiovascular: regular rate and rhythym, no murmur, rub, or gallop Respiratory: no respiratory distress, no rales or rhonchi Gastrointestinal: normoactive bowel sounds, soft, non-tender abdomen Genitourinary: no bladder fullness Skin: warm Musculoskeletal: full muscle strength Neurologic: AAOx3 ICD10 Worksheet Patient Problems: Problems Problem Status Onset Hyponatremia Acute Hypotension Acute Leukocytosis Acute Abdominal pain Acute Colon adenocarcinoma Acute Hyponatremia syndrome Acute Hypoxia Acute Lower respiratory infection Acute Periumbilical hernia Acute Small bowel obstruction Acute
[2016-10-16] MEDS ORDERED: Lamotrigine [Lamictal Xr] 300 MG PO SCH (09:00)
[2016-10-16] MEDS: FLUoxetine 20 MG CAP PO SCH (09:56)
[2016-10-16] MEDS: CLOPIDOGREL BISULFATE 75 MG TAB PO SCH (10:01)
[2016-10-16] MEDS: ENOXAPARIN 40 MG/0.4 ML SYR SC SCH (10:01)
[2016-10-16] MEDS: SODIUM CHLORIDE 1,000 MG TAB PO SCH ×3 (10:03→18:33)
[2016-10-16] MEDS: tiZANidine HCL 2 MG TAB PO PRN ×2 (11:40→18:37)
[2016-10-16] MEDS: lamoTRIgine 100 MG TAB PO SCH ×2 (11:41→19:56)
[2016-10-16 12:19] LABS: ANION GAP 9 mEq/L (8-16); CALCIUM 8.2 mg/dL (8.5-10.4); CARBON DIOXIDE 19 mEq/l (22-31); CHLORIDE 97 mEq/L (97-110); CREATININE 0.5 mg/dL (0.6-1.0); GLOMERULAR FILTRATION RATE > 60; GLUCOSE 96 mg/dL (70-100); POTASSIUM 3.7 mEq/L (3.5-5.2); SODIUM 125 mEq/L (134-144)
[2016-10-16] MEDS: oxyCODONE IR 5 MG TAB PO PRN (14:59)
[2016-10-16] MEDS ORDERED: PANTOPRAZOLE SODIUM 20 MG PO SCH (18:00)
[2016-10-16] MEDS ORDERED: NON-FORMULARY NEW DRUG (Simvastatin [Zocor 10 Mg] 10 MG) PO SCH (18:00)
[2016-10-16] MEDS: PRAVASTATIN SODIUM 20 MG TAB PO SCH (18:33)
[2016-10-16] MEDS: CARIPRAZINE HYDROCHLORIDE 3 MG PO SCH (18:33)
[2016-10-16] MEDS: PANTOPRAZOLE SODIUM 40 MG TAB PO SCH (18:34)
[2016-10-17] MEDS: ACETAMINOPHEN 325 MG TAB PO PRN ×2 (01:06→22:33)
[2016-10-17] MEDS: tiZANidine HCL 2 MG TAB PO PRN ×3 (02:13→19:43)
[2016-10-17] MEDS: oxyCODONE IR 5 MG TAB PO PRN ×2 (03:47→18:11)
[2016-10-17] MEDS: VANCOMYCIN 125 MG/2.5 ML UDL PO SCH ×4 (05:12→19:43)
[2016-10-17] MEDS ORDERED: LEVOTHYROXINE 75 MCG TAB PO SCH (06:00)
[2016-10-17 06:05] LABS: HEMATOCRIT 28.5 % (38.0-47.0); MEAN CELL VOLUME 83.3 fL (81.5-99.8); RED BLOOD CELL COUNT 3.42 10^6/uL (4.18-5.33)
[2016-10-17 06:16] LABS: HEMOGLOBIN 9.9 g/dL (12.6-16.3); MEAN CELL HEMOGLOBIN 28.9 pg (27.9-34.1); MEAN CELL HEMOGLOBIN CONCENTR. 34.7 g/dL (32.4-36.7)
[2016-10-17 06:25] LABS: RED CELL DISTRIBUTION WIDTH 23.3 % (11.5-15.2)
[2016-10-17 06:28] LABS: ALANINE AMINOTRANSFERASE 184 IU/L (9-52); ALBUMIN 2.7 g/dL (3.5-5.0); ALKALINE PHOSPHATASE 129 IU/L (38-126); ANION GAP 10 mEq/L (8-16); ASPARTATE AMINOTRANSFERASE 232 IU/L (14-46); BILIRUBIN,TOTAL 0.7 mg/dL (0.1-1.4); CALCIUM 8.5 mg/dL (8.5-10.4); CARBON DIOXIDE 17 mEq/l (22-31); CHLORIDE 98 mEq/L (97-110); CREATININE 0.4 mg/dL (0.6-1.0); GLOMERULAR FILTRATION RATE > 60; GLUCOSE 92 mg/dL (70-100); POTASSIUM 3.9 mEq/L (3.5-5.2); SODIUM 125 mEq/L (134-144); TOTAL PROTEIN 5.6 g/dL (6.3-8.2)
[2016-10-17] MEDS ORDERED: NS 1,000 ML IV SCH ×2 (09:45→18:30)
[2016-10-17] MEDS: FLUoxetine 20 MG CAP PO SCH (09:58)
[2016-10-17] MEDS: SODIUM CHLORIDE 1,000 MG TAB PO SCH ×3 (09:58→18:12)
[2016-10-17] MEDS: lamoTRIgine 100 MG TAB PO SCH ×2 (09:59→19:44)
[2016-10-17] MEDS: CLOPIDOGREL BISULFATE 75 MG TAB PO SCH (10:00)
[2016-10-17] MEDS: ENOXAPARIN 40 MG/0.4 ML SYR SC SCH (10:01)
[2016-10-17] MEDS: clonazePAM 0.5 MG TAB PO PRN (10:07)
--- NOTE | 2016-10-17 15:50 | HOSPPROG ---
Hospitalist Progress Note Assessment/Plan: #Hypovolemic hyponatremia/SIADH: known h/o SIADH, but was dehydrated here on admission -still 125. Appears to need more volume. Will give 500ml gently. Repeating BMP today. Fluid restriction, home salt tabs -urine lytes pending #Leukocytosis: resolved #UTI: IV CTX, culture pending. Blood cx NGTD #Transaminitis: up today. Suspect due to hypovolemia #Scleroderma/CREST/fibromyalgia: home meds CAD: statin, Plavix #Hypothyroidism: LT4 #COPD: no acute exacerbation #Diet: regular #DVT ppx: Lovenox #Disp: warrants inpatient admission with severe hyponatremia, cont serial BMP Subjective: feeling better. No diarrhea Objective: Vital Signs Temp Pulse Resp BP Pulse Ox 36.3 C 59 L 18 89/43 L 92 10/17/16 11:29 10/17/16 11:29 10/17/16 11:29 10/17/16 11:29 10/17/16 11:29 Laboratory Results 10/17/16 05:51 10/17/16 05:51 10/16/16 10/17/16 10/18/16 05:59 05:59 05:59 Intake Total 100 Output Total 300 Balance -200 PT 13.6 SEC (12.0-15.0) 10/15/16 14:50 INR 1.05 (0.83-1.16) 10/15/16 14:50 - Physical Exam Constitutional: no apparent distress Eyes: PERRL Ears, Nose, Mouth, Throat: moist mucous membranes Cardiovascular: regular rate and rhythym, no murmur, rub, or gallop Respiratory: no respiratory distress, no rales or rhonchi Gastrointestinal: normoactive bowel sounds, soft, non-tender abdomen, no palpable masses Genitourinary: no bladder fullness, no bladder tenderness Skin: other (mild tenting of skin) Musculoskeletal: full muscle strength Neurologic: AAOx3 ICD10 Worksheet Patient Problems: Problems Problem Status Onset Hyponatremia Acute Hypotension Acute Leukocytosis Acute Abdominal pain Acute Colon adenocarcinoma Acute Hyponatremia syndrome Acute Hypoxia Acute Lower respiratory infection Acute Periumbilical hernia Acute Small bowel obstruction Acute
[2016-10-17 16:58] LABS: ANION GAP 10 mEq/L (8-16); CALCIUM 8.3 mg/dL (8.5-10.4); CARBON DIOXIDE 18 mEq/l (22-31); CHLORIDE 98 mEq/L (97-110); CREATININE 0.5 mg/dL (0.6-1.0); GLOMERULAR FILTRATION RATE > 60; GLUCOSE 117 mg/dL (70-100); POTASSIUM 3.6 mEq/L (3.5-5.2); SODIUM 126 mEq/L (134-144)
[2016-10-17] MEDS: PRAVASTATIN SODIUM 20 MG TAB PO SCH (18:12)
[2016-10-17] MEDS: PANTOPRAZOLE SODIUM 40 MG TAB PO SCH (18:12)
[2016-10-17] MEDS: CARIPRAZINE HYDROCHLORIDE 3 MG PO SCH (19:16)
[2016-10-18] MEDS: VANCOMYCIN 125 MG/2.5 ML UDL PO SCH ×2 (05:01→12:18)
[2016-10-18] MEDS: tiZANidine HCL 2 MG TAB PO PRN ×2 (06:13→14:53)
[2016-10-18 06:18] LABS: ALANINE AMINOTRANSFERASE 148 IU/L (9-52); ALBUMIN 2.5 g/dL (3.5-5.0); ALKALINE PHOSPHATASE 113 IU/L (38-126); ANION GAP 7 mEq/L (8-16); ASPARTATE AMINOTRANSFERASE 109 IU/L (14-46); BILIRUBIN,TOTAL 0.5 mg/dL (0.1-1.4); CALCIUM 8.3 mg/dL (8.5-10.4); CARBON DIOXIDE 20 mEq/l (22-31); CHLORIDE 102 mEq/L (97-110); CREATININE 0.5 mg/dL (0.6-1.0); GLOMERULAR FILTRATION RATE > 60; GLUCOSE 78 mg/dL (70-100); POTASSIUM 4.3 mEq/L (3.5-5.2); SODIUM 129 mEq/L (134-144); TOTAL PROTEIN 4.9 g/dL (6.3-8.2)
[2016-10-18 08:20] VITALS: RESP 16; O2SAT 94
[2016-10-18] MEDS: oxyCODONE IR 5 MG TAB PO PRN (08:37)
[2016-10-18] MEDS: CLOPIDOGREL BISULFATE 75 MG TAB PO SCH (08:37)
[2016-10-18] MEDS: SODIUM CHLORIDE 1,000 MG TAB PO SCH ×2 (08:37→12:17)
[2016-10-18] MEDS: FLUoxetine 20 MG CAP PO SCH (08:37)
[2016-10-18] MEDS: lamoTRIgine 100 MG TAB PO SCH (08:37)
[2016-10-18] MEDS: ENOXAPARIN 40 MG/0.4 ML SYR SC SCH (08:37)
[2016-10-18] MEDS: clonazePAM 0.5 MG TAB PO PRN (08:44)
[2016-10-18 11:26] VITALS: BP 101/49; PULSE 61; TEMP 98
--- NOTE | 2016-10-18 13:22 | PDIAF ---
- Diagnosis Diagnosis: hyponatremia, lung nodule Code Status: Full Code - Medication Management Discharge Medications: Medications to Continue on Transfer Clopidogrel Bisulfate [Plavix (*)] 75 mg PO DAILY #14 tab 04/16/14 [Last Taken 10/15/16] Cholecalciferol Vit D3 [Vitamin D3 (*)] 2,000 units PO DAILY18 06/21/16 [Last Taken 10/14/16] Eszopiclone [Lunesta] 2 mg PO HS 06/21/16 [Last Taken 10/14/16] FLUoxetine [Prozac 20 MG (*)] 40 mg PO DAILY 06/21/16 [Last Taken 10/15/16] Pantoprazole Sodium 20 mg PO DAILY@18 06/21/16 [Last Taken 10/14/16] Simvastatin [Zocor 10 mg] 10 mg PO DAILY18 06/21/16 [Last Taken 10/14/16] Levothyroxine [Synthroid 75 mcg (*)] 75 mcg PO TH@06 08/22/16 [Last Taken ] Sodium Chloride [Salt Tablet] 1,000 mg PO TIDMEAL tab 08/27/16 [Last Taken 12:00] oxyCODONE IR [Oxycodone Ir (*)] 5 mg PO Q12H PRN 09/13/16 [Last Taken 10/15/16 01:44] lamOTRIGine [LamICTAL XR] 300 mg PO DAILY 10/04/16 [Last Taken 10/15/16] tiZANidine HCL [Zanaflex 2MG (*)] 2 mg PO Q8HRS PRN 10/04/16 [Last Taken 01:18] Acetaminophen [Tylenol 325mg (*)] 650 mg PO Q4HRS PRN #0 tab 10/06/16 [Last Taken Unknown] Cariprazine Hydrochloride [Vraylar] 3 mg PO DAILY@18 10/15/16 [Last Taken ] clonAZEPAM [Klonopin] 0.5 mg PO Q12H PRN 10/15/16 [Last Taken 10/07/16 20:02] Discharge Medications: Refer to the Discharge Home Medication list for PRN reason. - Orders Services needed: Physical Therapy, Occupational Therapy Diet Recommendation: no restrictions on diet Additional: Needs follow up chest CT in 3 months to follow LLL pulmonary nodule - Follow Up Care Current Providers and Referrals: Fernanda Mcfadden MD [Primary Care Provider] - As per Instructions
--- NOTE | 2016-10-18 21:20 | GDS ---
[f rep st] DISCHARGE SUMMARY DISCHARGE DIAGNOSES: 1. Hypovolemic hyponatremia in the setting of syndrome of inappropriate antidiuretic hormone secret ion, hastened by volume depletion. In addition, her sodium levels may of dropped in the setting of an acute diarrheal illness. A Clostridium difficile was negative. Her urine sodium remained low ev en after normal saline, again suggestive of hypovolemic hyponatremia. 2. Leukocytosis, resolved. 3. Transaminitis, improved. 4. Scleroderma/calcinosis, Raynaud phenomenon, esophageal dysmotility, sclerodactyly, telangiectasi a syndrome/fibromyalgia. 5. Chronic obstructive pulmonary disease, stable. 6. Left lower lobe pulmonary nodule. HISTORY: For details please see his History and Physical dated October 15, 2016. In brief, the patie zainab is a 66-year-old female with a history of COPD and chronic hyponatremia who presented to the hosp ital from her surgeon's office after an episode of dizziness. In the emergency department, her sodi um was 118, which is a change from her baseline of the high 120s. She was admitted to the hospital for further management. HOSPITAL COURSE: The patient was admitted to the Medical-Surgical Unit. She has known chronic synd pramod of inappropriate antidiuretic hormone and presented with signs of volume depletion, in addition to likely low solute intake. She received gentle hydration with normal saline. Her sodium level s lowly trended up. She was resumed on oral salt tablets. At the time of discharge, her sodium was 1 29, which is near her baseline. Her symptoms are improved. Her chest x-ray revealed a pulmonary nodule. Therefore, a chest CT was performed for further evalua tion. This confirmed a left lower lobe ground-glass nodule. I reviewed the imaging with our pulmon ologist, Dr. Anand Babin, given her history of colon cancer. Overall, it is thought that this does no t seem particularly suspicious for a metastatic focus, though that is certainly a possibility. He r ecommended she have a followup noncontrast chest CT in 3 months to determine stability of this lesio n. In addition, she was found to have subacute left 2nd through 6th rib fractures, as well as a sub acute right humeral surgical neck fracture which has been present since May 2016. She also has a chronically dilated esophagus and chronic bronchitis and emphysema changes seen on her CT. She f elt her breathing was at baseline and there was no evidence of an acute exacerbation of her COPD. A t the time of discharge, she is 94% on room air, she has remained afebrile. There was some question of a urinary tract infection on admission, and she received 3 days of IV ceftriaxone. Antibiotics were discontinued at discharge, as her urine culture was negative for infection. Given her overall debility, arrangements were made for home health care for ongoing therapy services. DISPOSITION: The patient was discharged to her assisted-living facility in stable condition. Home health care for PT/OT is ordered. FOLLOWUP: 1. Dr. Fernanda Mcfadden, primary care provider. 2. Dr. Libby López, oncologist, for ongoing surveillance given her history of colon cancer in the setting of a new pulmonary nodule. 3. She needs a followup chest CT in 3 months. DISCHARGE MEDICATIONS: Please see [facility] for completed, updated outpatient medication list. Ther e are no new medications on discharge. /[id number]/MODL
== END 2016-10-18 15:41 | disposition home health service (06) | DRG 645 ==
LOC: INTOOBSV 16:11 → F3E 18:43 → OBSVTOIN 10-16 16:48
PROVIDERS: ADMIT Internal Medicine; ATTEND Hospitalist
DX: E22.2 Syndrome of inappropriate secretion of antidiuretic hormone (principal); E86.1 Hypovolemia; M34.1 CR(E)ST syndrome; J44.9 Chronic obstructive pulmonary disease, unspecified; R91.1 Solitary pulmonary nodule; D72.829 Elevated white blood cell count, unspecified; F31.9 Bipolar disorder, unspecified; I25.10 Atherosclerotic heart disease of native coronary artery without angina pectoris; M81.0 Age-related osteoporosis without current pathological fracture; E03.9 Hypothyroidism, unspecified; F17.210 Nicotine dependence, cigarettes, uncomplicated; I10 Essential (primary) hypertension; Z85.038 Personal history of other malignant neoplasm of large intestine; Z79.02 Long term (current) use of antithrombotics/antiplatelets
CPT/HCPCS: 97162-GP; 97165-GO; G0378; G8978-GP-CL; G8979-GP-CI; G8987-GO-CI; G8988-GO-CI; G8989-GO-CI; J0696; J1650

== ENCOUNTER 2016-10-27 04:43 | Inpatient (IN) | payer OTHER ==
--- NOTE | 2016-10-27 04:50 | EDPHY ---
H & P HPI/ROS: HPI CHIEF COMPLAINT: Hyponatremia HISTORY OF PRESENT ILLNESS: This patient very pleasant 66-year-old female significant multiple medical problems including CREST syndrome, COPD, SVT, depression, coronary artery disease, Raynaud's, Sjogren's, scleroderma, cecal cancer, recent hospitalization on October 18 for volume depletion diarrhea SIADH , hyponatremia, presents emergency room by EMS this evening at 5 o'clock in the morning, stating that she has had generalized weakness, shakiness, nausea, feels as if her sodium is low again. She denies any chest pain, shortness of breath, fever, vomiting, abdominal pain. She tells me she has diffuse body pain which is chronic for her. Past Medical History: Multiple medical problems including crest syndrome, depression, COPD, bipolar disorder, SVT, coronary artery disease, SIADH, hyponatremia Past Surgical History: Hemicolectomy, right hip surgery, cholecystectomy Social History: Denies daily use of drugs alcohol tobacco products Family History:Noncontributory ROS REVIEW OF SYSTEMS: A comprehensive 10 point review of systems is otherwise negative aside from elements mentioned in the history of present illness. Exam Constitutional appears well nontoxic, triage nursing summary reviewed, vital signs reviewed, awake/alert. Eyes normal conjunctivae and sclera, EOMI, PERRLA. HENT normal inspection, atraumatic, moist mucus membranes, no epistaxis, neck supple/ no meningismus, no raccoon eyes. Respiratory clear to auscultation bilaterally, normal breath sounds, no respiratory distress, no wheezing. Cardiovascular rate normal, regular rhythm, no murmur, no edema, distal pulses normal. Gastrointestinal soft, non-tender, no rebound, no guarding, normal bowel sounds, no distension, no pulsatile mass. Genitourinary no CVA tenderness. Musculoskeletal no midline vertebral tenderness, full range of motion, no calf swelling, no tenderness of extremities, no meningismus, good pulses, neurovascularly intact. Skin pink, warm, & dry, no rash, skin atraumatic. Neurologic awake, alert and oriented x 3, AAOx3, moves all 4 extremities equally, motor intact, sensory intact, CN II-XII intact, normal cerebellar, normal vision, normal speech. Psychiatric normal mood/affect. Heme/Lymph/Immune no lymphadenopathy. Differential Diagnosis: Includes but is not limited to in a particular order hyponatremia, dehydration, SIADH, other electrolyte disturbance, sepsis Medical Decision Making: Plan for this patient she is this feeling lightheadedness, shaky, generalized weakness, feels like her sodium is low again will repeat blood work will give her leave 500 cc IV fluid normal saline bolus and re-evaluate. Re-evaluation: EKG interpretation by me on record in [employer] system. Impression time of EKG 5:12 a.m., this is sinus rhythm rate of 85, PVC present, T-wave abnormality V1 V2 V3 borderline prolonged QT 420. Otherwise unremarkable. No acute ischemic change. Source: Patient, EMS - Personal History Tetanus Vaccine Date: unsure - Medical/Surgical History Hx Asthma: No Hx Chronic Respiratory Disease: Yes Hx Diabetes: No Hx Cardiac Disease: Yes Hx Renal Disease: No Hx Cirrhosis: No Hx Alcoholism: No Hx HIV/AIDS: No Hx Splenectomy or Spleen Trauma: No Other PMH: pmh- cecal CA, scleroderma, sjogrens, raynauds, resp failure 2/2 COPD , Bipolar, SVT, severe deperssion, CAD, 50-60% R internal carotid stenosis, 70- 80% L internal carotid stenosis. psh- hemicolectomy, R hip ORIF, maikol, umbilical hernia x3 - Social History Smoking Status: Former smoker Constitutional: Initial Vital Signs Temperature (C) 36.6 C 10/27/16 04:52 Heart Rate 85 10/27/16 04:52 Respiratory Rate 16 10/27/16 04:52 Blood Pressure 185/94 H 10/27/16 04:52 O2 Sat (%) 96 10/27/16 04:52 O2 Delivery Mode Room Air Allergies/Adverse Reactions: lorazepam [From Ativan] Allergy (Severe, Verified 10/27/16 04:52) fluconazole [From Diflucan] Allergy (Intermediate, Verified 10/27/16 04:52) Sulfa (Sulfonamide Antibiotics) Allergy (Intermediate, Verified 10/27/16 04:52) levofloxacin Allergy (Mild, Verified 10/27/16 04:52) Other-Enter Comments Penicillins Allergy (Unknown, Verified 10/27/16 04:52) Unknown haloperidol [From Haldol] Allergy (Verified 10/27/16 04:52) haloperidol lactate [From Haldol] Allergy (Verified 10/27/16 04:52) Quinolones Allergy (Verified 10/27/16 04:52) zolpidem tartrate [From Ambien] Allergy (Verified 10/27/16 04:52) Other-Enter Comments Home Medications: Medication Instructions Recorded Clopidogrel Bisulfate [Plavix (*)] 75 mg PO DAILY #14 tab 04/16/14 Cholecalciferol Vit D3 [Vitamin D3 2,000 units PO DAILY18 06/21/16 (*)] Eszopiclone [Lunesta] 2 mg PO HS 06/21/16 FLUoxetine [Prozac 20 MG (*)] 40 mg PO DAILY 06/21/16 Pantoprazole Sodium 20 mg PO DAILY@18 06/21/16 Simvastatin [Zocor 10 mg] 10 mg PO DAILY18 06/21/16 Levothyroxine [Synthroid 75 mcg 75 mcg PO TH@06 08/22/16 (*)] Sodium Chloride [Salt Tablet] 1,000 mg PO TIDMEAL tab 08/27/16 oxyCODONE IR [Oxycodone Ir (*)] 5 mg PO Q12H PRN 09/13/16 lamoTRIgine [LamICTAL XR] 300 mg PO DAILY 10/04/16 tiZANidine HCL [Zanaflex 2MG (*)] 2 mg PO Q8HRS PRN 10/04/16 Acetaminophen [Tylenol 325mg (*)] 650 mg PO Q4HRS PRN #0 tab 10/06/16 Cariprazine HCl [Vraylar] 3 mg PO DAILY@18 10/15/16 clonAZEPAM [Klonopin] 0.5 mg PO Q12H PRN 10/15/16 Medical Decision Making - Data Points Laboratory Results: Laboratory Results 10/27/16 04:45 10/27/16 04:45 10/27/16 10/27/16 10/27/16 05:20 04:45 04:45 WBC RBC Hgb Hct MCV MCH MCHC RDW Plt Count MPV Neut % (Auto) Lymph % (Auto) Webb % (Auto) Eos % (Auto) Baso % (Auto) Nucleat RBC Rel Count Absolute Neuts (auto) Absolute Lymphs (auto) Absolute Monos (auto) Absolute Eos (auto) Absolute Basos (auto) Absolute Nucleated RBC Immature Gran % Immature Gran # Platelet Estimate PT 12.4 SEC SEC (12.0-15.0) INR 0.93 (0.83-1.16) APTT 31.4 SEC SEC (23.0-38.0) VBG Lactic Acid 0.8 mmol/L mmol/L (0.7-2.1) Sodium 119 mEq/L L* mEq/L (134-144) Potassium 3.8 mEq/L mEq/L (3.5-5.2) Chloride 84 mEq/L L mEq/L (97-110) Carbon Dioxide 20 mEq/l L mEq/l (22-31) Anion Gap 15 mEq/L mEq/L (8-16) BUN 6 mg/dL L mg/dL (7-23) Creatinine 0.4 mg/dL L mg/dL (0.6-1.0) Estimated GFR > 60 Glucose 101 mg/dL H mg/dL (70-100) Calcium 9.6 mg/dL mg/dL (8.5-10.4) Total Bilirubin 0.7 mg/dL mg/dL (0.1-1.4) Conjugated Bilirubin 0.4 mg/dL mg/dL (0.0-0.5) Unconjugated Bilirubin 0.3 mg/dL mg/dL (0.0-1.1) AST 33 IU/L IU/L (14-46) ALT 49 IU/L IU/L (9-52) Alkaline Phosphatase 188 IU/L H IU/L (38-126) Total Protein 8.7 g/dL H g/dL (6.3-8.2) Albumin 4.4 g/dL g/dL (3.5-5.0) Lipase 71.0 IU/L IU/L (23-300) 10/27/16 04:45 WBC 9.69 10^3/uL H 10^3/uL (3.80-9.50) RBC 3.97 10^6/uL L 10^6/uL (4.18-5.33) Hgb 11.5 g/dL L g/dL (12.6-16.3) Hct 32.4 % L % (38.0-47.0) MCV 81.6 fL fL (81.5-99.8) MCH 29.0 pg pg (27.9-34.1) MCHC 35.5 g/dL g/dL (32.4-36.7) RDW 21.9 % H % (11.5-15.2) Plt Count 492 10^3/uL H 10^3/uL (150-400) MPV 8.5 fL L fL (8.7-11.7) Neut % (Auto) 73.5 % % (39.3-74.2) Lymph % (Auto) 16.6 % % (15.0-45.0) Webb % (Auto) 9.1 % % (4.5-13.0) Eos % (Auto) 0.2 % L % (0.6-7.6) Baso % (Auto) 0.2 % L % (0.3-1.7) Nucleat RBC Rel Count 0.0 % % (0.0-0.2) Absolute Neuts (auto) 7.12 10^3/uL H 10^3/uL (1.70-6.50) Absolute Lymphs (auto) 1.61 10^3/uL 10^3/uL (1.00-3.00) Absolute Monos (auto) 0.88 10^3/uL H 10^3/uL (0.30-0.80) Absolute Eos (auto) 0.02 10^3/uL L 10^3/uL (0.03-0.40) Absolute Basos (auto) 0.02 10^3/uL 10^3/uL (0.02-0.10) Absolute Nucleated RBC 0.00 10^3/uL 10^3/uL (0-0.01) Immature Gran % 0.4 % % (0.0-1.1) Immature Gran # 0.04 10^3/uL 10^3/uL (0.00-0.10) Platelet Estimate Pending PT INR APTT VBG Lactic Acid Sodium Potassium Chloride Carbon Dioxide Anion Gap BUN Creatinine Estimated GFR Glucose Calcium Total Bilirubin Conjugated Bilirubin Unconjugated Bilirubin AST ALT Alkaline Phosphatase Total Protein Albumin Lipase Medications Given: Discontinued Medications Sodium Chloride (Ns) 500 mls @ 0 mls/hr IV ONCE ONE PRN Reason: Wide Open Stop: 10/27/16 04:58 Last Admin: 10/27/16 05:21 Dose: 500 mls Ondansetron HCl (Zofran) 4 mg IVP EDNOW ONE Stop: 10/27/16 04:58 Last Admin: 10/27/16 05:21 Dose: 4 mg Tizanidine HCl (Zanaflex) 2 mg PO ONCE ONE Stop: 10/27/16 05:04 Last Admin: 10/27/16 05:21 Dose: 2 mg Departure - Departure Disposition: [facility] Inpatient Acute Clinical Impression: Hyponatremia Condition: Fair Referrals: Patient,NotPresent [Unknown] - As per Instructions
[2016-10-27] MEDS ORDERED: ONDANSETRON 4 MG/2 ML VIAL IVP ONE (04:57)
[2016-10-27] MEDS ORDERED: NS 500 ML IV ONE (04:57)
[2016-10-27] MEDS ORDERED: tiZANidine HCL 2 MG TAB PO ONE (05:03)
[2016-10-27 05:08] LABS: % IMMATURE GRANULYOCYTES 0.4 % (0.0-1.1); ABSOLUTE IMMATURE GRANULOCYTES 0.04 10^3/uL (0.00-0.10); ADD DIFF? NO; ADD MORPH? YES; ADD SCAN? NO; ATYPICAL LYMPHOCYTE FLAG 10 (0-99); FRAGMENT RBC FLAG 20 (0-99); HEMATOCRIT 32.4 % (38.0-47.0); HEMOGLOBIN 11.5 g/dL (12.6-16.3); LEFT SHIFT FLG 0 (0-99); LIPEMIA HEMOLYSIS FLAG 90 (0-99); MEAN CELL HEMOGLOBIN CONCENTR. 35.5 g/dL (32.4-36.7); MEAN CELL VOLUME 81.6 fL (81.5-99.8); MEAN PLATELET VOLUME 8.5 fL (8.7-11.7); PLATELET CLUMPS FLAG 0 (0-99); PLATELET COUNT 492 10^3/uL (150-400); RED BLOOD CELL COUNT 3.97 10^6/uL (4.18-5.33)
--- NOTE | 2016-10-27 05:14 | CPEKG ---
Heart Rate: 85 RR Interval: 706 P-R Interval: 160 QRSD Interval: 84 QT Interval: 420 QTC Interval: 500 P [place]: 63 QRS [place]: 51 T Wave [place]: -2 EKG Severity - ABNORMAL ECG - EKG Impression: SINUS RHYTHM EKG Impression: VENTRICULAR PREMATURE COMPLEX EKG Impression: PROBABLE LEFT ATRIAL ABNORMALITY EKG Impression: PROBABLE LEFT VENTRICULAR HYPERTROPHY EKG Impression: BORDERLINE PROLONGED QT INTERVAL Electronically Signed By: Jonnathan Kendall 27-Oct-2016 06:41:29
[2016-10-27 05:17] LABS: RED CELL DISTRIBUTION WIDTH 21.9 % (11.5-15.2)
[2016-10-27 05:18] LABS: ALANINE AMINOTRANSFERASE 49 IU/L (9-52); ALBUMIN 4.4 g/dL (3.5-5.0); ALKALINE PHOSPHATASE 188 IU/L (38-126); ANION GAP 15 mEq/L (8-16); ASPARTATE AMINOTRANSFERASE 33 IU/L (14-46); BILIRUBIN,TOTAL 0.7 mg/dL (0.1-1.4); BILIRUBIN-CONJUGATED 0.4 mg/dL (0.0-0.5); BILIRUBIN-UNCONJUGATED 0.3 mg/dL (0.0-1.1); CALCIUM 9.6 mg/dL (8.5-10.4); CARBON DIOXIDE 20 mEq/l (22-31); CHLORIDE 84 mEq/L (97-110); CREATININE 0.4 mg/dL (0.6-1.0); GLOMERULAR FILTRATION RATE > 60; GLUCOSE 101 mg/dL (70-100); POTASSIUM 3.8 mEq/L (3.5-5.2); TOTAL PROTEIN 8.7 g/dL (6.3-8.2)
[2016-10-27 05:21] LABS: INR 0.93 (0.83-1.16); PROTIME(PATIENT) 12.4 SEC (12.0-15.0)
[2016-10-27 05:22] LABS: APTT 31.4 SEC (23.0-38.0); SODIUM 119 mEq/L (134-144)
[2016-10-27 05:36] LABS: HYPOCHROMIA 1+; MICROCYTES 1+
[2016-10-27 05:37] LABS: PLATELET ESTIMATE ADEQUATE (ADEQ)
[2016-10-27 06:03] LABS: COLOR PALE YELLOW; LEUKOCYTE ESTERASE,URINE NEGATIVE (NEGATIVE); NITRITE,URINE NEGATIVE (NEGATIVE)
[2016-10-27 06:04] LABS: MUCUS TRACE /lpf (NONE-1+)
[2016-10-27] MEDS ORDERED: ACETAMINOPHEN 325 MG TAB ONE (06:11)
[2016-10-27] MEDS ORDERED: ACETAMINOPHEN 325 MG TAB PO ONE (06:13)
[2016-10-27] MEDS ORDERED: ONDANSETRON 4 MG/2 ML VIAL IVP PRN (06:40)
[2016-10-27] MEDS ORDERED: ONDANSETRON DISINTEGRATING 4 MG TAB PO PRN (06:40)
[2016-10-27] MEDS ORDERED: LORazepam 0.5 MG TAB PO PRN (06:40)
[2016-10-27] MEDS ORDERED: oxyCODONE IR 5 MG TAB PO PRN (06:40)
--- NOTE | 2016-10-27 08:37 | GHP ---
[f rep st] HISTORY AND PHYSICAL DATE OF ADMISSION: 10/27/2016 CHIEF COMPLAINT: Nausea, vomiting, and fatigue. HISTORY OF PRESENT ILLNESS: This is a 66-year-old female, who has an extensive past medical history that includes COPD, scleroderma, and CREST, as well as chronic hyponatremia felt to be largely seco ndary to SIADH in the setting of chronic SSRI use. The patient notes that on the evening of the t she began to have nausea and vomiting which woke her from sleep. She initially thought it was sec ondary to not having taken her Zanaflex, which she had been out of for about a day. Symptoms contin ued all day on the 1st and overnight on the 2nd to the point where she was essentially unable to matt e in any fluids and was not eating or drinking anything over the last 36 hours or so. She notes she was able to hold down an Ensure. In the past when she has had these issues, she has had symptomati c hyponatremia and became concerned that she was having recurrent hyponatremia, and therefore, came to the ER for further evaluation. Her last hospitalization for similar issues was a couple weeks ag o. She does chronically take salt tabs and attempts to limit her fluid intake to less than 2 L per day, though she admits she is often noncompliant with that. PAST MEDICAL HISTORY: Includes: 1. Chronic hyponatremia secondary to SIADH and very sensitive to hypovolemia. 2. Bipolar disorder with issues with severe depression in the past. 3. COPD. 4. Scleroderma and CREST. 5. Fibromyalgia. 6. History of alcohol abuse. 7. Coronary artery disease. 8. Colon cancer. 9. Osteoporosis. 10. Hypothyroidism. 11. Sjogren's. 12. Diastolic heart failure. 13. Chronic pain with continuous opiate use and dependency. PAST SURGICAL HISTORY: Includes: 1. Cholecystectomy. 2. Right hemicolectomy. 3. Right hip surgery. 4. Multiple hernia repairs and reduction of internal hernia. FAMILY HISTORY: Reviewed and noncontributory. SOCIAL HISTORY: The patient drinks alcohol occasionally. Notes that recently she has been trying t o drink more nonalcoholic beers. She currently lives in an assisted living facility. She smokes E- cigarettes. REVIEW OF SYSTEMS: 10-point review of systems obtained and negative, except as per HPI. MEDICATIONS: 1. Tizanidine. 2. Oxycodone. 3. Lamotrigine. 4. Clonazepam. 5. Salt tabs. 6. Simvastatin. 7. Pantoprazole. 8. Levothyroxine. 9. Prozac. 10. Lunesta. 11. Plavix. 12. Vitamin D3. 13. Cariprazine. 14. Tylenol. ALLERGIES: Include multiple medications including Haldol, penicillin, levofloxacin, and Ativan. PHYSICAL EXAM: VITAL SIGNS: BP 111/61, heart rate 75, respiratory rate 16, O2 sats 96% on room air . Temperature is 36.7. GENERAL APPEARANCE: This is a thin, chronically ill-appearing female. She is in no acute distress. EYES: Anicteric. HEENT: Tacky mucous membranes. CARDIOVASCULAR: RRR, no MRG. PULMONARY: CTA bilaterally. ABDOMEN: Soft. She has a large supraumbilical ventral jesús ia which is reducible. Bowel sounds are normal. EXTREMITIES: No clubbing, cyanosis, or edema. SK IN: Warm, dry, well perfused. NEURO/PSYCH: Oriented and appropriate. CLINICAL DATA: Labs reviewed; significant for white blood cell count 9.69, hematocrit 32.4, platele ts of 492. Chemistry notable for a sodium of 119 with a baseline closer to 129. Urinalysis showing 1+ blood, but otherwise unremarkable. Coags are within normal limits. EKG personally reviewed and interpreted showing sinus rhythm. PVC is present. No significant conti e from prior. ASSESSMENT/PLAN: 66-year-old female with a history of chronic hyponatremia with multiple admissions for symptomatic hyponatremia presenting with nausea, vomiting in the setting of [id number] hy ponatremia. 1. [id number] hyponatremia. Patient with baseline SIADH secondary presumably to psychiatric medications. She is chronically on salt tabs and attempts to maintain a 2 L fluid restriction, [facility] is frequently noncompliant with that. She presents with likely worsening sodium in the setting o f hypovolemia for the last couple days. She has been given 500 cc of normal saline in the ER and a recheck on her sodium is currently pending. 2. Nausea, vomiting. Somewhat difficult to ascertain if this preceded her hyponatremia or the othe r way around. It currently seems to have resolved. P.r.n. antiemetics. Her abdominal exam is kris gn. 3. Bipolar disorder with depression, for which her Prozac has been very important in controlling he r symptoms. Therefore, unable to discontinue it despite her recurrent hyponatremia. She is current ly appearing euthymic. 4. Chronic obstructive pulmonary disease without evidence of acute exacerbation. Will continue her outpatient medications. 5. Chronic pain with continuous opiate use and dependency. She has previously had issues with with drawal, but currently is being maintained on very low-dose oxycodone. She does have an appointment to be seen by Pain Management in the coming weeks. 6. Other chronic medical problems including scleroderma, CREST, fibromyalgia, coronary artery disea se, history of colon cancer, hypothyroidism; will continue her outpatient management. 7. Disposition: Observation status. If her sodium can be corrected, she will likely be ready for discharge in less than 48 hours. 8. Patient is new to my care. Old records reviewed. Summary is as per HPI and past medical histor y. Care plan reviewed with ER physician, including plans for small saline bolus. /[id number]/MODL
[2016-10-27] MEDS: PROMETHAZINE HCL 25 MG TAB PO PRN (09:35)
[2016-10-27] MEDS: ENOXAPARIN 40 MG/0.4 ML SYR SC SCH (09:36)
[2016-10-27 13:03] LABS: ANION GAP 11 mEq/L (8-16); CARBON DIOXIDE 22 mEq/l (22-31); CHLORIDE 87 mEq/L (97-110); CREATININE 0.5 mg/dL (0.6-1.0); GLOMERULAR FILTRATION RATE > 60; GLUCOSE 106 mg/dL (70-100); SODIUM 120 mEq/L (134-144)
[2016-10-27] MEDS ORDERED: PANTOPRAZOLE SODIUM 40 MG TAB PO PRN (13:21)
[2016-10-27] MEDS ORDERED: LAMOTRIGINE 300 MG PO SCH (13:30)
--- NOTE | 2016-10-27 13:34 | HOSPPROG ---
Hospitalist Progress Note Assessment/Plan: 66-year-old with a history of SA ID H likely due to SSRIs is admitted with nausea vomiting and low sodium. On admission she appears to be hypovolemic. # hyponatremia with a sodium of 119 she was given 500 cc of normal saline in the ER in her sodium is currently 120. Will resume normal saline at 50 an hour and slowly hydrate her. Recheck sodiums every 6 hours increase fluid as needed. She does appear to be hypovolemic. # chronic pain with continue narcotic dependence from her systemic disease including scleroderma and crest syndrome. Continue Percocet as needed # bipolar disease, associated with severe debilitation. Patient needs her psychiatric medications and will not change those at this time despite her recurrent hyponatremia. # COPD: Oxygen needs are stable # fibromyalgia # hypothyroidism on replacement # history of CAD, on Plavix # osteoporosis # DVT prophylaxis on Lovenox Subjective: Chart reviewed, patient new to me. She still feels quite weak. Objective: Vital Signs Temp Pulse Resp BP Pulse Ox 36.7 C 77 17 128/73 H 95 10/27/16 12:00 10/27/16 12:00 10/27/16 12:00 10/27/16 12:00 10/27/16 12:00 Laboratory Results 10/27/16 12:35 10/26/16 10/27/16 10/28/16 05:59 05:59 05:59 Intake Total 500 Balance 500 PT 12.4 SEC (12.0-15.0) 10/27/16 04:45 INR 0.93 (0.83-1.16) 10/27/16 04:45 - Physical Exam Constitutional: chronically ill appearing, uncomfortable Eyes: PERRL Cardiovascular: regular rate and rhythym Respiratory: no respiratory distress, no rales or rhonchi, clear to auscultation Gastrointestinal: normoactive bowel sounds, soft, non-tender abdomen ICD10 Worksheet Patient Problems: Problems Problem Status Onset Hyponatremia Acute Abdominal pain Acute Colon adenocarcinoma Acute Hyponatremia syndrome Acute Hypotension Acute Hypoxia Acute Leukocytosis Acute Lower respiratory infection Acute Periumbilical hernia Acute Small bowel obstruction Acute
[2016-10-27] MEDS: NS 1,000 ML IV SCH (13:50)
[2016-10-27] MEDS: CLOPIDOGREL BISULFATE 75 MG TAB PO SCH (15:26)
[2016-10-27] MEDS: FLUoxetine 20 MG CAP PO SCH (15:26)
[2016-10-27] MEDS: SODIUM CHLORIDE 1,000 MG TAB PO SCH ×2 (15:26→20:18)
[2016-10-27] MEDS: PRAVASTATIN SODIUM 20 MG TAB PO SCH (17:18)
[2016-10-27] MEDS: CHOLECALCIFEROL VIT D3 1,000 UNITS TAB PO SCH (17:19)
[2016-10-27] MEDS: tiZANidine HCL 2 MG TAB PO PRN (17:19)
[2016-10-27] MEDS: Cariprazine Hcl [Vraylar] PO SCH (17:22)
[2016-10-27] MEDS: ACETAMINOPHEN 325 MG TAB PO PRN (17:24)
[2016-10-27] MEDS ORDERED: NON-FORMULARY NEW DRUG (Simvastatin [Zocor 10 Mg] 10 MG) PO SCH (18:00)
[2016-10-27] MEDS ORDERED: CARIPRAZINE HCL 3 MG PO SCH (18:00)
[2016-10-27 19:09] LABS: ANION GAP 7 mEq/L (8-16); CALCIUM 8.9 mg/dL (8.5-10.4); CARBON DIOXIDE 23 mEq/l (22-31); CHLORIDE 92 mEq/L (97-110); CREATININE 0.5 mg/dL (0.6-1.0); GLOMERULAR FILTRATION RATE > 60; GLUCOSE 101 mg/dL (70-100); POTASSIUM 4.4 mEq/L (3.5-5.2); SODIUM 122 mEq/L (134-144)
[2016-10-27] MEDS ORDERED: ESZOPICLONE 2 MG PO SCH (21:00)
[2016-10-27] MEDS: ESZOPICLONE PO SCH (23:19)
[2016-10-27] MEDS: oxyCODONE IR 5 MG TAB PO PRN (23:36)
[2016-10-28] MEDS: tiZANidine HCL 2 MG TAB PO PRN ×2 (02:39→10:10)
[2016-10-28] MEDS: NS 1,000 ML IV SCH ×2 (02:39→20:35)
[2016-10-28 04:32] LABS: % IMMATURE GRANULYOCYTES 0.4 % (0.0-1.1); ABSOLUTE IMMATURE GRANULOCYTES 0.03 10^3/uL (0.00-0.10); ADD DIFF? NO; ADD MORPH? YES; ADD SCAN? NO; ATYPICAL LYMPHOCYTE FLAG 20 (0-99); FRAGMENT RBC FLAG 20 (0-99); HEMATOCRIT 28.2 % (38.0-47.0); HEMOGLOBIN 9.6 g/dL (12.6-16.3); LEFT SHIFT FLG 0 (0-99); LIPEMIA HEMOLYSIS FLAG 90 (0-99); MEAN CELL HEMOGLOBIN 29.4 pg (27.9-34.1); MEAN CELL VOLUME 86.2 fL (81.5-99.8); MEAN PLATELET VOLUME 8.9 fL (8.7-11.7); PLATELET CLUMPS FLAG 0 (0-99); PLATELET COUNT 421 10^3/uL (150-400); RED BLOOD CELL COUNT 3.27 10^6/uL (4.18-5.33)
[2016-10-28 04:38] LABS: RED CELL DISTRIBUTION WIDTH 22.9 % (11.5-15.2)
[2016-10-28 04:47] LABS: ANION GAP 7 mEq/L (8-16); CALCIUM 8.6 mg/dL (8.5-10.4); CARBON DIOXIDE 18 mEq/l (22-31); CHLORIDE 96 mEq/L (97-110); CREATININE 0.5 mg/dL (0.6-1.0); GLOMERULAR FILTRATION RATE > 60; GLUCOSE 87 mg/dL (70-100); POTASSIUM 4.8 mEq/L (3.5-5.2); SODIUM 121 mEq/L (134-144)
[2016-10-28 05:04] LABS: HYPOCHROMIA 1+; MACROCYTES 1+; MICROCYTES 1+; PLATELET ESTIMATE ADEQUATE (ADEQ)
[2016-10-28] MEDS ORDERED: Lamotrigine [Lamictal Xr] 300 MG PO SCH (09:00)
[2016-10-28] MEDS: ENOXAPARIN 40 MG/0.4 ML SYR SC SCH (09:09)
[2016-10-28] MEDS: FLUoxetine 20 MG CAP PO SCH (09:10)
[2016-10-28] MEDS: SODIUM CHLORIDE 1,000 MG TAB PO SCH ×3 (09:10→20:33)
[2016-10-28] MEDS: CLOPIDOGREL BISULFATE 75 MG TAB PO SCH (09:10)
[2016-10-28] MEDS: PROMETHAZINE HCL 25 MG TAB PO PRN (10:10)
--- NOTE | 2016-10-28 12:45 | HOSPPROG ---
Hospitalist Progress Note Assessment/Plan: 66-year-old with a history of SA ID H likely due to SSRIs is admitted with nausea vomiting and low sodium. On admission she appears to be hypovolemic. # hyponatremia with a sodium of 119 on admission. She still has some nausea and has overall poor p.o. intake. She states she gets nausea from her low sodium levels but does have a little abdominal tenderness * Continue gentle IV fluids and follow sodiums closely * Push ensure and solute intake as able. May need Phenergan before meals. * Insure will not count against fluid restriction * 1500 cc fluid restriction * Patient will need additional midnight stay for treatment of her severe hyponatremia and weakness. * Check TSH, Cortrosyn stim test and head CT # nausea vomiting likely secondary to hyponatremia by history will continue to monitor. * Check abdominal CT scan, patient had small-bowel obstruction in August. # chronic pain with continue narcotic dependence from her systemic disease including scleroderma and crest syndrome. Continue Percocet as needed # bipolar disease, associated with severe debilitation. Patient needs her psychiatric medications and will not change those at this time despite her recurrent hyponatremia. # COPD: Oxygen needs are stable # fibromyalgia # hypothyroidism on replacement # history of CAD, on Plavix # osteoporosis # DVT prophylaxis on Lovenox Subjective: Still nauseated but trying to eat more. Feels a lot better today with improved energy and almost feels at baseline Objective: Vital Signs Temp Pulse Resp BP Pulse Ox 36.4 C 72 28 H 135/69 H 92 10/28/16 08:00 10/28/16 08:00 10/28/16 08:00 10/28/16 08:00 10/28/16 08:00 Laboratory Results 10/28/16 04:02 10/28/16 04:02 10/27/16 10/28/16 10/29/16 05:59 05:59 05:59 Intake Total 2910 Output Total 1450 Balance 1460 PT 12.4 SEC (12.0-15.0) 10/27/16 04:45 INR 0.93 (0.83-1.16) 10/27/16 04:45 - Physical Exam Constitutional: chronically ill appearing, uncomfortable Eyes: PERRL, anicteric sclera, EOMI Ears, Nose, Mouth, Throat: moist mucous membranes Cardiovascular: regular rate and rhythym, no murmur, rub, or gallop, No edema Respiratory: no respiratory distress, no rales or rhonchi, clear to auscultation Gastrointestinal: normoactive bowel sounds, no palpable masses, tenderness ( Minimal), No guarding, No rebound Genitourinary: no bladder fullness Skin: warm, normal color, No mottled Musculoskeletal: generalized weakness Neurologic: AAOx3 Psychiatric: interacting appropriately, not anxious, not encephalopathic ICD10 Worksheet Patient Problems: Problems Problem Status Onset Hyponatremia Acute Abdominal pain Acute Colon adenocarcinoma Acute Hyponatremia syndrome Acute Hypotension Acute Hypoxia Acute Leukocytosis Acute Lower respiratory infection Acute Periumbilical hernia Acute Small bowel obstruction Acute
[2016-10-28] MEDS: oxyCODONE IR 5 MG TAB PO PRN (13:05)
[2016-10-28] MEDS: PRAVASTATIN SODIUM 20 MG TAB PO SCH (17:24)
[2016-10-28] MEDS: CHOLECALCIFEROL VIT D3 1,000 UNITS TAB PO SCH (17:25)
[2016-10-28] MEDS: ACETAMINOPHEN 325 MG TAB PO PRN ×2 (17:28→21:12)
[2016-10-28] MEDS ORDERED: IOPAMIDOL (ISOVUE-300) 100 ML BTL IV ONE (18:15)
[2016-10-28] MEDS: Cariprazine Hcl [Vraylar] PO SCH (19:44)
[2016-10-28] MEDS: lamoTRIgine 100 MG TAB PO SCH (20:32)
[2016-10-28] MEDS: ESZOPICLONE PO SCH (21:13)
[2016-10-29] MEDS: oxyCODONE IR 5 MG TAB PO PRN ×2 (01:04→13:12)
[2016-10-29] MEDS: tiZANidine HCL 2 MG TAB PO PRN ×2 (02:10→10:39)
[2016-10-29] MEDS: ACETAMINOPHEN 325 MG TAB PO PRN ×4 (03:19→21:17)
[2016-10-29 05:00] LABS: ANION GAP 9 mEq/L (8-16); CALCIUM 8.6 mg/dL (8.5-10.4); CARBON DIOXIDE 19 mEq/l (22-31); CHLORIDE 97 mEq/L (97-110); CREATININE 0.4 mg/dL (0.6-1.0); GLOMERULAR FILTRATION RATE > 60; GLUCOSE 95 mg/dL (70-100); POTASSIUM 4.6 mEq/L (3.5-5.2); SODIUM 125 mEq/L (134-144)
[2016-10-29 05:28] LABS: CORTISOL-AM 11.8 ug/dL (4.5-22.7)
[2016-10-29] MEDS ORDERED: COSYNTROPIN 0.25 MG/2 ML SYRINGE IVP ONE (06:00)
[2016-10-29] MEDS: CLOPIDOGREL BISULFATE 75 MG TAB PO SCH (08:18)
[2016-10-29] MEDS: FLUoxetine 20 MG CAP PO SCH (08:18)
[2016-10-29] MEDS: SODIUM CHLORIDE 1,000 MG TAB PO SCH ×3 (08:18→21:17)
[2016-10-29] MEDS: ENOXAPARIN 40 MG/0.4 ML SYR SC SCH (08:19)
[2016-10-29] MEDS: lamoTRIgine 100 MG TAB PO SCH ×2 (08:19→20:17)
--- NOTE | 2016-10-29 10:58 | HOSPPROG ---
Hospitalist Progress Note Assessment/Plan: 66-year-old with a history of SA ID H likely due to SSRIs is admitted with nausea vomiting and low sodium. On admission she appears to be hypovolemic. Today she feels much better she was able to eat better yesterday afternoon and her sodium is slowly improving. # hyponatremia with a sodium of 119 on admission. She is starting to have improved oral intake * DC IV fluids * Push ensure and solute intake as able. May need Phenergan before meals. * Ensure will not count against fluid restriction * 1500 cc fluid restriction * Patient will need additional midnight stay for treatment of her severe hyponatremia and weakness. * TSH and Cortrosyn stim test were normal * Head CT shows no lesions * I suspect her hyponatremia is from SAID H from her medications exacerbated by her poor p.o. intake. Her primary care doctor will be discussing her medications with her psychiatrist. In the meantime will continue the fluid restriction salt tablets monitor her overnight off the IV fluids. # nausea vomiting likely secondary to hyponatremia by history will continue to monitor. * CT scan is improved from last visit without evidence of small-bowel obstruction # sinusitis noted on CT scan of her head. Patient is minimally symptomatic will start sinus washes and symptomatic care. No antibiotics at this time # chronic pain with continue narcotic dependence from her systemic disease including scleroderma and crest syndrome. Continue Percocet as needed # bipolar disease, associated with severe debilitation. Patient has been hospitalized previously with her medications were changed. Will defer any changes to her psychiatrist who will work as an outpatient to adjust her medications. # COPD: Oxygen needs are stable. Will add duo nebs per patient request # fibromyalgia # hypothyroidism on replacement # history of CAD, on Plavix # osteoporosis # DVT prophylaxis on Lovenox Disposition: Hyponatremia still slightly low today but improving will monitor her over night off her IV fluids on current medical management and if her sodium continues to improve she can likely be discharged in the morning. Her primary care provider's contacting her psychiatrist for med adjustments as an outpatient. I discussed her care with her flipping machine operator Dr. Portillo whom she will see as an outpatient as well. Workup this admission is negative for any specific cause for her hyponatremia and SAIDH most likely medication related, exacerbated by her poor PO intake prior to admission. Subjective: Feels better today feels like she can't eat more today Objective: Vital Signs Temp Pulse Resp BP Pulse Ox 36.3 C 84 16 138/69 H 94 10/29/16 07:36 10/29/16 07:36 10/29/16 07:36 10/29/16 07:36 10/29/16 07:36 Laboratory Results 10/29/16 04:14 10/28/16 10/29/16 10/30/16 05:59 05:59 05:59 Intake Total 2280 Output Total 0 Balance 230 PT 12.4 SEC (12.0-15.0) 10/27/16 04:45 INR 0.93 (0.83-1.16) 10/27/16 04:45 - Physical Exam Constitutional: chronically ill appearing Eyes: PERRL Cardiovascular: regular rate and rhythym, no murmur, rub, or gallop Respiratory: no respiratory distress, no rales or rhonchi, clear to auscultation Gastrointestinal: normoactive bowel sounds, soft, non-tender abdomen Neurologic: AAOx3 ICD10 Worksheet Patient Problems: Problems Problem Status Onset Hyponatremia Acute Abdominal pain Acute Colon adenocarcinoma Acute Hyponatremia syndrome Acute Hypotension Acute Hypoxia Acute Leukocytosis Acute Lower respiratory infection Acute Periumbilical hernia Acute Small bowel obstruction Acute
[2016-10-29] MEDS ORDERED: SODIUM CL NASAL 45 ML BTL EACHNARE PRN (11:04)
[2016-10-29] MEDS: IPRATROPIUM/ALBUTEROL 3 ML DEYVIAL IH SCH ×3 (11:42→22:37)
--- NOTE | 2016-10-29 12:29 | GCON ---
[f rep st] CONSULTATION NEPHROLOGY CONSULTATION DATE OF CONSULTATION: 10/29/2016 REASON FOR CONSULTATION: Hyponatremia. HISTORY OF PRESENT ILLNESS: The patient is a very pleasant 66-year-old female with a past medical h istory significant for multiple issues, including COPD, scleroderma, and chronic hyponatremia. She presents at this time with worsening of her hyponatremia. History is obtained from the medical staff, the medical record, and the patient. The patient is an excellent historian. The patient has had issues with longstanding chronic hyponatremia. She did have an admission relati ng to this last May, and received a full evaluation at that time. Since that time, she has bee n seen by Dr. Portillo as an outpatient. 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 We have felt it has be en exacerbated by her SSRI, but the patient does note she has had hyponatremia predating that medica tion. In order to stabilize her serum sodium level, she has been maintained on oral sodium chloride , Ensure shakes, and a fluid restriction. With this, her sodium has averaged typically in the 120s, although she has had occasional drops to lower numbers. The patient currently presents with a worsening of her hyponatremia in the setting of GI symptoms. She states she was doing well in her assisted living home up until last Friday. At that time, she developed nausea and vomiting. A short time later, she did develop symptoms that she associates wi th her hyponatremia. She presented with a sodium level of 119. Since that time, she has been maint ained on a tightened fluid restriction, and has had increased solute intake. With this, her sodium has gradually risen to 125. She has had a repeat cortisol stim test as well as a TSH. Both of thes e studies look good. She has had additional radiologic imaging, without evidence of malignancy. As related to the above issues, we are asked by Dr. Askew to assist the patient's renal diagnosis and management. PAST MEDICAL HISTORY: 1. Chronic hyponatremia secondary to SIADH. 2. Bipolar disorder. 3. COPD. 4. Scleroderma and CREST. 5. Fibromyalgia. 6. History of alcohol abuse. 7. Coronary artery disease. 8. Colon cancer. 9. Osteoporosis. 10. Hypothyroidism. 11. Sjogren's syndrome. 12. Diastolic heart failure. 13. Chronic pain. PAST SURGICAL HISTORY: 1. Cholecystectomy. 2. Right hemicolectomy. 3. Right hip surgery. 4. Multiple hernia repairs. FAMILY HISTORY: Noncontributory. SOCIAL HISTORY: The patient lives in an assisted living setting. She is presently not drinking alc ohol. She does use E-cigarettes. REVIEW OF SYSTEMS: This was completely negative, with the following exceptions: On admission, she did have some dizziness and achiness. She had some nausea. She has some chronic lower extremity ed francisco javier. PHYSICAL EXAMINATION: GENERAL: At the time of exam, the patient is appropriate and alert. VITAL S IGNS: Temperature afebrile, pulse 84, blood pressure 138/69. EYES: Sclerae clear. OROPHARYNX: C lear. NECK: No lymphadenopathy or thyromegaly. LUNGS: Clear to auscultation bilaterally. CARDIO VASCULAR: Regular rate and rhythm. ABDOMEN: Nontender. LOWER EXTREMITIES: Trace edema. LABORATORY STUDIES: Sodium 125, potassium 4.6, chloride 97, bicarb 19, creatinine 0.4. White count 7.8, hematocrit 28.2, platelets 421. IMPRESSION AND PLAN: 1. Exacerbation of hyponatremia. The patient appears to have underlying baseline SIADH. This stil l continues to appear to be her diagnosis. She does seem to get exacerbations when her solute intak e decreases. We have been attempting to keep her solute intake increased with sodium chloride table ts and Ensure shakes. They state the patient was on a 2 L fluid restriction at home. This is likel y too generous for her urinary concentration. We did discuss whether her SSRI could be decreased. Apparently she is very sensitive to this. We will try to pursue other measures. I do believe the b est potential therapy for her is urea. This is inexpensive and can be taken on a daily basis with raffi carballo. With this, she likely could get off her sodium chloride tablets. I have contacted the [facility] to see if we could obtain this here. Otherwise, it can be obtained as an outpatient and used in that setting. 2. Anemia. This does require further evaluation. I will discuss this with her primary service. Thank you for allowing us to participate in this lady's care. Will continue to follow closely with you. /[id number]/MODL
[2016-10-29] MEDS: PRAVASTATIN SODIUM 20 MG TAB PO SCH (17:54)
[2016-10-29] MEDS: CHOLECALCIFEROL VIT D3 1,000 UNITS TAB PO SCH (17:54)
[2016-10-29] MEDS: Cariprazine Hcl [Vraylar] PO SCH (17:55)
[2016-10-29] MEDS: ESZOPICLONE PO SCH (20:33)
[2016-10-30] MEDS: oxyCODONE IR 5 MG TAB PO PRN ×2 (01:21→13:30)
[2016-10-30] MEDS: tiZANidine HCL 2 MG TAB PO PRN ×2 (02:21→10:34)
[2016-10-30] MEDS: ACETAMINOPHEN 325 MG TAB PO PRN ×3 (03:26→15:07)
[2016-10-30] MEDS: IPRATROPIUM/ALBUTEROL 3 ML DEYVIAL IH SCH ×2 (05:41→10:16)
[2016-10-30] MEDS: FLUoxetine 20 MG CAP PO SCH (07:38)
[2016-10-30] MEDS: CLOPIDOGREL BISULFATE 75 MG TAB PO SCH (07:38)
[2016-10-30] MEDS: SODIUM CHLORIDE 1,000 MG TAB PO SCH ×2 (07:39→15:07)
[2016-10-30] MEDS: lamoTRIgine 100 MG TAB PO SCH (07:40)
[2016-10-30] MEDS: ENOXAPARIN 40 MG/0.4 ML SYR SC SCH (07:41)
[2016-10-30 12:04] LABS: ANION GAP 15 mEq/L (8-16); CALCIUM 9.3 mg/dL (8.5-10.4); CARBON DIOXIDE 19 mEq/l (22-31); CHLORIDE 92 mEq/L (97-110); CREATININE 0.4 mg/dL (0.6-1.0); GLOMERULAR FILTRATION RATE > 60; GLUCOSE 116 mg/dL (70-100); POTASSIUM 4.3 mEq/L (3.5-5.2); SODIUM 126 mEq/L (134-144)
[2016-10-30 12:40] VITALS: BP 106/53; PULSE 83; RESP 20; TEMP 98; O2SAT 98
--- NOTE | 2016-10-30 14:47 | PDDCSUM ---
Discharge Summary Discharge Summary: HPI and Hospital Course: 66-year-old with a history of SAID H likely due to SSRIs admitted with nausea vomiting and low sodium. On admission, she was hypovolemic. She was initially provided IVF. Her fluid restriction has been modified to 1500ml. She is on salt tablets. Na has improved and is now 129. No adjustments to her home medications were made. She will f/u with Nephrology in 3 weeks as she already has an appointment. She will also f/u with her PCP next week for repeat lab work. Consultants: Nephrology DX: # hyponatremia with a sodium of 119 on admission. She is starting to have improved oral intake * Ensure * 1500 cc fluid restriction * TSH and Cortrosyn stim test were normal * Head CT shows no lesions * hyponatremia is from SAID H from her medications exacerbated by her poor p.o. intake. Her primary care doctor will be discussing her medications with her psychiatrist. In the meantime will continue the fluid restriction and salt tablets monitor. # nausea vomiting likely secondary to hyponatremia by history * CT scan is improved from last visit without evidence of small-bowel obstruction # sinusitis noted on CT scan of her head. Patient is minimally symptomatic will start sinus washes and symptomatic care. No antibiotics at this time # chronic pain with continue narcotic dependence from her systemic disease including scleroderma and crest syndrome. Continue Percocet as needed # bipolar disease, associated with severe debilitation. Patient has been hospitalized previously with her medications were changed. Will defer any changes to her psychiatrist who will work as an outpatient to adjust her medications. # COPD: Oxygen needs are stable. Will add duo nebs per patient request # fibromyalgia # hypothyroidism on replacement # history of CAD, on Plavix # osteoporosis # DVT prophylaxis on Lovenox Discharge exam: vss NAD AAOX3 PERRLA EOMI MMM NO JVD RRR CTAB S/NT/ND NO LE EDEMA DISCHARGE MEDS: SEE MED REC. No changes were made Fluid restriction: 1500ml f/u: per above 38 mins spent on discharge.
--- NOTE | 2016-10-30 15:05 | PDIAF ---
- Diagnosis Diagnosis: hyponatremia Code Status: Full Code - Medication Management Discharge Medications: Medications to Continue on Transfer Clopidogrel Bisulfate [Plavix (*)] 75 mg PO DAILY #14 tab 04/16/14 [Last Taken 10/26/16] Cholecalciferol Vit D3 [Vitamin D3 (*)] 2,000 units PO DAILY18 06/21/16 [Last Taken 10/14/16] Eszopiclone [Lunesta] 2 mg PO HS 06/21/16 [Last Taken 10/26/16] FLUoxetine [Prozac 20 MG (*)] 40 mg PO DAILY 06/21/16 [Last Taken 10/26/16] Simvastatin [Zocor 10 mg] 10 mg PO DAILY18 06/21/16 [Last Taken 10/26/16] Levothyroxine [Synthroid 75 mcg (*)] 75 mcg PO TH@06 08/22/16 [Last Taken ] oxyCODONE IR [Oxycodone Ir (*)] 5 mg PO Q12H PRN 09/13/16 [Last Taken 10/26/16] lamoTRIgine [LamICTAL XR] 300 mg PO DAILY 10/04/16 [Last Taken 10/26/16] tiZANidine HCL [Zanaflex 2MG (*)] 2 mg PO Q8HRS PRN 10/04/16 [Last Taken ] Acetaminophen [Tylenol 325mg (*)] 650 mg PO Q4HRS PRN #0 tab 10/06/16 [Last Taken Unknown] Cariprazine HCl [Vraylar] 3 mg PO DAILY@18 10/15/16 [Last Taken 10/14/16] Pantoprazole Sodium [Protonix 40mg (*)] 40 mg PO DAILY PRN 10/27/16 [Last Taken Unknown] Sodium Chloride [Salt Tablet] 1,000 mg PO TID 10/27/16 [Last Taken Unknown] Discharge Medications: Refer to the Discharge Home Medication list for PRN reason. - Orders Services needed: Registered Nurse, Certified Allopathic Doctor Diet Recommendation: no restrictions on diet Diet Texture: Regular Texture Diet - Follow Up Care Current Providers and Referrals: Patient,NotPresent [Unknown] - As per Instructions
[2016-10-31] MEDS ORDERED: LEVOTHYROXINE 75 MCG TAB PO SCH (06:00)
== END 2016-10-30 16:59 | DRG 644 ==
LOC: EDUNIT# → INTOOBSV 05:26 → F2W 07:38 → OBSVTOIN 10-28 12:42
PROVIDERS: ADMIT Internal Medicine; ATTEND Family Medicine
DX: E22.2 Syndrome of inappropriate secretion of antidiuretic hormone (principal); F11.20 Opioid dependence, uncomplicated; G89.29 Other chronic pain; J44.9 Chronic obstructive pulmonary disease, unspecified; M34.1 CR(E)ST syndrome; I73.00 Raynaud's syndrome without gangrene; M34.9 Systemic sclerosis, unspecified; M35.00 Sjogren syndrome, unspecified; F31.9 Bipolar disorder, unspecified; Z85.038 Personal history of other malignant neoplasm of large intestine
CPT/HCPCS: 96374; 97161-GP; 97165-GO; G0378; G8978-GP-CI; G8979-GP-CI; G8980-GP-CI; G8987-GO-CI; G8988-GO-CI; G8989-GO-CI; J0834; J1650; J2405; Q9967

== ENCOUNTER 2017-04-10 20:52 | Inpatient (IN) | payer OTHER ==
[2017-04-10 21:12] LABS: % IMMATURE GRANULYOCYTES 0.5 % (0.0-1.1); ABSOLUTE IMMATURE GRANULOCYTES 0.05 10^3/uL (0.00-0.10); ADD DIFF? NO; ADD MORPH? NO; ADD SCAN? NO; ATYPICAL LYMPHOCYTE FLAG 10 (0-99); FRAGMENT RBC FLAG 20 (0-99); HEMATOCRIT 39.8 % (38.0-47.0); HEMOGLOBIN 13.5 g/dL (12.6-16.3); LEFT SHIFT FLG 0 (0-99); LIPEMIA HEMOLYSIS FLAG 90 (0-99); MEAN CELL HEMOGLOBIN 30.6 pg (27.9-34.1); MEAN CELL HEMOGLOBIN CONCENTR. 33.9 g/dL (32.4-36.7); MEAN CELL VOLUME 90.2 fL (81.5-99.8); MEAN PLATELET VOLUME 9.2 fL (8.7-11.7); PLATELET CLUMPS FLAG 20 (0-99); PLATELET COUNT 412 10^3/uL (150-400); RED BLOOD CELL COUNT 4.41 10^6/uL (4.18-5.33); RED CELL DISTRIBUTION WIDTH 19.9 % (11.5-15.2)
[2017-04-10 21:29] LABS: ANION GAP 15 mEq/L (8-16); CALCIUM 10.3 mg/dL (8.5-10.4); CARBON DIOXIDE 22 mEq/l (22-31); CHLORIDE 92 mEq/L (97-110); CREATININE 0.6 mg/dL (0.6-1.0); GLOMERULAR FILTRATION RATE > 60; GLUCOSE 108 mg/dL (70-100); POTASSIUM 4.3 mEq/L (3.5-5.2); SODIUM 129 mEq/L (134-144)
[2017-04-10 22:04] LABS: ALANINE AMINOTRANSFERASE 26 IU/L (9-52); ALBUMIN 4.6 g/dL (3.5-5.0); ALKALINE PHOSPHATASE 87 IU/L (38-126); ASPARTATE AMINOTRANSFERASE 22 IU/L (14-46); BILIRUBIN,TOTAL 0.6 mg/dL (0.1-1.4); BILIRUBIN-CONJUGATED 0.3 mg/dL (0.0-0.5); BILIRUBIN-UNCONJUGATED 0.3 mg/dL (0.0-1.1); TOTAL PROTEIN 7.8 g/dL (6.3-8.2)
--- NOTE | 2017-04-10 22:07 | EDPHY ---
H & P Smoking Status: Light smoker Time Seen by Provider: 04/10/17 21:00 HPI/ROS: CHIEF COMPLAINT: Weakness, nausea, abdominal distension HISTORY OF PRESENT ILLNESS: 66-year-old female with history of hyponatremia, bipolar disorder, cecal carcinoma, and a hemicolectomy presents complaining of nausea for 2 days, generalized weakness, increasing abdominal distension. Patient reports she is concerned that her sodium may be quite low. She denies a fever. She denies diarrhea. No history of chest pain, shortness of breath, palpitations, or urinary complaints. She does report a mild headache. No lightheadedness. Patient has history often constipation. REVIEW OF SYSTEMS: Aside from elements discussed in the HPI, a comprehensive 10-point review of systems was reviewed and is negative. PAST MEDICAL HISTORY: Bipolar disorder, cecal carcinoma, hemicolectomy, hyponatremia SOCIAL HISTORY: Patient resides at [facility]. VITAL SIGNS Reviewed by me. GENERAL: Thin, alert, pleasant female. Complaining of nausea and weakness as well as a headache. HEENT: Atraumatic. Eyes: No icterus, no injection. Mouth: Slightly dry mucous membranes. No erythema or lesions. Neck: supple with no adenopathy. LUNGS: Clear to auscultation bilaterally, no wheezes, rhonchi or rales. CARDIAC: Regular rate and rhythm, no rubs, murmurs or gallops. ABDOMEN: Soft, distended, hyperactive tinkling bowel sounds, mild diffuse tenderness but no guarding or rebound. BACK: No CVA tenderness. EXTREMITIES: No trauma. No edema. Range of motion is normal throughout. NEURO: Alert and oriented, grossly nonfocal. SKIN: Warm and dry, no rash. PSYCHIATRIC: Normal mentation, no agitation. (Carole Braswell) Constitutional: Initial Vital Signs Temperature (C) 37.5 C 04/10/17 20:57 Heart Rate 93 04/10/17 20:57 Respiratory Rate 16 04/10/17 20:57 Blood Pressure 135/89 H 04/10/17 20:57 O2 Sat (%) 93 04/10/17 20:57 O2 Delivery Mode Room Air Allergies/Adverse Reactions: lorazepam [From Ativan] Allergy (Severe, Verified 04/10/17 20:57) fluconazole [From Diflucan] Allergy (Intermediate, Verified 04/10/17 20:57) Sulfa (Sulfonamide Antibiotics) Allergy (Intermediate, Verified 04/10/17 20:57) levofloxacin Allergy (Mild, Verified 04/10/17 20:57) Other-Enter Comments Penicillins Allergy (Unknown, Verified 04/10/17 20:57) Unknown haloperidol [From Haldol] Allergy (Verified 04/10/17 20:57) haloperidol lactate [From Haldol] Allergy (Verified 04/10/17 20:57) frandy Allergy (Unverified 04/10/17 20:57) pineapple Allergy (Unverified 04/10/17 20:57) Quinolones Allergy (Verified 04/10/17 20:57) zolpidem tartrate [From Ambien] Allergy (Verified 04/10/17 20:57) Other-Enter Comments Home Medications: Medication Instructions Recorded Clopidogrel Bisulfate [Plavix (*)] 75 mg PO DAILY #14 tab 04/16/14 Simvastatin [Zocor 10 mg] 10 mg PO DAILY18 06/21/16 Levothyroxine [Synthroid 75 mcg 75 mcg PO TH@06 08/22/16 (*)] Acetaminophen [Tylenol 325mg (*)] 650 mg PO Q4HRS PRN #0 tab 10/06/16 Cariprazine HCl [Vraylar] 3 mg PO DAILY@18 10/15/16 Pantoprazole Sodium [Protonix 40mg 40 mg PO DAILY18 10/27/16 (*)] Albuterol [Proventil Neb] 3 ml IH QID PRN 04/11/17 Benztropine Mesylate [Cogentin (*)] 2 mg PO DAILY 04/11/17 Herbals/Supplements -Info Only 1 ea PO DAILY 04/11/17 Lidocaine 2% Viscous 10 ml PO Q6HRS PRN 04/11/17 Metaxalone [Skelaxin 800 mg (*)] 800 mg PO TID PRN 04/11/17 Sodium Chloride [Salt Tablet] 1,000 mg PO TID@,,18 04/11/17 lamoTRIgine [Lamictal] 300 mg PO DAILY 04/11/17 Medical Decision Making Consult/Admit Bed Type: Dr Orellana, [facility]. Consulted with Dr Blackman - Diagnostics Imaging Results: Xray: Two-view abdominal x-ray was obtained. I viewed the images myself on the PACS system. My interpretation of the images is: Consistent with small- bowel obstruction. The radiology interpretation is: Pending. I discussed the results with the patient. (Carole Braswell) ED Course/Re-evaluation: 12:27 a.m.- I received a call from the radiologist Dr. Snow who states that the patient' s CT scan does show a small bowel obstruction with no obvious transition point. NG tube has been placed. (Fernanda Lanza) 66-year-old female with history of abdominal surgeries, presenting with weakness , nausea, and increasing distension the abdomen. Patient's sodium is 129, white count of 9.6. Two-view abdomen demonstrates multiple air-fluid levels as well as distended loops of bowel. CT scan was ordered. Patient had a NG-tube placed. (Carole Braswell) Differential Diagnosis: After obtaining the patient's history and performing an examination, differential diagnosis considered included but was not limited to electrolyte abnormalities, urinary tract infection, small-bowel obstruction, ileus, volvulus. (Carole Braswell) - Data Points Laboratory Results: Laboratory Results 04/11/17 05:07 04/11/17 05:07 Medications Given: Discontinued Medications Benztropine Mesylate (Cogentin) 2 mg PO DAILY ECHO Stop: 10/09/17 08:59 Last Admin: 04/12/17 08:59 Dose: 2 mg Clopidogrel Bisulfate (Plavix) 75 mg PO DAILY ECHO Stop: 10/09/17 08:59 Last Admin: 04/12/17 08:58 Dose: 75 mg Sodium Chloride (Ns) 1,000 mls @ 0 mls/hr IV ONCE ONE PRN Reason: Wide Open Stop: 04/10/17 23:37 Last Admin: 04/10/17 23:40 Dose: 1,000 mls Lamotrigine (Lamictal) 300 mg PO DAILY ECHO Stop: 10/09/17 08:59 Last Admin: 04/12/17 08:58 Dose: 300 mg Lidocaine (Lidocaine 2% Viscous) 5 ml PO EDNOW ONE Stop: 04/10/17 23:26 Last Admin: 04/10/17 23:39 Dose: 5 ml Lidocaine (Lidocaine 2% Viscous) 10 ml PO Q6H PRN PRN Reason: CANKER SORES Stop: 10/08/17 11:59 Last Admin: 04/12/17 06:50 Dose: 1 ml Lidocaine/Diphenhydramine/Alumin/Mg (Maalox/Diphenhydramine/Lido) 5 ml PO PRN PRN PRN Reason: Mucositis, Mouth Pain Stop: 10/08/17 03:23 Last Admin: 04/11/17 11:59 Dose: 1 van Metaxalone (Skelaxin) 800 mg PO TID PRN PRN Reason: Spasms Stop: 10/08/17 11:12 Last Admin: 04/12/17 09:24 Dose: 800 mg Miscellaneous Medication (Cariprazine Hcl [Vraylar]) 3 mg PO DAILY@18 [facility] Stop: 10/08/17 17:59 Last Admin: 04/11/17 21:23 Dose: Not Given Pantoprazole Sodium (Protonix) 40 mg PO DAILY18 [facility] Stop: 10/08/17 17:59 Last Admin: 04/11/17 18:46 Dose: 40 mg Pravastatin Sodium (Pravachol) 20 mg PO DAILY@1800 [facility] Stop: 10/08/17 17:59 Last Admin: 04/11/17 18:45 Dose: Not Given Sodium Chloride (Salt Tablet) 1,000 mg PO TID@08,,18 [facility] Stop: 10/08/17 11:59 Last Admin: 04/12/17 08:59 Dose: 1,000 mg Departure - Departure Disposition: [facility] Inpatient Acute Clinical Impression: Small bowel obstruction, Hyponatremia Abdominal pain Qualifiers: Abdominal location: generalized Qualified Code(s): R10.84 - Generalized abdominal pain Condition: Good
[2017-04-10] MEDS ORDERED: IOPAMIDOL (ISOVUE-300) 100 ML BTL ONE (22:54)
[2017-04-10] MEDS ORDERED: LIDOCAINE 2% VISCOUS 15 ML UDCUP ONE (23:20)
[2017-04-10] MEDS ORDERED: LIDOCAINE 2% VISCOUS 15 ML UDCUP PO ONE (23:25)
[2017-04-10] MEDS ORDERED: NS 1,000 ML IV ONE (23:36)
[2017-04-10] MEDS ORDERED: BENZOCAINE UNIT DOSE SPRAY HURRICAINE MM ONE (23:43)
[2017-04-11] MEDS ORDERED: ONDANSETRON DISINTEGRATING 4 MG TAB PO PRN (01:33)
[2017-04-11] MEDS ORDERED: ACETAMINOPHEN 325 MG TAB PO PRN ×2 (01:33→11:13)
[2017-04-11] MEDS ORDERED: ONDANSETRON 4 MG/2 ML VIAL IVP PRN (01:33)
--- NOTE | 2017-04-11 01:55 | PDGENHP ---
History and Physical - Chief Complaint Abdominal distention - History of Present Illness 66 yo F w/ hx of BPD, colon CA s/p hemicolectomy, and SIADH presents with nausea and abdominal distention. Patient has had worsening symptoms for 2-3 days. She has been admitted here several times for hyponatremia and thought this might be the issue. Her symptoms are abdominal distention, pain, and nausea. She denies infectious symptoms and BRBPR. At the time of my evaluation patient was resting comfortably but with notably distended abdomen. CT in the ED showed evidence of bowel obstruction without clear transition point. NG tube was attempted x2 but unsuccessful, patient asking to delay next attempt until morning. History Information - Allergies/Home Medication List Allergies/Adverse Reactions: lorazepam [From Ativan] Allergy (Severe, Verified 04/10/17 20:57) fluconazole [From Diflucan] Allergy (Intermediate, Verified 04/10/17 20:57) Sulfa (Sulfonamide Antibiotics) Allergy (Intermediate, Verified 04/10/17 20:57) levofloxacin Allergy (Mild, Verified 04/10/17 20:57) Other-Enter Comments Penicillins Allergy (Unknown, Verified 04/10/17 20:57) Unknown haloperidol [From Haldol] Allergy (Verified 04/10/17 20:57) haloperidol lactate [From Haldol] Allergy (Verified 04/10/17 20:57) frandy Allergy (Unverified 04/10/17 20:57) pineapple Allergy (Unverified 04/10/17 20:57) Quinolones Allergy (Verified 04/10/17 20:57) zolpidem tartrate [From Ambien] Allergy (Verified 04/10/17 20:57) Other-Enter Comments Home Medications: Cholecalciferol Vit D3 [Vitamin D3 (*)] 2,000 units PO DAILY18 06/21/16 [Last Taken 10/14/16] Eszopiclone [Lunesta] 2 mg PO HS 06/21/16 [Last Taken 10/26/16] FLUoxetine [Prozac 20 MG (*)] 40 mg PO DAILY 06/21/16 [Last Taken 10/26/16] Simvastatin [Zocor 10 mg] 10 mg PO DAILY18 06/21/16 [Last Taken 10/26/16] Levothyroxine [Synthroid 75 mcg (*)] 75 mcg PO TH@06 08/22/16 [Last Taken ] oxyCODONE IR [Oxycodone Ir (*)] 5 mg PO Q12H PRN 09/13/16 [Last Taken 10/26/16] lamoTRIgine [LamICTAL XR] 300 mg PO DAILY 10/04/16 [Last Taken 10/26/16] tiZANidine HCL [Zanaflex 2MG (*)] 2 mg PO Q8HRS PRN 10/04/16 [Last Taken ] Cariprazine HCl [Vraylar] 3 mg PO DAILY@18 10/15/16 [Last Taken 10/14/16] Pantoprazole Sodium [Protonix 40mg (*)] 40 mg PO DAILY PRN 10/27/16 [Last Taken Unknown] Sodium Chloride [Salt Tablet] 1,000 mg PO TID 10/27/16 [Last Taken Unknown] I have personally reviewed and updated: family history, medical history - Past Medical History COPD Additional medical history: scleroderma, CREST, fibromyalgia, h/o alcohol abuse , CAD, osteoporosis, hypothyroidism, bipolar disorder, colon cancer - Surgical History Reports: cholecystectomy Additional surgical history: partial colectomy. appendectomy - Family History Positive for: non-pertinent - Social History Smoking Status: Light smoker Additional social history: Patient lives in assisted living facility Review of Systems Review of Systems: ROS: 10pt was reviewed & negative except for what was stated in HPI & below Physical Exam Physical Exam: Temp Pulse Resp BP Pulse Ox 37.5 C 81 18 130/67 H 95 04/10/17 20:57 04/11/17 00:13 04/11/17 00:13 04/11/17 00:13 04/11/17 00:13 Constitutional: no apparent distress, uncomfortable Eyes: PERRL, anicteric sclera Ears, Nose, Mouth, Throat: moist mucous membranes, no oral mucosal ulcers Cardiovascular: regular rate and rhythym, no murmur, rub, or gallop Respiratory: no respiratory distress, clear to auscultation Gastrointestinal: tenderness (Diffuse), distension, No guarding, No rebound Skin: warm, normal color Musculoskeletal: full muscle strength, no muscle tenderness Neurologic: AAOx3, CN II-XII Intact Lab Data & Imaging Review 04/10/17 21:04 04/10/17 21:04 WBC 9.66 10^3/uL (3.80-9.50) H 04/10/17 21:04 RBC 4.41 10^6/uL (4.18-5.33) 04/10/17 21:04 Hgb 13.5 g/dL (12.6-16.3) 04/10/17 21:04 Hct 39.8 % (38.0-47.0) 04/10/17 21:04 MCV 90.2 fL (81.5-99.8) 04/10/17 21:04 MCH 30.6 pg (27.9-34.1) 04/10/17 21:04 MCHC 33.9 g/dL (32.4-36.7) 04/10/17 21:04 RDW 19.9 % (11.5-15.2) H 04/10/17 21:04 Plt Count 412 10^3/uL (150-400) H 04/10/17 21:04 MPV 9.2 fL (8.7-11.7) 04/10/17 21:04 Neut % (Auto) 78.6 % (39.3-74.2) H 04/10/17 21:04 Lymph % (Auto) 13.6 % (15.0-45.0) L 04/10/17 21:04 [place] % (Auto) 6.9 % (4.5-13.0) 04/10/17 21:04 Eos % (Auto) 0.1 % (0.6-7.6) L 04/10/17 21:04 Baso % (Auto) 0.3 % (0.3-1.7) 04/10/17 21:04 Nucleat RBC Rel Count 0.0 % (0.0-0.2) 04/10/17 21:04 Absolute Neuts (auto) 7.59 10^3/uL (1.70-6.50) H 04/10/17 21:04 Absolute Lymphs (auto) 1.31 10^3/uL (1.00-3.00) 04/10/17 21:04 Absolute Monos (auto) 0.67 10^3/uL (0.30-0.80) 04/10/17 21:04 Absolute Eos (auto) 0.01 10^3/uL (0.03-0.40) L 04/10/17 21:04 Absolute Basos (auto) 0.03 10^3/uL (0.02-0.10) 04/10/17 21:04 Absolute Nucleated RBC 0.00 10^3/uL (0-0.01) 04/10/17 21:04 Immature Gran % 0.5 % (0.0-1.1) 04/10/17 21:04 Immature Gran # 0.05 10^3/uL (0.00-0.10) 04/10/17 21:04 Sodium 129 mEq/L (134-144) L 04/10/17 21:04 Potassium 4.3 mEq/L (3.5-5.2) 04/10/17 21:04 Chloride 92 mEq/L (97-110) L 04/10/17 21:04 Carbon Dioxide 22 mEq/l (22-31) 04/10/17 21:04 Anion Gap 15 mEq/L (8-16) 04/10/17 21:04 BUN 11 mg/dL (7-23) 04/10/17 21:04 Creatinine 0.6 mg/dL (0.6-1.0) 04/10/17 21:04 Estimated GFR > 60 04/10/17 21:04 Glucose 108 mg/dL (70-100) H 04/10/17 21:04 Calcium 10.3 mg/dL (8.5-10.4) 04/10/17 21:04 Total Bilirubin 0.6 mg/dL (0.1-1.4) 04/10/17 21:04 Conjugated Bilirubin 0.3 mg/dL (0.0-0.5) 04/10/17 21:04 Unconjugated Bilirubin 0.3 mg/dL (0.0-1.1) 04/10/17 21:04 AST 22 IU/L (14-46) 04/10/17 21:04 ALT 26 IU/L (9-52) 04/10/17 21:04 Alkaline Phosphatase 87 IU/L (38-126) 04/10/17 21:04 Total Protein 7.8 g/dL (6.3-8.2) 04/10/17 21:04 Albumin 4.6 g/dL (3.5-5.0) 04/10/17 21:04 Lipase 49 IU/L (23-300) 04/10/17 21:04 TSH 3.860 uIU/mL (0.465-4.680) 04/10/17 21:04 Imaging Review: CT abdomen shows evidence of bowel obstruction with no clear transition point; mild/mod distention (4.4 cm). Assessment & Plan Assessment: 66 yo w/ hx of BPD, colon CA s/p hemicolectomy, and SIADH presents with bowel obstruction. Plan: 1. Bowel obstruction - No clear transition point, but suspected in the ileum per radiology. Patient evaluated by surgery in the ED, no surgical indication at this time. Suspect she is predisposed to this by prior intra-abdominal surgery. - Maintain NPO - Place NGT for decompression(failed x2 in ED, patient willing to try again in the morning) - Repeat abdominal XR and lactic acid in the morning - Surgery following, appreciate assistance 2. Hyponatremia - Mild, 129 on admission, which I suspect is very near her baseline from review of previous values. She has long history of suspected SIADH. - Monitor daily BMP 3. Hx BPD - On Lamictal and fluoxetine as outpatient 4. Hx CAD - On plavix 5. Chronic pain - On chronic opiate therapy Diet - NPO Code - Full Ppx - SCDs Dispo - Admit to observation status
[2017-04-11] MEDS: MBX SOLN 30 ML BOTTLE PO PRN ×4 (03:39→11:59)
[2017-04-11 05:16] LABS: % IMMATURE GRANULYOCYTES 0.2 % (0.0-1.1); ABSOLUTE IMMATURE GRANULOCYTES 0.02 10^3/uL (0.00-0.10); ADD DIFF? NO; ADD MORPH? NO; ADD SCAN? NO; ATYPICAL LYMPHOCYTE FLAG 30 (0-99); FRAGMENT RBC FLAG 0 (0-99); HEMATOCRIT 36.2 % (38.0-47.0); HEMOGLOBIN 12.2 g/dL (12.6-16.3); LEFT SHIFT FLG 0 (0-99); LIPEMIA HEMOLYSIS FLAG 80 (0-99); MEAN CELL HEMOGLOBIN 30.9 pg (27.9-34.1); MEAN CELL HEMOGLOBIN CONCENTR. 33.7 g/dL (32.4-36.7); MEAN CELL VOLUME 91.6 fL (81.5-99.8); MEAN PLATELET VOLUME 9.3 fL (8.7-11.7); PLATELET CLUMPS FLAG 0 (0-99); PLATELET COUNT 353 10^3/uL (150-400); RED BLOOD CELL COUNT 3.95 10^6/uL (4.18-5.33); RED CELL DISTRIBUTION WIDTH 19.9 % (11.5-15.2)
[2017-04-11 06:02] LABS: ALANINE AMINOTRANSFERASE 28 IU/L (9-52); ALBUMIN 3.8 g/dL (3.5-5.0); ALKALINE PHOSPHATASE 74 IU/L (38-126); ANION GAP 13 mEq/L (8-16); ASPARTATE AMINOTRANSFERASE 17 IU/L (14-46); BILIRUBIN,TOTAL 0.6 mg/dL (0.1-1.4); CALCIUM 8.8 mg/dL (8.5-10.4); CARBON DIOXIDE 17 mEq/l (22-31); CHLORIDE 103 mEq/L (97-110); CREATININE 0.5 mg/dL (0.6-1.0); GLOMERULAR FILTRATION RATE > 60; GLUCOSE 91 mg/dL (70-100); POTASSIUM 3.8 mEq/L (3.5-5.2); SODIUM 133 mEq/L (134-144); TOTAL PROTEIN 6.6 g/dL (6.3-8.2)
--- NOTE | 2017-04-11 09:31 | SOAPPROG ---
SOAP Progress Note Assessment/Plan: 04/11/17 09:26 Assessment: Staff could not place NG last PM. She is passing gas and stool this AM. She feels better. TSH is normal. Na up to 133. Colonic obstruction due to stool. Plan: Continue supportive care while this issue resolves. Surgery will sign off today. Discussed with Dr. Tejada. Subjective: I'm passing stool and gas. I feel much better. Objective: Vital Signs Temp Pulse Resp BP Pulse Ox 36.6 C 75 24 H 112/51 L 92 04/11/17 08:00 04/11/17 08:00 04/11/17 08:00 04/11/17 08:00 04/11/17 08:00 Laboratory Results 04/11/17 05:07 04/11/17 05:07 04/10/17 04/11/17 04/12/17 05:59 05:59 05:59 Intake Total 1000 Output Total 600 Balance 400 - Time Spent With Patient Time Spent With Patient: 15 Physical Exam - Physical Exam General Appearance: WD/WN, alert, no apparent distress Abdomen: normal bowel sounds, non-tender, soft, distended, hernia (incisional epigastric hernia) Skin: normal color, warm/dry Neuro/Psych: no motor/sensory deficits, alert, normal mood/affect, oriented x 3 ICD10 Worksheet Patient Problems: Problems Problem Status Onset Abdominal pain Acute Hyponatremia Acute Small bowel obstruction Acute Colon adenocarcinoma Acute Hyponatremia syndrome Acute Hypotension Acute Hypoxia Acute Leukocytosis Acute Lower respiratory infection Acute Periumbilical hernia Acute
--- NOTE | 2017-04-11 10:10 | GCON ---
[f rep st] CONSULTATION REFERRING PHYSICIAN: Carole Braswell MD REASON FOR EVALUATION: Abdominal distention, bloating and nausea. 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 She did not undergo any chemotherapy. She often is hyponatremic and when that happens, she often becomes bloated. Her last colonoscopy was 3 weeks ago and was unremarkable. The current events started 24 hours ago with bloating and distention. She did not vomit until this afternoon. SOCIAL HISTORY: She smokes approximately 3 cigarettes a day and has a couple of drinks a week. ALLERGIES: She had an adverse reaction to fluconazole as manifested by difficulty breathing. Lorazepam gives her a paradoxical hyperactivity. She has been told she is allergic to penicillin and sulfa, but does not know how that is manifested. MEDICATIONS: She takes benztropine mesylate 0.5 mg at 8 a.m., and 1 mg at 7 a.m. She also takes Vraylar 3 mg at bedtime. She takes Lamictal 300 mg daily, Lunesta 2 mg at bedtime, pantoprazole 20 mg at bedtime, Plavix 75 mg daily, Synthroid 75 mcg every morning, urea sodium 30 g daily, Zocor 10 mg daily, Skelaxin 800 mg t.i.d., sodium chloride 1 g daily, Tylenol 650 mg every 4 hours , albuterol 1 vial inhaler every 6 hours, and viscous lidocaine for canker sores. PAST SURGICAL HISTORY: Includes a cholecystectomy, appendectomy, repair of abdominal wall hernia which looks like it was probably a spigelian hernia. She has had a left wrist surgery, a right shoulder surgery. PAST MEDICAL HISTORY: She has bipolar disorder. There is no history of rheumatic fever, tuberculosis, hepatitis, transfusions. She has been hypothyroid for over a year. She has a known hiatal hernia. She has SIADH and is seeing Nephrology. This is the reason she has a low sodium, and takes the urea sodium. She has scleroderma with CREST syndrome. She has a compression fracture of T8 and T12. PHYSICAL EXAMINATION: GENERAL: She is awake and alert. ABDOMEN: Quite protuberant. There is a midepigastric hernia which admits easily 3 fingers. There is no incarceration. She has essentially no tenderness with cough if the hernia is supported. She has hypoactive bowel sounds in all quadrants. LUNGS: Clear. CARDIAC: S1, S2 normal. LYMPH NODES: There is no cervical, supraclavicular, axillary or inguinal lymphadenopathy. She states she usually weighs 99-100 pounds. She has 5 small meals a day, and takes an Ensure supplement. She states she has lost about 10 pounds over the past 6 months. IMAGING STUDIES: On CAT scan, she has dilated small bowel throughout its length. She does have ascitic fluid in the pelvis. The colon appears to be quite distended with gas and stool. It is difficult to follow the colon through out its length. As far she knows, she has no evidence of recurrent cancer. IMPRESSION: Patient with abdominal distention with hypoactive to normal bowel sounds, but no "rain barrel" findings. This may be a colonic mechanical obstruction but may possibly be just constipation. The etiology of her ascites is unclear. She certainly does not have an acute abdomen. Her white blood cell count is not up. Her sodium is 129. I cannot identify a need for surgical intervention at this time. Recommend that we try conservative therapy with bed rest, IV fluids, correction of her electrolytes, evaluation of her TSH, and nasogastric decompression. I would recommend a followup film in the morning. /[id number]/MODL MTDD
[2017-04-11] MEDS ORDERED: METAXALONE 800 MG TAB PO PRN (11:13)
[2017-04-11] MEDS ORDERED: ALBUTEROL 3 ML DEYVIAL IH PRN (11:13)
--- NOTE | 2017-04-11 13:15 | HOSPPROG ---
Hospitalist Progress Note Assessment/Plan: 66 yo w/ hx of BPD, colon CA s/p hemicolectomy, and SIADH presents with bowel obstruction. D/W Dr Blackman. First encounter, chart reviewed. Plan: 1. Bowel obstruction vs obstipation - No clear transition point, but suspected in the ileum per radiology. - no surgical indication at this time. - Maintain NPO - Failed placement of NGT - passign gas and stool - Repeat abdominal XR shows persistent abnormality - Appreciate surgery assistance 2. Hyponatremia - Mild, 129 on admission - better 133 - She has long history of suspected SIADH. - Monitor daily BMP 3. Hx BPD - On Lamictal and fluoxetine as outpatient 4. Hx CAD - On plavix 5. Chronic pain - On chronic opiate therapy Diet - NPO advance to clears in am Code - Full Ppx - SCDs Dispo - change to inpt status, requires further inpt evaluation Subjective: Up walking. Feeling better. Objective: Vital Signs Temp Pulse Resp BP Pulse Ox 36.5 C 67 22 H 110/56 L 95 04/11/17 12:00 04/11/17 12:00 04/11/17 12:00 04/11/17 12:00 04/11/17 12:00 Laboratory Results 04/11/17 05:07 04/11/17 05:07 04/10/17 04/11/17 04/12/17 05:59 05:59 05:59 Intake Total 1000 Output Total 600 Balance 400 - Physical Exam Constitutional: appears nourished, not in pain, chronically ill appearing Eyes: PERRL, anicteric sclera, EOMI Ears, Nose, Mouth, Throat: moist mucous membranes, hearing normal, ears appear normal Cardiovascular: No JVD, No tachycardia, No edema Respiratory: no respiratory distress, no rales or rhonchi, reduced air movement Gastrointestinal: distension, No ascites, No guarding Skin: warm, normal color, No mottled Neurologic: AAOx3 Psychiatric: not anxious, not encephalopathic, thought process linear, poor insight, poor judgement ICD10 Worksheet Patient Problems: Problems Problem Status Onset Colon adenocarcinoma Acute Hyponatremia syndrome Acute Abdominal pain Acute Periumbilical hernia Acute Small bowel obstruction Acute Hypoxia Acute Lower respiratory infection Acute Leukocytosis Acute Hyponatremia Acute Hypotension Acute
--- NOTE | 2017-04-11 16:41 | ASMTCMCOM ---
CM Note CM Note Notes: Pt is a 66 y/o female admitted w/ abdominal distention. CT showed evidence of bowel obstruction w/out clear transition point. NG tube attempted x2 but unable to place, pt asked to delay it until tomorrow morning. PT is ordered. CM to follow. Date Signed: 04/11/2017 04:41 PM Electronically Signed By:ENRRIQUE Robles
[2017-04-11] MEDS ORDERED: Cariprazine Hcl [Vraylar] 3 MG PO SCH (18:00)
[2017-04-11] MEDS ORDERED: PRAVASTATIN SODIUM 20 MG TAB PO SCH (18:00)
[2017-04-11] MEDS ORDERED: PANTOPRAZOLE SODIUM 40 MG TAB PO SCH (18:00)
[2017-04-11] MEDS: LIDOCAINE 2% VISCOUS 15 ML UDCUP PO PRN ×2 (18:43→23:29)
[2017-04-11] MEDS: SODIUM CHLORIDE 1,000 MG TAB PO SCH ×2 (18:44)
[2017-04-12 03:19] VITALS: TEMP 97.3
[2017-04-12] MEDS: LIDOCAINE 2% VISCOUS 15 ML UDCUP PO PRN (06:50)
[2017-04-12 07:42] VITALS: BP 117/60; PULSE 88; RESP 18; O2SAT 94
[2017-04-12] MEDS: SODIUM CHLORIDE 1,000 MG TAB PO SCH (08:59)
[2017-04-12] MEDS ORDERED: lamoTRIgine 100 MG TAB PO SCH (09:00)
[2017-04-12] MEDS ORDERED: CLOPIDOGREL BISULFATE 75 MG TAB PO SCH (09:00)
[2017-04-12] MEDS ORDERED: BENZTROPINE MESYLATE 2 MG TAB PO SCH (09:00)
[2017-04-12] MEDS ORDERED: Herbals/Supplements -Info Only PO SCH (09:00)
--- NOTE | 2017-04-12 10:02 | ASMTCMCOM ---
CM Note CM Note Notes: Spoke w/CREDIT MANAGER, pt to return to [facility] w/no extra needs. Francesca at [facility] notified and faxed notes, pt arraging for transportation. Date Signed: 04/12/2017 10:01 AM Electronically Signed By:Melany Bernstein RN
--- NOTE | 2017-04-12 11:48 | GDS ---
[f rep st] DISCHARGE SUMMARY DISCHARGE DIAGNOSES: 1. Small bowel obstruction. 2. Constipation. 3. Hyponatremia. 4. History of chronic pain. CONSULTATIONS: General surgery. STUDIES AND PROCEDURES DONE: 1. Multiple abdominal x-rays. 2. CT of the abdomen. PHYSICAL EXAM: GENERAL: The patient is alert. VITAL SIGNS: Afebrile at 36.3 , pulse is 88, respiratory rate is 18, blood pressure is 117/60. She is saturating 94% on room air. I have seen and evaluated the patient on the day of discharge. HOSPITAL COURSE: The patient is a 66-year-old female who presented to the emergency room with complaints of abdominal pain. She was evaluated and diagnosed with. 1. Small bowel obstruction. During this hospitalization she was treated with supportive management including IV fluids. She did receive a consultation from General Surgery. The patient's symptoms resolved. She is having normal bowel movements and has returned to her baseline. 2. Constipation. This has resolved and the patient has been educated with regard to potential complications. 3. Hyponatremia. The patient is at her baseline with history of SIADH. 4. Chronic pain. She has no pain at this point, and has continued on her previously prescribed medications. DISPOSITION: The patient will be discharged home to return to her assisted living facility, independently. There are no pending studies. Followup needed. She will follow up with her primary care physician, Dr. Fernanda Mcfadden , in the outpatient setting. DISCHARGE MEDICATIONS: Please refer to EMR form. I have not provided the patient any prescriptions at the time of disposition nor have I adjusted any of her previously prescribed home medications to the best of my knowledge. I have spent greater than 35 minutes in the care, coordination, and management of this patient's disposition. /[id number]/MODL MTDD
--- NOTE | 2017-04-12 14:24 | ASDISCHSUM ---
Discharge Information Plan Status:Assisted Living Medically Cleared to Leave: Discharge Date:04/12/2017 10:28 AM CM D/C Disposition:Home, Routine, Self-Care ADT D/C Disposition:Home, Routine, Self-Care Projected Discharge Date:04/12/2017 10:28 AM Transportation at D/C:Friend Discharge Delay Reason: Follow-Up Date:04/12/2017 10:28 AM Discharge Slot: Final Diagnosis: Placement Information Patient Contact Information Contact Name:MAURO Relationship:Sister Address: City:[place] Alternate Phone: [facility]/Zip Code:[place] Email: Financial Information Financial Class:Medicare Advantage Plans Primary Plan Desc:[facility] ADVANTAGE PLANS Primary Plan Number:[id number] Secondary Plan Desc: Secondary Plan Number: Assessment Information [facility] CM Progress Note CM Note CM Note Notes: Pt is a 66 y/o female admitted w/ abdominal distention. CT showed evidence of bowel obstruction w/out clear transition point. NG tube attempted x2 but unable to place, pt asked to delay it until tomorrow morning. PT is ordered. CM to follow. Date Signed: 04/11/2017 04:41 PM Electronically Signed By:ENRRIQUE Robles [facility] CM Progress Note CM Note CM Note Notes: Spoke w/ASSISTED LIVING CARE MANAGER, pt to return to [facility] w/no extra needs. Francesca at [facility] notified and faxed notes, pt arraging for transportation. Date Signed: 04/12/2017 10:01 AM Electronically Signed By:Melany Bernstein RN Intervention Information Intervention Type:*STEARNS-Signed Date of Service:04/11/2017 10:15 AM Patient Type:Observation Staff Member:Cori Florez Hours: Discipline: Severity: Comment:
[2017-04-17] MEDS ORDERED: LEVOTHYROXINE 75 MCG TAB PO SCH (06:00)
== END 2017-04-12 10:28 | disposition home or self-care (01) | DRG 389 ==
LOC: EDUNIT# → F3E 04-11 00:29 → OBSVTOIN 04-11 13:20
PROVIDERS: ADMIT Student in an Organized Health Care Education/Training Program; ATTEND Student in an Organized Health Care Education/Training Program
DX: K56.60 Unspecified intestinal obstruction (principal); K59.00 Constipation, unspecified; E22.2 Syndrome of inappropriate secretion of antidiuretic hormone; G89.29 Other chronic pain; Z85.038 Personal history of other malignant neoplasm of large intestine; F31.9 Bipolar disorder, unspecified; F17.210 Nicotine dependence, cigarettes, uncomplicated; M34.1 CR(E)ST syndrome
CPT/HCPCS: 97161-GP; G8978-GP-CI; G8979-GP-CI; G8980-GP-CI; Q9967

== ENCOUNTER 2017-04-16 20:13 | Inpatient (IN) | payer OTHER ==
[2017-04-16] MEDS ORDERED: ONDANSETRON 4 MG/2 ML VIAL IVP ONE ×2 (20:37→22:33)
--- NOTE | 2017-04-16 21:03 | EDPHY ---
H & P Stated Complaint: abd pain Time Seen by Provider: 04/16/17 20:51 HPI/ROS: Chief Complaint: Abdominal pain HPI: 66-year-old woman with a history of colon cancer and colon resection and frequent bowel obstructions presenting with abdominal pain and distention for the last 2 days. She was actually discharged from the hospital after a bowel obstruction 3 days ago. Patient states that after going home her a abdomen began getting more distended. She has not been eating. Has been drinking since very little fluids. Had 1 very small watery and gassy bowel movement this morning, otherwise has not had a bowel movement since discharge. Has had nausea but no vomiting. ROS: 10 point Review of Systems is negative except as noted in the HPI. PMH: Colon cancer status post resection, scleroderma, lumbar spinal fracture, crest syndrome, osteoporosis Social History: No smoking, no alcohol, no recreational drug use Family History: non-contributory Physical Exam: Gen: Awake, Alert, No Distress HEENT: Nose: no rhinorrhea Eyes: PERRLA, EOMI Mouth: Moist mucosa Neck: Supple, no JVD Chest: nontender, lungs clear to auscultation Heart: S1, S2 normal, no murmur Abd: Distended, hyperactive bowel sounds, tympanitic Back: no CVA tenderness, no midline tenderness Ext: no edema, non-tender Skin: no rash Neuro: CN II-XII intact, Sensation grossly intact, Strength 5/5 in bilateral upper and lower extremities - Personal History Current Tetanus/Diphtheria Vaccine: Unsure Current Tetanus Diphtheria and Acellular Pertussis (TDAP): Unsure Tetanus Vaccine Date: unsure - Medical/Surgical History Hx Asthma: No Hx Chronic Respiratory Disease: Yes Hx Diabetes: Yes Hx Cardiac Disease: Yes Hx Renal Disease: No Hx Cirrhosis: No Hx Alcoholism: No Hx HIV/AIDS: No Hx Splenectomy or Spleen Trauma: No Other PMH: pmh- cecal CA, scleroderma, sjogrens, raynauds, resp failure 2/2 COPD , Bipolar, SVT, severe deperssion, CAD, 50-60% R internal carotid stenosis, 70- 80% L internal carotid stenosis. psh- hemicolectomy, R hip ORIF, maikol, umbilical hernia x3, hiatal hernia - Social History Smoking Status: Light smoker Constitutional: Initial Vital Signs Temperature (C) 36.8 C 04/16/17 20:17 Heart Rate 100 04/16/17 20:17 Respiratory Rate 18 04/16/17 20:17 Blood Pressure 169/90 H 04/16/17 20:17 O2 Sat (%) 95 04/16/17 20:17 O2 Delivery Mode Room Air Allergies/Adverse Reactions: lorazepam [From Ativan] Allergy (Severe, Verified 04/16/17 22:33) fluconazole [From Diflucan] Allergy (Intermediate, Verified 04/16/17 22:33) Sulfa (Sulfonamide Antibiotics) Allergy (Intermediate, Verified 04/16/17 22:33) levofloxacin Allergy (Mild, Verified 04/16/17 22:33) Other-Enter Comments Penicillins Allergy (Unknown, Verified 04/16/17 22:33) Unknown haloperidol [From Haldol] Allergy (Verified 04/16/17 22:33) haloperidol lactate [From Haldol] Allergy (Verified 04/16/17 22:33) frandy Allergy (Verified 04/16/17 22:33) pineapple Allergy (Verified 04/16/17 22:33) Quinolones Allergy (Verified 04/16/17 22:33) zolpidem tartrate [From Ambien] Allergy (Verified 04/16/17 22:33) Other-Enter Comments Home Medications: Medication Instructions Recorded Clopidogrel Bisulfate [Plavix (*)] 75 mg PO DAILY #14 tab 04/16/14 Simvastatin [Zocor 10 mg] 10 mg PO DAILY18 06/21/16 Levothyroxine [Synthroid 75 mcg 75 mcg PO TH@06 08/22/16 (*)] Acetaminophen [Tylenol 325mg (*)] 650 mg PO Q4HRS PRN #0 tab 10/06/16 Cariprazine HCl [Vraylar] 3 mg PO DAILY@18 10/15/16 Pantoprazole Sodium [Protonix 40mg 40 mg PO DAILY18 10/27/16 (*)] Albuterol [Proventil Neb] 3 ml IH QID PRN 04/11/17 Benztropine Mesylate [Cogentin (*)] 2 mg PO DAILY 04/11/17 Herbals/Supplements -Info Only 1 ea PO DAILY 04/11/17 Lidocaine 2% Viscous 10 ml PO Q6HRS PRN 04/11/17 Metaxalone [Skelaxin 800 mg (*)] 800 mg PO TID PRN 04/11/17 Sodium Chloride [Salt Tablet] 1,000 mg PO TID@,,18 04/11/17 lamoTRIgine [Lamictal] 300 mg PO DAILY 04/11/17 Medical Decision Making - Diagnostics Imaging Results: Imaging Impressions Abdomen X-Ray 04/16/17 21:03 Impression: 1. Persistent moderate dilatation of predominantly small bowel loops suggestive of moderate distal small bowel obstruction similar to the prior study. ED Course/Re-evaluation: [age] with a recent discharge small-bowel obstruction. Patient presenting now with abdominal distention and pain. Abdominal x-ray reveals multiple air-fluid levels which are unchanged from prior. I have discussed with Dr. Chen, hospitalist. She will admit to her service for further evaluation. I have ordered a CT scan to determine if there has been any changes from her scan from 6 days ago. - Data Points Laboratory Results: Laboratory Results 04/16/17 20:48 04/16/17 20:48 04/16/17 04/16/17 20:48 20:48 WBC 7.26 10^3/uL 10^3/uL (3.80-9.50) RBC 4.26 10^6/uL 10^6/uL (4.18-5.33) Hgb 13.3 g/dL g/dL (12.6-16.3) Hct 38.5 % % (38.0-47.0) MCV 90.4 fL fL (81.5-99.8) MCH 31.2 pg pg (27.9-34.1) MCHC 34.5 g/dL g/dL (32.4-36.7) RDW 18.8 % H % (11.5-15.2) Plt Count 429 10^3/uL H 10^3/uL (150-400) MPV 9.7 fL fL (8.7-11.7) Neut % (Auto) 64.0 % % (39.3-74.2) Lymph % (Auto) 24.5 % % (15.0-45.0) Howard % (Auto) 9.4 % % (4.5-13.0) Eos % (Auto) 1.2 % % (0.6-7.6) Baso % (Auto) 0.6 % % (0.3-1.7) Nucleat RBC Rel Count 0.0 % % (0.0-0.2) Absolute Neuts (auto) 4.65 10^3/uL 10^3/uL (1.70-6.50) Absolute Lymphs (auto) 1.78 10^3/uL 10^3/uL (1.00-3.00) Absolute Monos (auto) 0.68 10^3/uL 10^3/uL (0.30-0.80) Absolute Eos (auto) 0.09 10^3/uL 10^3/uL (0.03-0.40) Absolute Basos (auto) 0.04 10^3/uL 10^3/uL (0.02-0.10) Absolute Nucleated RBC 0.00 10^3/uL 10^3/uL (0-0.01) Immature Gran % 0.3 % % (0.0-1.1) Immature Gran # 0.02 10^3/uL 10^3/uL (0.00-0.10) Sodium 129 mEq/L L mEq/L (134-144) Potassium 3.5 mEq/L mEq/L (3.5-5.2) Chloride 94 mEq/L L mEq/L (97-110) Carbon Dioxide 20 mEq/l L mEq/l (22-31) Anion Gap 15 mEq/L mEq/L (8-16) BUN 5 mg/dL L mg/dL (7-23) Creatinine 0.5 mg/dL L mg/dL (0.6-1.0) Estimated GFR > 60 Glucose 98 mg/dL mg/dL (70-100) Calcium 9.9 mg/dL mg/dL (8.5-10.4) Medications Given: Discontinued Medications Benzocaine (Hurricaine Blair) 1 each MM EDNOW ONE Stop: 04/16/17 22:34 Last Admin: 04/16/17 22:36 Dose: 1 each Lidocaine (Uroject Lidocaine 2% Jelly) 20 ml UR EDNOW ONE Stop: 04/16/17 22:34 Last Admin: 04/16/17 22:36 Dose: 20 ml Morphine Sulfate (Morphine) 4 mg IVP EDNOW ONE Stop: 04/16/17 22:34 Last Admin: 04/16/17 22:36 Dose: 4 mg Ondansetron HCl (Zofran) 4 mg IVP EDNOW ONE Stop: 04/16/17 20:38 Last Admin: 04/16/17 20:46 Dose: 4 mg Ondansetron HCl (Zofran) 4 mg IVP EDNOW ONE Stop: 04/16/17 22:34 Last Admin: 04/16/17 22:35 Dose: 4 mg Departure - Departure Disposition: [facility] Inpatient Acute Clinical Impression: Small bowel obstruction Condition: Fair Referrals: Fernanda Mcfadden MD [Primary Care Provider] - As per Instructions
[2017-04-16 21:16] LABS: ANION GAP 15 mEq/L (8-16); CALCIUM 9.9 mg/dL (8.5-10.4); CARBON DIOXIDE 20 mEq/l (22-31); CHLORIDE 94 mEq/L (97-110); CREATININE 0.5 mg/dL (0.6-1.0); GLOMERULAR FILTRATION RATE > 60; GLUCOSE 98 mg/dL (70-100); POTASSIUM 3.5 mEq/L (3.5-5.2); SODIUM 129 mEq/L (134-144)
[2017-04-16 21:23] LABS: % IMMATURE GRANULYOCYTES 0.3 % (0.0-1.1); ABSOLUTE IMMATURE GRANULOCYTES 0.02 10^3/uL (0.00-0.10); ADD DIFF? NO; ADD MORPH? NO; ADD SCAN? NO; ATYPICAL LYMPHOCYTE FLAG 30 (0-99); FRAGMENT RBC FLAG 20 (0-99); HEMATOCRIT 38.5 % (38.0-47.0); HEMOGLOBIN 13.3 g/dL (12.6-16.3); LEFT SHIFT FLG 0 (0-99); LIPEMIA HEMOLYSIS FLAG 90 (0-99); MEAN CELL HEMOGLOBIN 31.2 pg (27.9-34.1); MEAN CELL HEMOGLOBIN CONCENTR. 34.5 g/dL (32.4-36.7); MEAN CELL VOLUME 90.4 fL (81.5-99.8); MEAN PLATELET VOLUME 9.7 fL (8.7-11.7); PLATELET CLUMPS FLAG 0 (0-99); PLATELET COUNT 429 10^3/uL (150-400); RED BLOOD CELL COUNT 4.26 10^6/uL (4.18-5.33); RED CELL DISTRIBUTION WIDTH 18.8 % (11.5-15.2)
[2017-04-16] MEDS ORDERED: ONDANSETRON 4 MG/2 ML VIAL ONE (22:20)
[2017-04-16] MEDS ORDERED: BENZOCAINE UNIT DOSE SPRAY HURRICAINE MM ONE ×3 (22:20→22:33)
[2017-04-16] MEDS ORDERED: LIDOCAINE 2% JELLY 20 ML (UROJECT) ONE (22:20)
[2017-04-16] MEDS ORDERED: LIDOCAINE 2% JELLY 20 ML (UROJECT) UR ONE (22:33)
[2017-04-16] MEDS ORDERED: IOPAMIDOL (ISOVUE-300) 100 ML BTL ONE (22:56)
[2017-04-16] MEDS ORDERED: ONDANSETRON 4 MG/2 ML VIAL IVP PRN (23:46)
[2017-04-16] MEDS ORDERED: ACETAMINOPHEN 650 MG SUPP PR PRN (23:46)
[2017-04-16] MEDS ORDERED: PROMETHAZINE HCL 25 MG/ML INJ IVP PRN (23:46)
[2017-04-17] MEDS ORDERED: LIDOCAINE 2% VISCOUS 15 ML UDCUP PO PRN (03:18)
[2017-04-17] MEDS: NS 1,000 ML IV SCH ×2 (04:25→15:56)
[2017-04-17] MEDS: HYDROmorphONE/DILAUDID 1 MG/ML INJ IVP PRN ×2 (04:33→20:44)
[2017-04-17] MEDS: PHENOL 177 ML THROAT SPRAY PO PRN ×6 (04:35→18:45)
[2017-04-17 04:51] LABS: % IMMATURE GRANULYOCYTES 0.4 % (0.0-1.1); ABSOLUTE IMMATURE GRANULOCYTES 0.03 10^3/uL (0.00-0.10); ADD DIFF? NO; ADD MORPH? NO; ADD SCAN? NO; ATYPICAL LYMPHOCYTE FLAG 30 (0-99); FRAGMENT RBC FLAG 20 (0-99); HEMATOCRIT 35.4 % (38.0-47.0); HEMOGLOBIN 12.1 g/dL (12.6-16.3); LEFT SHIFT FLG 0 (0-99); LIPEMIA HEMOLYSIS FLAG 90 (0-99); MEAN CELL HEMOGLOBIN 31.1 pg (27.9-34.1); MEAN CELL HEMOGLOBIN CONCENTR. 34.2 g/dL (32.4-36.7); MEAN PLATELET VOLUME 9.7 fL (8.7-11.7); PLATELET CLUMPS FLAG 0 (0-99); PLATELET COUNT 357 10^3/uL (150-400); RED BLOOD CELL COUNT 3.89 10^6/uL (4.18-5.33); RED CELL DISTRIBUTION WIDTH 18.7 % (11.5-15.2)
[2017-04-17 05:06] LABS: ALANINE AMINOTRANSFERASE 26 IU/L (9-52); ALBUMIN 3.9 g/dL (3.5-5.0); ALKALINE PHOSPHATASE 71 IU/L (38-126); ANION GAP 15 mEq/L (8-16); ASPARTATE AMINOTRANSFERASE 20 IU/L (14-46); BILIRUBIN,TOTAL 0.4 mg/dL (0.1-1.4); CALCIUM 9.3 mg/dL (8.5-10.4); CARBON DIOXIDE 18 mEq/l (22-31); CHLORIDE 100 mEq/L (97-110); CREATININE 0.5 mg/dL (0.6-1.0); GLOMERULAR FILTRATION RATE > 60; GLUCOSE 81 mg/dL (70-100); MAGNESIUM 1.7 mg/dL (1.6-2.3); POTASSIUM 3.8 mEq/L (3.5-5.2); SODIUM 133 mEq/L (134-144); TOTAL PROTEIN 6.6 g/dL (6.3-8.2)
--- NOTE | 2017-04-17 05:39 | GHP ---
[f rep st] HISTORY AND PHYSICAL DATE OF ADMISSION: 04/16/2017 DATE OF SERVICE: 04/16/2017 SOURCE: Patient provides history, appears reliable. Her NIHARIKA was also reviewed and case discussed with the ED provider. CHIEF COMPLAINT: Abdominal pain. HISTORY OF PRESENT ILLNESS: This is a pleasant 66-year-old female with past medical history significant for scleroderma, CREST, fibromyalgia, osteoporosis, bipolar disorder, hypothyroidism, and history of colon cancer status post partial colectomy, who presents to the emergency department today with complaints of worsening abdominal pain, nausea, and distention. Patient was again noted with history of colon cancer and recurrent small bowel obstruction. She was just recently discharged on 04/13/2017 after conservative management. Patient was able to tolerate some light diet with positive bowel movements. The patient appeared to be doing better. The patient reports she was having a few bowel movements at home with more like watery diarrhea, but no melena or hematochezia. Her bloating did start to trend down; however, over the course of a few days, the patient states that she began to notice increased bloating, nausea without vomiting, but some dry heaving. She denied any fevers or chills. Patient states that she had previously weaned herself off pain medications, and so was not taking anything at home. She had poor oral intake secondary to her nausea, and reports persistent weight loss. REVIEW OF SYSTEMS: Patient denies any fevers or chills. SKIN: No rashes or sores. ENT: Patient does complain of some sore throat since placement of an NG tube, but no history of rhinorrhea or sore throat prior. EYES: Patient denies any acute changes in vision or ocular pain. CV: No chest pain or palpitations. RESPIRATORY: Patient is complaining of a little bit of a cough, but no shortness of breath. GI: See HPI. : No dysuria or hematuria. MUSCULOSKELETAL: Occasional various joint pains and patient mostly complaining currently of stomach cramping. NEURO: Patient denies any headache. No numbness or tingling, or a focal weakness. PSYCH: Patient denies any anxiety or depression out of normal. She states that her bipolar disorder is very well controlled. ALLERGIES: Multiple, including lorazepam, fluconazole, sulfa, penicillin, Levaquin, Haldol, quinolones, Ambien, frandy and pineapple. HOME MEDICATIONS: Not verified, Lamictal 300 mg p.o. daily, salt tabs 1000 mg p.o. t.i.d., simvastatin 10 mg p.o. daily, Protonix 40 mg p.o. daily, Skelaxin 800 mg p.o. t.i.d. p.r.n., Lidocaine 2% viscous applied topically to ulcerations in the mucous membranes, levothyroxine 75 mcg p.o. daily, clopidogrel 75 mg p.o. daily, cariprazine 3 mg p.o. daily, benztropine 2 mg p.o. daily, albuterol 4 times a day p.r.n., Tylenol 650 p.o. q.4 hours p.r.n. for pain. PAST MEDICAL HISTORY: Significant for scleroderma, CREST, fibromyalgia, history of alcohol abuse, CAD, osteoporosis, bipolar disorder, hypothyroidism, colon cancer, and hyponatremia related to SIADH. PAST SURGICAL HISTORY: Significant for cholecystectomy, partial colectomy, appendectomy. FAMILY HISTORY: Significant for sister with cutaneous T-cell lymphoma and a cousin with bipolar disorder, paternal grandfather committed suicide. SOCIAL HISTORY: The patient resides at assisted living. She smokes 3 cigarettes per day. She does not use any illicit drugs. Patient drinks alcohol once weekly at happy hour on Friday. CODE STATUS: Patient with advanced directives. She desires to be DNR. Her returned case inspector, Lyla Arredondo, and her sister act as proxy if needed. PHYSICAL EXAMINATION: VITAL SIGNS: On arrival, blood pressure 169/90, heart rate 100, respiratory rate 18, O2 sat 95% on room air, temperature 36.8. Vitals on the floor, blood pressure 157/77, heart rate 83, respiratory rate 28, oxygen 93% on room air, temperature 36.7. GENERAL: No acute distress, pleasant , elderly, frail-appearing cachectic lady is lying comfortably in bed. She has an NG tube in place. Appears chronically ill. HEAD: Normocephalic, atraumatic. EYES: Extraocular muscles intact. Pupils equal, round, reactive to light bilaterally and symmetric. No scleral icterus or conjunctival injection. ENT: Mucous membranes appear moist. No oropharyngeal erythema or exudates. NECK: Supple. Trachea midline. CV: Regular rate and rhythm. No murmurs, rubs, or gallops appreciated. No chest wall tenderness to palpation. RESPIRATORY: Lungs are clear to auscultation bilaterally. No wheezes, rales, or rhonchi. ABDOMEN: Distended, soft in the upper abdomen. She has an umbilical hernia present, that is reducible without any bowel sounds. : No Zaman in place. No suprapubic tenderness to palpation. MUSCULOSKELETAL: Generalized deconditioning. Patient able to sit up independently. Strength 4/ 5 in upper and lower extremities bilaterally. NEURO: Grossly nonfocal. Cranial nerves 2 through 12 are intact, symmetric bilaterally. Patient is awake , alert, and oriented x3. No focal deficits. PSYCH: Patient does appear a little bit anxious, but she is otherwise very pleasant and cooperative. LABORATORY STUDIES: WBC 7.26, H and H 13.3 and 38.5, MCV 90.4, platelet count is 429. Sodium is 129, potassium is 3.5, chloride 94, CO2 is 20, BUN 5, creatinine 0.5, GFR of greater than 60, glucose 98, calcium 9.9. IMAGING STUDIES: X-ray images reviewed myself, as well as radiology report showing persistent moderate dilated and predominantly small bowel loops suggestive of moderate distal small bowel obstruction similar to prior study. No free air. CT abdomen and pelvis showing persistent moderate to marked dilated predominantly small bowel within the abdomen, some dilation of large bowel with anastomosis between large and small bowel in the right upper abdomen , focal herniation anterior wall mid transverse colon through the ventral hernia without wall thickening, some nondilated loops of small bowel right mid abdomen to upper pelvis. No free air. NG tube present. Moderate dilation of the distal esophagus. Also, moderate dilation of the second and third portion of the duodenum and the relative narrowing of the duodenum between the SMA and aorta. Previous cholecystectomy, moderate dilation of common bile ducts around the level of the danilo measuring 25 mm. Does not appear to be tapering of the distal common bile duct. Some mild intrahepatic biliary ductal dilation. No obstruction or solid mass. Stable mild anterior wedge compression fracture, superior endplate of T11-12. Repeat x-ray showing moderate distention of small bowel loops with tip of NG tube in the gastric fundus. ASSESSMENT AND PLAN: Pleasant 66-year-old female with history of colon cancer, status post resection, recurrent small bowel obstruction, now with abdominal pain. 1. Small bowel obstruction. No obvious transition site noted on CT scan. Patient was able to tolerate placement of a nasogastric tube at this time. On last hospitalization, there were difficulties and patient ultimately refused; however, at this time, the patient reports that her distention feels a little lessened and her pain has improved. Will continue with a nasogastric tube to low intermittent suction, and allow for some bowel rest similarly to previous hospital stay. Will plan to further discuss with General Surgery in the morning. 2. History of colon cancer status post resection. Plan as above. 3. Hyponatremia with history of syndrome of inappropriate antidiuretic hormone secretion. Patient at this time does appear a little bit dehydrated as she has not had significant oral intake for the last several days. Will give her some gentle diuresis and monitor her sodium closely. 4. Thrombocytosis likely reactive in nature. Will plan to repeat in the morning. Intravenous fluid hydration as above. 5. Hypochloridemia is related to hyponatremia. Continue to monitor with BMP. 6. Patient's chronic medical problems: Scleroderma, calcinosis, Raynaud phenomenon, esophageal dysmotility, sclerodactyly, and telangiectasia, fibromyalgia, history of alcohol abuse, coronary artery disease, osteoporosis, bipolar disorder, hypothyroidism, and colon cancer. Continue with supportive care. Once patient's diet is advanced, will resume any appropriate home medications. 7. Elevated blood pressures without hypertension, likely related to pain. Blood pressures have improved since arrival from the emergency room, and will continue to try to treat her pain, hydralazine p.r.n. if blood pressures continue to rise, but will hold off at this time. 8. Fluids, electrolytes and nutrition. Intravenous fluids as noted above. Monitor electrolytes and particularly sodium with history of syndrome of inappropriate antidiuretic hormone secretion with morning BMP. Diet n.p.o. Patient has a nasogastric tube to low intermittent suction. May do a little bit of ice chips. She reports this is soothing for her. 9. Prophylaxis. Sequential compression devices, holding anticoagulation pending surgery assessment, but again emphasize with the patient goal is to follow with conservative management. At this time, she is amenable to plan and reports that she is feeling better. 10. Code status is do not resuscitate, do not intubate. 11. Disposition. Patient admitted to inpatient status on the Med-Surg floor. /[id number]/MODL MTDD
--- NOTE | 2017-04-17 11:34 | ASMTCMCOM ---
CM Note CM Note Notes: Pt recently dc'd from [facility] on 04/13, she lives at [facility] but is independent with mobility. She also has a [employer] Lyla Arredondo who works with her, number in chart. ROSANGELA w/f Date Signed: 04/17/2017 11:33 AM Electronically Signed By:Melany Bernstein RN
--- NOTE | 2017-04-17 13:06 | HOSPPROG ---
Hospitalist Progress Note Assessment/Plan: #SBO: conservative treatment with NG suction, IVFs, NPO. Lytes WNL -Congentin may be cause; was started 3 weeks ago. Did have prior colectomy #Hyponatremia: h/o SIADH, but dry here. Gentle IVF #Fibromyalgia: resume home meds once taking PO #Hypothyroidism: LT4 #Recent dental implant with mouth ulcer: PRN lidocaine, lozenges #Disp: warrants inpt admission with SBO, requiring IVFs, NG tube Objective: Vital Signs Temp Pulse Resp BP Pulse Ox 36.5 C 61 20 97/51 L 92 04/17/17 11:55 04/17/17 12:32 04/17/17 12:32 04/17/17 12:32 04/17/17 11:55 Laboratory Results 04/17/17 04:21 04/17/17 04:21 04/16/17 04/17/17 04/18/17 05:59 05:59 05:59 Intake Total 0 Output Total 1400 Balance -1400 - Physical Exam Constitutional: no apparent distress Eyes: PERRL Ears, Nose, Mouth, Throat: other (NG in place) Cardiovascular: regular rate and rhythym, no murmur, rub, or gallop Respiratory: no respiratory distress, no rales or rhonchi Gastrointestinal: soft, non-tender abdomen, distension, No no palpable masses Genitourinary: no bladder fullness Skin: warm Musculoskeletal: full muscle strength Neurologic: AAOx3, CN II-XII Intact Psychiatric: interacting appropriately, flat affect ICD10 Worksheet Patient Problems: Problems Problem Status Onset Small bowel obstruction Acute Abdominal pain Acute Colon adenocarcinoma Acute Hyponatremia Acute Hyponatremia syndrome Acute Hypotension Acute Hypoxia Acute Leukocytosis Acute Lower respiratory infection Acute Periumbilical hernia Acute
[2017-04-17] MEDS: LIDOCAINE 2% VISCOUS 15 ML UDCUP PO PRN (18:45)
[2017-04-17] MEDS ORDERED: NS 500 ML IV ONE (19:28)
[2017-04-18] MEDS: NS 1,000 ML IV SCH (03:40)
[2017-04-18] MEDS: HYDROmorphONE/DILAUDID 1 MG/ML INJ IVP PRN ×4 (03:47→22:44)
[2017-04-18] MEDS: PHENOL 177 ML THROAT SPRAY PO PRN ×4 (05:00→20:01)
--- NOTE | 2017-04-18 09:25 | HOSPPROG ---
Hospitalist Progress Note Assessment/Plan: #SBO: had small BM today. No N/V/ Clamp NG. IVFs, NPO. Lytes WNL. Small bowel follow-through. Suspect due to adhesions with prior bowel surgeries. -Congentin can contribute to ileus. She will talk to her PCP about this med #Hypoglycemia: 40 this morning. Improved with D10W, start D5 maintenance fluids #Hyponatremia: h/o SIADH, but dry here. Gentle IVF #Fibromyalgia: resume home meds once taking PO #Hypothyroidism: LT4 #Recent dental implant with mouth ulcer: PRN lidocaine, lozenges #Disp: warrants inpt admission with SBO, requiring IVFs, NG tube Subjective: no N/V. Small BM this morning Objective: Vital Signs Temp Pulse Resp BP Pulse Ox 36.5 C 66 24 H 110/49 L 98 04/18/17 07:24 04/18/17 07:24 04/18/17 07:24 04/18/17 07:24 04/18/17 07:24 Laboratory Results 04/17/17 04:21 04/17/17 04/18/17 04/19/17 05:59 05:59 05:59 Intake Total 0 2416 Output Total 1800 500 700 Balance -1800 1916 -700 - Physical Exam Constitutional: no apparent distress Ears, Nose, Mouth, Throat: moist mucous membranes, other (NG in place) Cardiovascular: regular rate and rhythym, no murmur, rub, or gallop Respiratory: no respiratory distress, no rales or rhonchi Gastrointestinal: normoactive bowel sounds, soft, non-tender abdomen, No tenderness, No distension Genitourinary: no bladder fullness Skin: warm Musculoskeletal: full muscle strength Neurologic: CN II-XII Intact Psychiatric: interacting appropriately ICD10 Worksheet Patient Problems: Problems Problem Status Onset Small bowel obstruction Acute Abdominal pain Acute Colon adenocarcinoma Acute Hyponatremia Acute Hyponatremia syndrome Acute Hypotension Acute Hypoxia Acute Leukocytosis Acute Lower respiratory infection Acute Periumbilical hernia Acute
[2017-04-18 09:28] LABS: GLUCOSE 29 mg/dL (70-100)
[2017-04-18] MEDS ORDERED: D50W 25 GM/50 ML SYR IVP PRN (09:31)
[2017-04-18] MEDS ORDERED: GLUCOSE-INSTA 15 GM TUBE ONE (09:33)
[2017-04-18] MEDS: D5W NS 1,000 ML IV SCH ×2 (09:36→19:54)
[2017-04-18] MEDS: D10W 250 ML PRN HYPOGLYCEMIA IV ×2 (09:50→14:58)
[2017-04-18] MEDS ORDERED: GLUCOSE-INSTA 15 GM TUBE PO PRN (10:27)
[2017-04-18 10:59] LABS: ANION GAP 20 mEq/L (8-16); CALCIUM 8.9 mg/dL (8.5-10.4); CARBON DIOXIDE 12 mEq/l (22-31); CHLORIDE 106 mEq/L (97-110); CREATININE 0.5 mg/dL (0.6-1.0); GLOMERULAR FILTRATION RATE > 60; POTASSIUM 3.5 mEq/L (3.5-5.2); SODIUM 138 mEq/L (134-144)
[2017-04-18 11:49] LABS: GLUCOSE 30 mg/dL (70-100)
[2017-04-18] MEDS: LIDOCAINE 2% VISCOUS 15 ML UDCUP PO PRN (20:01)
[2017-04-19] MEDS: D5W NS 1,000 ML IV SCH ×3 (04:25→20:33)
[2017-04-19] MEDS: PHENOL 177 ML THROAT SPRAY PO PRN ×3 (04:53→20:28)
[2017-04-19] MEDS: HYDROmorphONE/DILAUDID 1 MG/ML INJ IVP PRN ×4 (04:54→22:19)
[2017-04-19 06:09] LABS: ANION GAP 11 mEq/L (8-16); CALCIUM 8.3 mg/dL (8.5-10.4); CARBON DIOXIDE 18 mEq/l (22-31); CHLORIDE 107 mEq/L (97-110); CREATININE 0.4 mg/dL (0.6-1.0); GLOMERULAR FILTRATION RATE > 60; GLUCOSE 90 mg/dL (70-100); POTASSIUM 3.4 mEq/L (3.5-5.2); SODIUM 136 mEq/L (134-144)
[2017-04-19] MEDS ORDERED: POTASSIUM CL 20 MEQ TAB PO ONE (08:21)
--- NOTE | 2017-04-19 08:21 | HOSPPROG ---
Hospitalist Progress Note Assessment/Plan: #SBO: small bowel follow through shows dynamic ileus. Increased abd distension today. Is passing flatus. Unclamp NG and NPO trial. Repeat AXR in morning. Suspect due to adhesions with prior bowel surgeries. -Congentin can contribute to ileus. She will talk to her PCP about this med #Hypoglycemia: resolved with D5W #Hypokalemia: replete #Hyponatremia: resolved. h/o SIADH, but dry here. Gentle IVF #Fibromyalgia: resume home meds once taking PO #Hypothyroidism: LT4 #Recent dental implant with mouth ulcer: PRN lidocaine, lozenges #Disp: warrants inpt admission with SBO, requiring IVFs, NG tube Subjective: increased abd distension. passing flatus. No N/V Objective: Vital Signs Temp Pulse Resp BP Pulse Ox 36.5 C 73 18 128/58 H 90 L 04/19/17 04:00 04/19/17 06:36 04/19/17 04:00 04/19/17 06:36 04/19/17 06:36 Laboratory Results 04/17/17 04:21 04/19/17 04:28 04/18/17 04/19/17 04/20/17 05:59 05:59 05:59 Intake Total 2416 3297 Output Total 500 2550 Balance 1916 747 - Physical Exam Constitutional: no apparent distress, other (thin) Eyes: PERRL Ears, Nose, Mouth, Throat: moist mucous membranes, hearing normal, other (NG in place) Cardiovascular: regular rate and rhythym, no murmur, rub, or gallop Respiratory: no respiratory distress, no rales or rhonchi Gastrointestinal: normoactive bowel sounds, soft, non-tender abdomen, distension Genitourinary: no bladder fullness Skin: warm Musculoskeletal: full muscle strength Neurologic: AAOx3, CN II-XII Intact Psychiatric: interacting appropriately ICD10 Worksheet Patient Problems: Problems Problem Status Onset Small bowel obstruction Acute Abdominal pain Acute Colon adenocarcinoma Acute Hyponatremia Acute Hyponatremia syndrome Acute Hypotension Acute Hypoxia Acute Leukocytosis Acute Lower respiratory infection Acute Periumbilical hernia Acute
[2017-04-19] MEDS ORDERED: HYDROmorphONE/DILAUDID 2 MG/ML INJ IVP PRN (22:30)
[2017-04-20] MEDS: PHENOL 177 ML THROAT SPRAY PO PRN ×5 (02:41→20:56)
[2017-04-20] MEDS: D5W NS 1,000 ML IV SCH ×3 (04:29→20:54)
[2017-04-20 05:09] LABS: ANION GAP 10 mEq/L (8-16); CALCIUM 8.5 mg/dL (8.5-10.4); CARBON DIOXIDE 21 mEq/l (22-31); CHLORIDE 105 mEq/L (97-110); CREATININE 0.5 mg/dL (0.6-1.0); GLOMERULAR FILTRATION RATE > 60; GLUCOSE 90 mg/dL (70-100); POTASSIUM 3.3 mEq/L (3.5-5.2); SODIUM 136 mEq/L (134-144)
--- NOTE | 2017-04-20 08:16 | HOSPPROG ---
Hospitalist Progress Note Assessment/Plan: #Small bowel ileus: small bowel follow through shows dynamic ileus. Distention better today after unclamping NG. Passing flatus. May trial clears again. Repeat AXR in morning. Suspect due to adhesions with prior bowel surgeries, but recently started on Congentin that can cause constipation. #Hypoglycemia: resolved with D5W #Hypokalemia: replete again today #Hyponatremia: resolved. h/o SIADH, but dry here. Gentle IVF #Fibromyalgia: resume home meds once taking PO #Restless leg: stop Cogentin #Hypothyroidism: LT4 #Recent dental implant with mouth ulcer: PRN lidocaine, lozenges #Disp: warrants inpt admission with SBO, requiring IVFs, NG tube Subjective: no n/v. Passing flatus Objective: Vital Signs Temp Pulse Resp BP Pulse Ox 36.9 C 63 18 155/66 H 92 04/20/17 07:15 04/20/17 07:15 04/20/17 07:15 04/20/17 07:15 04/20/17 07:15 Laboratory Results 04/17/17 04:21 04/20/17 04:19 04/19/17 04/20/17 04/21/17 05:59 05:59 05:59 Intake Total 3297 1365 Output Total 2550 1400 Balance 747 -35 ICD10 Worksheet Patient Problems: Problems Problem Status Onset Small bowel obstruction Acute Abdominal pain Acute Colon adenocarcinoma Acute Hyponatremia Acute Hyponatremia syndrome Acute Hypotension Acute Hypoxia Acute Leukocytosis Acute Lower respiratory infection Acute Periumbilical hernia Acute
[2017-04-20] MEDS: POTASSIUM Cl (KCl) 100 ML IV SCH ×3 (09:37→11:49)
--- NOTE | 2017-04-20 09:55 | ASMTCMCOM ---
CM Note CM Note Notes: Patient ambulating around unit today, using cane with no assistance. Per patient, has PT/OT available to her at the [facility] if recommended. Patient still has NG, per RN anticipate another 24 hours with NG clamped. Then, will slowly advance diet. Discharge date unknown. Patient has supportive friends, returned case inspector. Will coordinate discharge with them when appropriate. Date Signed: 04/20/2017 09:55 AM Electronically Signed By:Adelaide Marina RN
[2017-04-20] MEDS ORDERED: BISACODYL 10 MG SUPP PR PRN (12:27)
[2017-04-20] MEDS: METAXALONE 800 MG TAB PO SCH ×2 (15:01→20:44)
[2017-04-20] MEDS: CLOPIDOGREL BISULFATE 75 MG TAB PO SCH (15:01)
[2017-04-20] MEDS: PANTOPRAZOLE SODIUM 40 MG TAB PO SCH (20:44)
[2017-04-20] MEDS: HYDROmorphONE/DILAUDID 2 MG/ML INJ IVP PRN (20:44)
[2017-04-20] MEDS: PRAVASTATIN SODIUM 20 MG TAB PO SCH (20:44)
[2017-04-21] MEDS: HYDROmorphONE/DILAUDID 2 MG/ML INJ IVP PRN ×2 (04:49→20:57)
[2017-04-21 05:20] LABS: ANION GAP 11 mEq/L (8-16); CALCIUM 8.7 mg/dL (8.5-10.4); CARBON DIOXIDE 20 mEq/l (22-31); CHLORIDE 102 mEq/L (97-110); CREATININE 0.4 mg/dL (0.6-1.0); GLOMERULAR FILTRATION RATE > 60; GLUCOSE 97 mg/dL (70-100); POTASSIUM 3.4 mEq/L (3.5-5.2); SODIUM 133 mEq/L (134-144)
[2017-04-21] MEDS: PHENOL 177 ML THROAT SPRAY PO PRN ×2 (06:54→20:50)
[2017-04-21] MEDS: CLOPIDOGREL BISULFATE 75 MG TAB PO SCH (08:41)
[2017-04-21] MEDS: METAXALONE 800 MG TAB PO SCH ×3 (08:41→20:50)
[2017-04-21] MEDS: D5W NS 1,000 ML IV SCH (08:41)
[2017-04-21] MEDS ORDERED: POTASSIUM CL 20 MEQ TAB PO ONE (09:33)
[2017-04-21] MEDS: SODIUM CHLORIDE 1,000 MG TAB PO SCH ×2 (11:30→16:59)
[2017-04-21] MEDS: BENZTROPINE MESYLATE 1 MG TAB PO SCH (11:30)
[2017-04-21] MEDS: lamoTRIgine 100 MG TAB PO SCH (11:30)
--- NOTE | 2017-04-21 11:49 | HOSPPROG ---
Hospitalist Progress Note Assessment/Plan: #Small bowel ileus: improved. Having BMs, gas. No N/V. Advance diet. -Suspect due to adhesions with prior bowel surgeries, but recently started on Congentin that can cause constipation. #Hypoglycemia: resolved with D5W #Hypokalemia: replete again today #Hyponatremia: dropped to 133. Initially dry. Stop IVFs and resume Na tablets #Fibromyalgia: resume home meds once taking PO #Bipolar d/o: resume home meds #h/o CAD: Plavix #Restless leg: stop Cogentin #Hypothyroidism: LT4 #Recent dental implant with mouth ulcer: PRN lidocaine, lozenges #Disp: If patient tolerating full diet tonight, can DC in morning Subjective: had diarrhea. No N/V. Hungry Objective: Vital Signs Temp Pulse Resp BP Pulse Ox 36.5 C 56 L 24 H 152/67 H 94 04/21/17 08:00 04/21/17 08:00 04/21/17 08:00 04/21/17 08:00 04/21/17 08:00 Laboratory Results 04/17/17 04:21 04/21/17 04:26 04/20/17 04/21/17 04/22/17 05:59 05:59 05:59 Intake Total 1365 1800 Output Total 1400 2400 Balance -35 -600 - Physical Exam Constitutional: no apparent distress Eyes: PERRL Ears, Nose, Mouth, Throat: moist mucous membranes, hearing normal Cardiovascular: regular rate and rhythym, no murmur, rub, or gallop Respiratory: no respiratory distress, no rales or rhonchi Gastrointestinal: normoactive bowel sounds, distension (min distension, soft, NT , quiet BS througout) Genitourinary: no bladder fullness Skin: warm Musculoskeletal: full muscle strength Neurologic: AAOx3, CN II-XII Intact Psychiatric: interacting appropriately ICD10 Worksheet Patient Problems: Problems Problem Status Onset Small bowel obstruction Acute Abdominal pain Acute Colon adenocarcinoma Acute Hyponatremia Acute Hyponatremia syndrome Acute Hypotension Acute Hypoxia Acute Leukocytosis Acute Lower respiratory infection Acute Periumbilical hernia Acute
--- NOTE | 2017-04-21 14:14 | ASMTCMCOM ---
CM Note CM Note Notes: ROSANGELA spoke to JOHNSON Chamberlain regarding pt d/c POC. Pt will discharge back to [facility]. CM recieved a call from Lyla, a case management in the community. CM provided her updates. There may be a chance that her NG tube will be removed today. No therapies ordered at this time. CM available for changes. Date Signed: 04/21/2017 02:13 PM Electronically Signed By:ENRRIQUE Robles
[2017-04-21] MEDS ORDERED: Cariprazine Hcl [Vraylar] 3 MG PO SCH (18:00)
[2017-04-21] MEDS: PANTOPRAZOLE SODIUM 40 MG TAB PO SCH (20:49)
[2017-04-21] MEDS: PRAVASTATIN SODIUM 20 MG TAB PO SCH (20:50)
[2017-04-21] MEDS ORDERED: Eszopiclone [Lunesta] 2 MG PO SCH (21:00)
[2017-04-21 22:57] VITALS: BP 149/75
[2017-04-22] MEDS: METAXALONE 800 MG TAB PO SCH (07:52)
[2017-04-22] MEDS: PHENOL 177 ML THROAT SPRAY PO PRN (07:52)
[2017-04-22] MEDS: BENZTROPINE MESYLATE 1 MG TAB PO SCH (07:58)
[2017-04-22] MEDS: CLOPIDOGREL BISULFATE 75 MG TAB PO SCH (07:59)
[2017-04-22] MEDS: lamoTRIgine 100 MG TAB PO SCH (07:59)
[2017-04-22] MEDS: SODIUM CHLORIDE 1,000 MG TAB PO SCH (07:59)
[2017-04-22 08:41] VITALS: PULSE 70; RESP 14; TEMP 97.7; O2SAT 94
[2017-04-22] MEDS ORDERED: Herbals/Supplements -Info Only PO SCH (09:00)
--- NOTE | 2017-04-22 10:22 | HOSPPROG ---
Hospitalist Progress Note Assessment/Plan: Small bowel ileus: improved. Having BMs, gas. No N/V. Advance diet. Suspect due to adhesions with prior bowel surgeries, but recently started on Congentin that can cause constipation. improved by imaging (interp by me) and sx Hypoglycemia: resolved with D5W Hypokalemia: replete again today Hyponatremia: dropped to 133. Initially dry. Stop IVFs and resume Na tablets outpt followup Fibromyalgia: resume home meds once taking PO Bipolar d/o: resume home meds h/o CAD: Plavix Restless leg: stop Cogentin Hypothyroidism: LT4 Recent dental implant with mouth ulcer: PRN lidocaine, lozenges Disp: home today > 30 minutes Subjective: asking for dc Objective: Vital Signs Temp Pulse Resp BP Pulse Ox 36.5 C 70 14 149/75 H 94 04/22/17 08:00 04/22/17 08:00 04/22/17 08:00 04/22/17 08:00 04/22/17 08:00 Laboratory Results 04/17/17 04:21 04/21/17 04:26 04/21/17 04/22/17 04/23/17 05:59 05:59 05:59 Intake Total 1800 1800 Output Total 2400 1800 Balance -600 0 - Physical Exam Constitutional: no apparent distress, appears nourished Eyes: PERRL, anicteric sclera Ears, Nose, Mouth, Throat: moist mucous membranes, hearing normal Cardiovascular: regular rate and rhythym, no murmur, rub, or gallop Respiratory: no respiratory distress, no rales or rhonchi Gastrointestinal: normoactive bowel sounds, soft, non-tender abdomen, No guarding, No rebound, No distension Genitourinary: no bladder fullness, mckinley in urethra Skin: warm, normal color Musculoskeletal: full muscle strength, no muscle tenderness Neurologic: AAOx3, sensation intact bilaterally ICD10 Worksheet Patient Problems: Problems Problem Status Onset Small bowel obstruction Acute Abdominal pain Acute Colon adenocarcinoma Acute Hyponatremia Acute Hyponatremia syndrome Acute Hypotension Acute Hypoxia Acute Leukocytosis Acute Lower respiratory infection Acute Periumbilical hernia Acute
--- NOTE | 2017-04-22 10:23 | PDIAF ---
- Diagnosis Diagnosis: SBO Code Status: Do Not Resuscitate - Medication Management Discharge Medications: Medications to Continue on Transfer Clopidogrel Bisulfate [Plavix (*)] 75 mg PO DAILY #14 tab 04/16/14 [Last Taken 04/10/17] Simvastatin [Zocor 10 mg] 10 mg PO HS 06/21/16 [Last Taken 04/16/17] Levothyroxine [Synthroid 75 mcg (*)] 75 mcg PO TH@06 08/22/16 [Last Taken ] Acetaminophen [Tylenol 325mg (*)] 650 mg PO Q4HRS PRN #0 tab 10/06/16 [Last Taken Unknown] Cariprazine HCl [Vraylar] 3 mg PO DAILY@18 10/15/16 [Last Taken 04/16/17] Pantoprazole Sodium [Protonix 40mg (*)] 20 mg PO HS 10/27/16 [Last Taken ] Benztropine Mesylate [Cogentin (*)] 1 mg PO DAILY 04/11/17 [Last Taken 04/16/17] Herbals/Supplements -Info Only 1 ea PO DAILY 04/11/17 [Last Taken Unknown] Metaxalone [Skelaxin 800 mg (*)] 800 mg PO TID@,,04/11/17 [Last Taken 16:00] Sodium Chloride [Salt Tablet] 1,000 mg PO TID@,,04/11/17 [Last Taken 18:00] Eszopiclone [Lunesta] 2 mg PO HS 04/17/17 [Last Taken 04/15/17] lamoTRIgine [LamICTAL 100 MG (*)] 300 mg PO DAILY 04/17/17 [Last Taken 04/16/17] Discharge Medications: Refer to the Discharge Home Medication list for PRN reason. - Orders Services needed: Home Care, Physical Therapy, Occupational Therapy Home Care Face to Face: I certify that this patient was under my care and that I had the required [id number] encounter meeting the encounter requirements on the discharge day. My findings support the fact that the patient is homebound as defined in Home Care Face to Face Continued: CMS Chapter 7 Medicare Benefits Manual 30.1.1 , The condition of the patient is such that there exists a normal inability to leave home and consequently, leaving home would require a considerable and taxing effort. - Follow Up Care Current Providers and Referrals: Fernanda Mcfadden MD [Primary Care Provider] - As per Instructions
--- NOTE | 2017-04-22 10:45 | ASMTCMCOM ---
CM Note CM Note Notes: Pt is being discharged back to [facility] in [place]. CM spoke w/ Thersea at [facility] and confirmed a discharge time. Pt's friend will be transporting pt. CM faxed over orders. CM provided JOHNSON Gabriel w/ phone number to provide report. CM available for changes. Date Signed: 04/22/2017 10:45 AM Electronically Signed By:ENRRIQUE Robles
--- NOTE | 2017-04-22 15:12 | ASDISCHSUM ---
Discharge Information Plan Status:Assisted Living Medically Cleared to Leave:04/22/2017 Discharge Date:04/22/2017 11:20 AM CM D/C Disposition: ADT D/C Disposition:Intermediate Care Facility Projected Discharge Date:04/22/2017 12:00 AM Transportation at D/C:Friend Discharge Delay Reason: Follow-Up Date:04/22/2017 12:00 AM Discharge Slot: Final Diagnosis: Placement Information Patient Contact Information Contact Name:MAURO Relationship:Sister Address: City:[place] Alternate Phone: State/Zip Code:[place] Email: Financial Information Financial Class:Medicare Advantage Plans Primary Plan Desc:[facility] ADVANTAGE PLANS Primary Plan Number:[id number] Secondary Plan Desc: Secondary Plan Number: Assessment Information [facility] CM Progress Note CM Note CM Note Notes: Pt recently dc'd from [facility] on 04/13, she lives at [facility] but is independent with mobility. She also has a Syrup Maker Cook Lyla Arredondo who works with her, number in chart. CM w/f Date Signed: 04/17/2017 11:33 AM Electronically Signed By:Melany Bernstein RN [facility] CM Progress Note CM Note CM Note Notes: Patient ambulating around unit today, using cane with no assistance. Per patient, has PT/OT available to her at the [facility] if recommended. Patient still has NG, per RN anticipate another 24 hours with NG clamped. Then, will slowly advance diet. Discharge date unknown. Patient has supportive friends, senior case manager. Will coordinate discharge with them when appropriate. Date Signed: 04/20/2017 09:55 AM Electronically Signed By:Adelaide Marina RN [facility] Progress Note CM Note CM Note Notes: CM spoke to JOHNSON Chamberlain regarding pt d/c POC. Pt will discharge back to [facility]. CM recieved a call from Lyla, a case management in the community. CM provided her updates. There may be a chance that her NG tube will be removed today. No therapies ordered at this time. CM available for changes. Date Signed: 04/21/2017 02:13 PM Electronically Signed By:ENRRIQUE Robles [facility] ROSANGELA Progress Note CM Note ROSANGELA Note Notes: Pt is being discharged back to [facility] in [place]. CM spoke w/ Lj at [facility] and confirmed a discharge time. Pt's friend will be transporting pt. CM faxed over orders. CM provided JOHNSON Gabriel w/ phone number to provide report. CM available for changes. Date Signed: 04/22/2017 10:45 AM Electronically Signed By:ENRRIQUE Robles Intervention Information Intervention Type:*IM-Signed Date of Service:04/22/2017 10:40 AM Patient Type:Inpatient Staff Member:Cori Florez Hours: Discipline: Severity: Comment:
--- NOTE | 2017-04-22 22:46 | GDS ---
[f rep st] DISCHARGE SUMMARY DISCHARGE DIAGNOSES: 1. Small bowel obstruction. 2. Scleroderma. 3. Systemic sclerosis unspecified, calcinosis, Raynaud's phenomenon, esophageal dysmotility, sclerod actyly, and telangiectasia. 4. Fibromyalgia. 5. Coronary disease. Please see admission History and Physical by Dr. Jazmín Camarillo. The patient presented overnight of into the , with symptoms of nausea, vomiting, abdominal distention. She had recently been admitted for an abdominal distention. She had a CT late in the evening on the showing persiste nt [id number] dilation of predominantly small bowel loops in the abdomen with some less diste nded small bowel loops in the right lower abdomen as well as transverse colon. No focal point of obs truction. The patient was managed symptomatically with NG tube. She did not require surgical evalua tion or surgery. The patient did not have sepsis. She is discharged home on unchanged medication re karson. /[id number]/MODL
[2017-04-24] MEDS ORDERED: LEVOTHYROXINE 75 MCG TAB PO SCH (06:00)
--- NOTE | 2017-04-25 09:31 | PQFORM ---
PHYSICIAN QUERY FORM Needs Your Response This query form is being sent to you to assure this patient record is coded properly. Please respond to the question below: MEAT SPECIALIST QUESTION: Dear Dr. Lopez, In reviewing this patient medical record it is noted that the patient had the diagnosis of 'hyponatremia'. Patient presented in the ER with nausea and was noted to have been drinking very little. The H&P noted patient had poor oral intake, nausea, and weight loss later diagnosed with 'hyponatremia related to SIADH.' Patients sodium levels were 129 on 04/16, 133 on 04/21. In the Hospitalist progress notes dated 04/17-04/22 patient had the diagnosis of ' hyponatremia' treated with gentle IVF. After study, should the diagnosis of ' Hyponatremia' be included in the discharge summary? __X___ Yes No Other more appropriate diagnosis Unable to determine Thank you LOLA Vicente HIM/Coding Dept. [phone] INSTRUCTIONS FOR RESPONSE: Answer question by clicking on the "Edit Document" button. Move cursor to area below the stars. When complete, hit "Save." Click on the "Sign" button, then click "Sign" again. Type in your PIN and hit "Enter." MTDD
== END 2017-04-22 11:20 | DRG 389 ==
LOC: F3E 04-17 00:06
PROVIDERS: ADMIT Family Medicine; ATTEND Family Medicine
DX: K56.0 Paralytic ileus (principal); E87.1 Hypo-osmolality and hyponatremia; M34.1 CR(E)ST syndrome; M79.7 Fibromyalgia; I25.10 Atherosclerotic heart disease of native coronary artery without angina pectoris; M81.0 Age-related osteoporosis without current pathological fracture; F31.9 Bipolar disorder, unspecified; E03.9 Hypothyroidism, unspecified; E87.6 Hypokalemia; E87.8 Other disorders of electrolyte and fluid balance, not elsewhere classified; Z85.038 Personal history of other malignant neoplasm of large intestine; Z66 Do not resuscitate; Z72.0 Tobacco use
CPT/HCPCS: 82947-QW; 96374; J1170; J2405; Q9967

== ENCOUNTER 2017-05-16 09:30 | Emergency (ER) | payer OTHER ==
[2017-05-16 10:36] LABS: % IMMATURE GRANULYOCYTES 0.4 % (0.0-1.1); ABSOLUTE IMMATURE GRANULOCYTES 0.04 10^3/uL (0.00-0.10); ADD DIFF? NO; ADD MORPH? NO; ADD SCAN? NO; ATYPICAL LYMPHOCYTE FLAG 10 (0-99); FRAGMENT RBC FLAG 0 (0-99); HEMATOCRIT 39.9 % (38.0-47.0); LEFT SHIFT FLG 0 (0-99); LIPEMIA HEMOLYSIS FLAG 90 (0-99); MEAN CELL HEMOGLOBIN 32.7 pg (27.9-34.1); MEAN CELL HEMOGLOBIN CONCENTR. 35.1 g/dL (32.4-36.7); MEAN CELL VOLUME 93.2 fL (81.5-99.8); MEAN PLATELET VOLUME 9.3 fL (8.7-11.7); PLATELET CLUMPS FLAG 30 (0-99); PLATELET COUNT 420 10^3/uL (150-400); RED BLOOD CELL COUNT 4.28 10^6/uL (4.18-5.33); RED CELL DISTRIBUTION WIDTH 16.1 % (11.5-15.2)
--- NOTE | 2017-05-16 10:48 | EDPHY ---
H & P Smoking Status: Former smoker Time Seen by Provider: 05/16/17 10:01 HPI/ROS: HPI Depression. Wants to talk to behavioral health. 67-year-old female with a long history of depression. She is here with her case change management director. She has a history of bipolar disorder as well. She reports that she has been feeling much more depressed over the last several days. She cannot pinpoint an inciting event. She denies being suicidal. Denies any drugs or alcohol. She has a psychiatrist in [place] whom she sees. She wants to be evaluated by Behavioral Health here in the emergency department. ROS: Constitutional: No fever, no chills. No weakness. Eyes: No discharge. No changes in vision. ENT: No sore throat. No nasal congestion or rhinorrhea. Respiratory: No cough. No shortness of breath. Cardiac: No chest pain, no palpitations. Gastrointestinal: No abdominal pain, no vomiting, no diarrhea. Genitourinary: No hematuria. No dysuria or increased frequency with urination. Musculoskeletal: No back pain. No neck pain. No myalgias or arthralgias. Skin: No rashes. Neurological: No headache. No focal weakness or altered sensation. Past medical history: Cecal cancer, scleroderma, Sjogren's syndrome, Raynaud syndrome, COPD, respiratory failure, bipolar, SVT, coronary artery disease, hemicolectomy, orthopedic surgeries. Social history: Former smoker. No alcohol. Lives alone. Here with her mental health case manager. Physical Exam: General Appearance: Alert, flat affect. This patient is responding to questions appropriately and in full sentences. This patient appears well- hydrated and well-nourished. Eyes: Pupils equal and round no pallor or injection. No lid edema, erythema or injection. Respiratory: There are no retractions, lungs are clear to auscultation with good air movement bilaterally. Cardiovascular: Regular rate and rhythm. No murmur. Gastrointestinal: Abdomen is soft and nontender, no masses, bowel sounds normal. No focal tenderness at McBurney's point. No Sanders sign. Neurological: Motor sensory function is grossly intact. Cranial nerves are normal. Gait is normal. Skin: Warm and dry, no rashes. Musculoskeletal: Neck is supple and nontender. Extremities are symmetrical. All joints range without pain or impingement. Psychiatric: No agitation. Flat affect. Database: EKG: Imaging: Procedures: Emergency department course: 10:45 a.m., patient cleared for behavioral health evaluation. Brandon was paged at this time and notify this patient is here. Standard blood work sent from triage. 2:20 p.m., the patient has been evaluated by Behavioral Health. The patient will be placed on an M1 hold will be admitted to a psychiatric facility. Destination for admission is pending at this time. 3:00 p.m., the patient is waiting psychiatric admission. Care turned over to Dr. Raegan Coello at this time. Differential Diagnosis: The differential diagnosis on this patient includes but is not limited to major depression, situational depression. Suicidal ideation unlikely. This represents a partial list of diagnoses considered. These considerations are based on history, physical exam, past history, reassessment and diagnostic testing. (Mariella Payne) Constitutional: Initial Vital Signs Temperature (C) 36.6 C 05/16/17 09:40 Heart Rate 96 05/16/17 09:40 Respiratory Rate 16 05/16/17 09:40 Blood Pressure 124/78 H 05/16/17 09:40 O2 Sat (%) 98 05/16/17 09:40 O2 Delivery Mode Room Air Allergies/Adverse Reactions: lorazepam [From Ativan] Allergy (Severe, Verified 04/16/17 22:33) fluconazole [From Diflucan] Allergy (Intermediate, Verified 04/16/17 22:33) Sulfa (Sulfonamide Antibiotics) Allergy (Intermediate, Verified 04/16/17 22:33) levofloxacin Allergy (Mild, Verified 04/16/17 22:33) Other-Enter Comments Penicillins Allergy (Unknown, Verified 04/16/17 22:33) Unknown haloperidol [From Haldol] Allergy (Verified 04/16/17 22:33) haloperidol lactate [From Haldol] Allergy (Verified 04/16/17 22:33) frandy Allergy (Verified 04/16/17 22:33) pineapple Allergy (Verified 04/16/17 22:33) Quinolones Allergy (Verified 04/16/17 22:33) zolpidem tartrate [From Ambien] Allergy (Verified 04/16/17 22:33) Other-Enter Comments Home Medications: Medication Instructions Recorded Clopidogrel Bisulfate [Plavix (*)] 75 mg PO DAILY #14 tab 04/16/14 Simvastatin [Zocor 10 mg] 10 mg PO HS 06/21/16 Levothyroxine [Synthroid 75 mcg 75 mcg PO TH@06 08/22/16 (*)] Acetaminophen [Tylenol 325mg (*)] 650 mg PO Q4HRS PRN #0 tab 10/06/16 Cariprazine HCl [Vraylar] 3 mg PO DAILY@18 10/15/16 Pantoprazole Sodium [Protonix 40mg 20 mg PO HS 10/27/16 (*)] Benztropine Mesylate [Cogentin (*)] 1 mg PO DAILY 04/11/17 Herbals/Supplements -Info Only 1 ea PO DAILY 04/11/17 Metaxalone [Skelaxin 800 mg (*)] 800 mg PO TID@,,04/11/17 Sodium Chloride [Salt Tablet] 1,000 mg PO TID@,,04/11/17 Eszopiclone [Lunesta] 2 mg PO HS 04/17/17 lamoTRIgine [LamICTAL 100 MG (*)] 300 mg PO DAILY 04/17/17 Medical Decision Making Other Provider: I assumed care of this patient from Dr. Payne at 3 PM. Inpatient hospitalization at [facility] has been arranged. I have signed the EMTALA form. (Raegan Coello) - Data Points Laboratory Results: Laboratory Results 05/16/17 10:00 05/16/17 10:00 05/16/17 05/16/17 05/16/17 10:05 10:00 10:00 WBC 9.35 10^3/uL 10^3/uL (3.80-9.50) RBC 4.28 10^6/uL 10^6/uL (4.18-5.33) Hgb 14.0 g/dL g/dL (12.6-16.3) Hct 39.9 % % (38.0-47.0) MCV 93.2 fL fL (81.5-99.8) MCH 32.7 pg pg (27.9-34.1) MCHC 35.1 g/dL g/dL (32.4-36.7) RDW 16.1 % H % (11.5-15.2) Plt Count 420 10^3/uL H 10^3/uL (150-400) MPV 9.3 fL fL (8.7-11.7) Neut % (Auto) 73.7 % % (39.3-74.2) Lymph % (Auto) 16.5 % % (15.0-45.0) [place] % (Auto) 8.3 % % (4.5-13.0) Eos % (Auto) 0.6 % % (0.6-7.6) Baso % (Auto) 0.5 % % (0.3-1.7) Nucleat RBC Rel Count 0.0 % % (0.0-0.2) Absolute Neuts (auto) 6.88 10^3/uL H 10^3/uL (1.70-6.50) Absolute Lymphs (auto) 1.54 10^3/uL 10^3/uL (1.00-3.00) Absolute Monos (auto) 0.78 10^3/uL 10^3/uL (0.30-0.80) Absolute Eos (auto) 0.06 10^3/uL 10^3/uL (0.03-0.40) Absolute Basos (auto) 0.05 10^3/uL 10^3/uL (0.02-0.10) Absolute Nucleated RBC 0.00 10^3/uL 10^3/uL (0-0.01) Immature Gran % 0.4 % % (0.0-1.1) Immature Gran # 0.04 10^3/uL 10^3/uL (0.00-0.10) Sodium 133 mEq/L L mEq/L (134-144) Potassium 4.8 mEq/L mEq/L (3.5-5.2) Chloride 97 mEq/L mEq/L (97-110) Carbon Dioxide 17 mEq/l L mEq/l (22-31) Anion Gap 19 mEq/L H mEq/L (8-16) BUN 13 mg/dL mg/dL (7-23) Creatinine 0.5 mg/dL L mg/dL (0.6-1.0) Estimated GFR > 60 Glucose 92 mg/dL mg/dL (70-100) Calcium 9.8 mg/dL mg/dL (8.5-10.4) Urine Opiates Screen NEGATIVE (NEGATIVE) Urine Barbiturates NEGATIVE (NEGATIVE) Ur Phencyclidine Scrn NEGATIVE (NEGATIVE) Ur Amphetamine Screen NEGATIVE (NEGATIVE) U Benzodiazepines Scrn NEGATIVE (NEGATIVE) Urine Cocaine Screen NEGATIVE (NEGATIVE) U Marijuana (THC) Screen NEGATIVE (NEGATIVE) Ethyl Alcohol < 10 mg/dL mg/dL (0-10) Medications Given: Discontinued Medications Clopidogrel Bisulfate (Plavix) 75 mg PO EDNOW ONE Stop: 05/16/17 14:42 Last Admin: 05/16/17 15:07 Dose: 75 mg Lamotrigine (Lamictal) 150 mg PO EDNOW ONE Stop: 05/16/17 14:45 Last Admin: 05/16/17 15:51 Dose: 150 mg Metaxalone (Skelaxin) 800 mg PO ONCE ONE Stop: 05/16/17 14:44 Last Admin: 05/16/17 15:55 Dose: 800 mg Potassium Chloride (Potassium Chloride Oral Liquid) 40 meq PO EDNOW ONE Stop: 05/16/17 14:42 Last Admin: 05/16/17 15:07 Dose: 40 meq Sodium Chloride (Salt Tablet) 1,000 mg PO EDNOW ONE Stop: 05/16/17 14:45 Last Admin: 05/16/17 15:55 Dose: 1,000 mg Departure - Departure Disposition: Other Psych, Not [facility] Clinical Impression: Depression Qualifiers: Depression Type: major depressive disorder Major depression recurrence: recurrent Active/Remission status: currently active Major depression episode severity: severe Psychotic features: without psychotic features Qualified Code(s ): F33.2 - Major depressive disorder, recurrent severe without psychotic features Condition: Good Referrals: Fernanda Mcfadden MD [Primary Care Provider] - As per Instructions
[2017-05-16 10:54] LABS: ANION GAP 19 mEq/L (8-16); CALCIUM 9.8 mg/dL (8.5-10.4); CARBON DIOXIDE 17 mEq/l (22-31); CHLORIDE 97 mEq/L (97-110); CREATININE 0.5 mg/dL (0.6-1.0); ETHANOL SERUM < 10 mg/dL (0-10); GLOMERULAR FILTRATION RATE > 60; GLUCOSE 92 mg/dL (70-100); POTASSIUM 4.8 mEq/L (3.5-5.2); SODIUM 133 mEq/L (134-144)
[2017-05-16] MEDS ORDERED: CLOPIDOGREL BISULFATE 75 MG TAB PO ONE (14:41)
[2017-05-16] MEDS ORDERED: POTASSIUM CL 20 MEQ/15 ML UDCUP PO ONE (14:41)
[2017-05-16] MEDS ORDERED: METAXALONE 800 MG TAB PO ONE (14:43)
[2017-05-16] MEDS ORDERED: SODIUM CHLORIDE 1,000 MG TAB PO ONE (14:44)
[2017-05-16] MEDS ORDERED: lamoTRIgine 100 MG TAB PO ONE (14:44)
[2017-05-16] MEDS ORDERED: POTASSIUM CL 20 MEQ TAB ONE (14:59)
[2017-05-16 18:05] VITALS: TEMP 97.2; O2SAT 95
[2017-05-16 18:28] VITALS: BP 110/65; PULSE 82; RESP 16
== END 2017-05-16 18:28 ==
DX: F33.2 Major depressive disorder, recurrent severe without psychotic features (principal); J44.9 Chronic obstructive pulmonary disease, unspecified; I25.10 Atherosclerotic heart disease of native coronary artery without angina pectoris; Z85.030 Personal history of malignant carcinoid tumor of large intestine; Z87.891 Personal history of nicotine dependence
CPT/HCPCS: 80305; G0480

== ENCOUNTER → 2018-11-02 | Outpatient (CLI) | payer OTHER | LOC: FIMAGING 15:03 | PROVIDERS: ATTEND Internal Medicine Hematology & Oncology | DX: R14.0 Abdominal distension (gaseous) (principal); Z85.038 Personal history of other malignant neoplasm of large intestine ==

== ENCOUNTER → 2019-01-12 | Outpatient (CLI) | payer OTHER, MEDICAID | LOC: CIMAGING 12:37 ==